=== PATIENT | male | born 1960 | race Caucasian/White ===

== ENCOUNTER 2016-09-30 11:05 | Inpatient (IN) | payer OTHER ==
[2016-09-30 11:47] VITALS: BMI 24.9
--- NOTE | 2016-09-30 13:36 | HP ---
CIWA Score - CIWA Score Nausea/Vomitin Muscle Tremors: 4-Moderate,w/Arms Extend Anxiety: 4-Mod. Anxious/Guarded Agitation: 4-Moderately Restless Paroxysmal Sweats: 3 Orientation: 0-Oriented Tacttile Disturbances: 0-None Auditory Disturbances: 0-None Visual Disturbances: 0-None Headache: 1-Very Mild CIWA-Ar Total Score: 19 Admission ROS BHS - HPI Chief Complaint: I am here detox. Allergies/Adverse Reactions: Allergies Allergy/AdvReac Type Severity Reaction Status Date / Time Iodine and Iodide Containing Allergy Verified 09/30/16 13:00 Produc History of Present Illness: pt is a 55yr old male with a history of alcohol dependence only seeking detox for treatment. Exam Limitations: Intoxication, Other (inebriate but very cooperative.) - Ebola screening Have you traveled outside of the country in the last 21 days: No Have you had contact with anyone from an Ebola affected area: No Have you been sick,other than usual withdrawal symptoms: No Do you have a fever: No - Review of Systems Constitutional: Diaphoresis, Loss of Appetite, Night Sweats, Changes in sleep, Unintentional Wgt. Loss EENT: reports: Tearing, Nose Congestion Respiratory: reports: No Symptoms reported Cardiac: reports: Lightheadedness, Syncope GI: reports: Diarrhea, Nausea, Poor Appetite, Poor Fluid Intake, Indigestion : reports: No Symptoms Reported Musculoskeletal: reports: No Symptoms Reported, Back Pain Integumentary: reports: Flushing, Sweating Neuro: reports: Tingling, Tremors, Dizziness Endocrine: reports: Excessive Sweating, Flushing, Intolerance to Cold, Intolerance to Heat Hematology: reports: No Symptoms Reported Psychiatric: reports: Judgement Intact, Mood/Affect Appropiate, Orientated x3, Agitated, Anxious Other Systems: Reviewed and Negative Patient History - Patient Medical History Hx Anemia: No Hx Asthma: No Hx Chronic Obstructive Pulmonary Disease (COPD): No Hx Cancer: No Hx Cardiac Disorders: No Hx Congestive Heart Failure: No Hx Hypertension: Yes Hx Hypercholesterolemia: Yes (TRIGLYCERIDES) Hx Pacemaker: No HX Cerebrovascular Accident: No Hx Seizures: No Hx Dementia: No Hx Diabetes: Yes (TYPE II) Hx Gastrointestinal Disorders: Yes (GERD NO MEDS) Hx Liver Disease: No Hx Genitourinary Disorders: No Hx Sexually Transmitted Disorders: No Hx Renal Disease (ESRD): No Hx Thyroid Disease: No Hx Human Immunodeficiency Virus (HIV): No Hx Hepatitis C: No Hx Depression: Yes Hx Suicide Attempt: No Hx Bipolar Disorder: No Hx Schizophrenia: No - Patient Surgical History Past Surgical History: Yes Hx Abdominal Surgery: Yes (EXPLORATORY LAP. TO REMOVE FOREIGN BODY) - PPD History Previous Implant?: Yes Documented Results: Negative w/o proof PPD to be Administered?: Yes - Reproductive History Patient is a Female of Child Bearing Age (11 -55 yrs old): No - Smoking Cessation Smoking history: Current every day smoker Aproximately how many cigarettes per day: 10 Hx Chewing Tobacco Use: No Initiated information on smoking cessation: Yes 'Breaking Loose' booklet given: 09/30/16 - Substance & Tx. History Hx Alcohol Use: Yes Hx Substance Use: No Substance Use Type: Alcohol Hx Substance Use Treatment: Yes - Substances Abused Alcohol Route: Oral Frequency: Daily Amount used: scotch(Pint) Age of first use: 20 Date of Last Use: 09/30/16 Family Disease History - Family Disease History Family Disease History: Heart Disease: Mother (HTN), Other: Father () Admission Physical Exam S - Vital Signs Vital Signs: Vital Signs - 24 hr 09/30/16 11:43 Temperature 95.7 F L Pulse Rate 101 H Respiratory 20 Rate Blood Pressure 150/92 - Physical General Appearance: Yes: Appropriately Dressed, Moderate Distress, Tremorous, Irritable, Sweating, Anxious HEENTM: Yes: Nasal Congestion, Rhinorrhea Respiratory: Yes: Lungs Clear, Normal Breath Sounds, No Respiratory Distress Neck: Yes: No masses,lesions,Nodules Breast: Yes: Within Normal Limits Cardiology: Yes: Regular Rhythm, Regular Rate, S1, S2, Tachycardia Abdominal: Yes: Normal Bowel Sounds, Non Tender, Soft Genitourinary: Yes: Within Normal Limits Back: Yes: Normal Inspection Musculoskeletal: Yes: full range of Motion Extremities: Yes: Normal Capillary Refill, Normal Inspection, Non-Tender, Tremors Neurological: Yes: Fully Oriented, Alert, Normal Response Integumentary: Yes: Normal Color, Diaphoresis Lymphatic: Yes: Within Normal Limits - Diagnostic (1) Alcohol dependence with uncomplicated withdrawal Current Visit: Yes Status: Chronic (2) Nicotine dependence Current Visit: Yes Status: Chronic Qualifiers: Nicotine product type: cigarettes Substance use status: uncomplicated Qualified Code(s): F17.210 - Nicotine dependence, cigarettes, uncomplicated (3) HTN (hypertension) Current Visit: Yes Status: Chronic Qualifiers: Hypertension type: essential hypertension Qualified Code(s): I10 - Essential (primary) hypertension (4) Hypertriglyceridemia Current Visit: Yes Status: Chronic (5) Type II diabetes mellitus Current Visit: Yes Status: Chronic Qualifiers: Diabetes mellitus complication status: without complication Cleared for Admission [facility] - Detox or Rehab [facility] Level of Care: Medically Managed Detox Regimen/Protocol: Librium S Breath Alcohol Content Breath Alcohol Content: 0.326 Urine Drug Screen - Results Drug Screen Negative: No
[2016-09-30] MEDS ORDERED: MAGNESIUM HYDROX 2400MG/30ML ORAL SUSPENSION 30 ML CUP PO PRN (13:55)
[2016-09-30] MEDS ORDERED: NICOTINE POLACRILEX 4 MG GUM BUC PRN (13:55)
[2016-09-30] MEDS ORDERED: LOPERAMIDE HCL 2 MG CAPSULE PO PRN (13:55)
[2016-09-30] MEDS ORDERED: P-EPHED 60MG/TRIPROLIDI 2.5MG TABLET PO PRN (13:55)
[2016-09-30] MEDS ORDERED: IBUPROFEN 400 MG TABLET (FP) PO PRN (13:55)
[2016-09-30] MEDS ORDERED: MENTHOL/PHENOL 1 EACH UD MM PRN (13:55)
[2016-09-30] MEDS ORDERED: guaiFENesin/D-METHORPHAN HB 10 ML UNIT-DOSE CUPS PO PRN (13:55)
[2016-09-30] MEDS ORDERED: MAGNESIUM CITRATE 300 ML BOTTLE PO PRN (13:55)
[2016-09-30] MEDS ORDERED: MAG HYDROX/AL HYDROX/SIMETH 30 ML UNIT-DOSE CUP PO PRN (13:55)
[2016-09-30] MEDS ORDERED: ACETAMINOPHEN 325 MG TABLET (FP) PO PRN (13:55)
[2016-09-30] MEDS ORDERED: chlordiazePOXIDE HCL 25 MG CAPSULE PO ONE (14:20)
[2016-09-30] MEDS: GABAPENTIN 300 MG CAPSULE (FP) PO SCH ×2 (15:30→22:06)
[2016-09-30] MEDS: INSULIN SLIDING SCALE (NOVOLOG) 1 VIAL SQ SCH (16:44)
[2016-09-30] MEDS: chlordiazePOXIDE HCL 25 MG CAPSULE PO SCH ×2 (17:07→22:05)
[2016-09-30 17:32] LABS: URINE APPEARANCE CLEAR; URINE BILIRUBIN NEGATIVE (NEGATIVE); URINE COLOR LTYELLOW; URINE GLUCOSE (UA) 1+ (NEGATIVE); URINE KETONE NEGATIVE (NEGATIVE); URINE LEUK ESTERASE NEGATIVE (NEGATIVE); URINE NITRITE NEGATIVE (NEGATIVE); URINE UROBILINOGEN NEGATIVE E.U./dl (0.2-1.0)
[2016-09-30 17:33] LABS: URINE BLOOD 2+ (NEGATIVE); URINE PROTEIN 3+ (NEGATIVE)
[2016-09-30 17:45] LABS: URINE BACTERIA FEW /hpf (NONE SEEN); URINE HYALINE CAST 8 /lpf; URINE MUCUS RARE; URINE RBC 1 /hpf (0-3); URINE WBC 1 /hpf (3-5)
[2016-09-30] MEDS: hydrOXYzine PAMOATE 50 MG CAPSULE (FP) PO PRN (18:51)
[2016-09-30 19:46] LABS: HIV 1 & 2 AB NEGATIVE; HIV 1 AGp24 NEGATIVE
[2016-09-30] MEDS ORDERED: cloNIDine HCL 0.1 MG TABLET PO PRN (20:25)
[2016-09-30] MEDS ORDERED: LOSARTAN POTASSIUM 50 MG TABLET (FP) PO SCH (20:30)
[2016-09-30] MEDS: chlordiazePOXIDE HCL 25 MG CAPSULE PO PRN (20:39)
[2016-09-30] MEDS: amLODIPine BESYLATE 10 MG TABLET (FP) PO SCH (20:58)
[2016-09-30] MEDS: THIAMINE HCL 100 MG TABLET (FP) PO SCH (22:04)
[2016-09-30] MEDS: CILOSTAZOL 50 MG TABLET (FP) PO SCH (22:05)
[2016-09-30] MEDS: diphenhydrAMINE HCL 50 MG CAPSULE PO PRN (22:07)
[2016-09-30] MEDS ORDERED: INSULIN DETEMIR 100 UNITS/ML MDV SQ ONE (22:11)
[2016-09-30] MEDS: INSULIN DETEMIR 100 UNITS/ML MDV SQ SCH (22:49)
[2016-10-01] MEDS: chlordiazePOXIDE HCL 25 MG CAPSULE PO SCH ×4 (05:58→22:02)
[2016-10-01] MEDS: GABAPENTIN 300 MG CAPSULE (FP) PO SCH ×3 (06:44→22:02)
[2016-10-01] MEDS: INSULIN SLIDING SCALE (NOVOLOG) 1 VIAL SQ SCH ×2 (06:46→17:09)
[2016-10-01] MEDS ORDERED: GEMFIBROZIL 600 MG TABLET (FP) PO SCH (07:30)
[2016-10-01] MEDS: chlordiazePOXIDE HCL 25 MG CAPSULE PO PRN ×2 (09:10→14:19)
[2016-10-01] MEDS: INSULIN DETEMIR 100 UNITS/ML MDV SQ SCH ×2 (09:11→21:54)
[2016-10-01] MEDS ORDERED: amLODIPine BESYLATE 10 MG TABLET (FP) PO SCH (10:00)
[2016-10-01] MEDS ORDERED: ESCITALOPRAM OXALATE 20 MG TABLET (FP) PO ONE (10:00)
[2016-10-01] MEDS ORDERED: LOSARTAN POTASSIUM 50 MG TABLET (FP) PO SCH (10:00)
[2016-10-01] MEDS: ATORVASTATIN CA 40 MG TABLET (FP) PO SCH (10:17)
[2016-10-01] MEDS: PRENATAL VITAMINS W/ FOLIC ACID TABLET (FP) PO SCH (10:17)
[2016-10-01] MEDS: ASPIRIN 81 MG CHEWABLE TABLETS PO SCH (10:17)
[2016-10-01] MEDS: CLOPIDOGREL BISULFATE 75 MG TABLET (FP) PO SCH (10:17)
[2016-10-01] MEDS: amLODIPine BESYLATE 10 MG TABLET (FP) PO SCH (10:18)
[2016-10-01] MEDS: LOSARTAN POTASSIUM 50 MG TABLET (FP) PO SCH (10:18)
[2016-10-01] MEDS: NICOTINE 21 MG/24 HOURS TOPICAL PATCH TD SCH (10:21)
[2016-10-01] MEDS: CILOSTAZOL 50 MG TABLET (FP) PO SCH ×2 (10:21→22:03)
[2016-10-01 10:34] LABS: ALBUMIN 4.1 g/dl (3.4-5.0); BILIRUBIN,TOTAL 0.5 mg/dL (0.2-1.0); CALCIUM 8.8 mg/dL (8.5-10.1); CREATININE 1.5 mg/dL (0.7-1.3); TOT PROT 7.4 g/dl (6.4-8.2)
[2016-10-01] MEDS: CYANOCOBALAMIN (VITAMIN B-12) 100 MCG TABLET PO SCH (11:09)
[2016-10-01] MEDS: PYRIDOXINE HCL (B-6) 50 MG TABLET (FP) PO SCH (11:11)
--- NOTE | 2016-10-01 13:42 | CONSULT ---
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 Substance Abuse History: - Smoking Cessation. Smoking history: Current every day smoker. Aproximately how many cigarettes per day: 10. Hx Chewing Tobacco Use: No. Initiated information on smoking cessation: Yes. 'Breaking Loose' booklet given: 09/30/16. - Substance & Tx. History. Hx Alcohol Use: Yes. Hx Substance Use: No. Substance Use Type: Alcohol. Hx Substance Use Treatment: Yes. - Substances Abused. Alcohol. Route: Oral. Frequency: Daily. Amount used: scotch(Pint). Age of first use: 20. Date of Last Use: 09/30/16. Confirmed by patient. Medical History: Significant for a history of dyslipidemia,gallstones,diabetes mellitus,GERD,low back pain,herniated discs and abdominal surgery for removal of foreign body. Psychiatric History: No reported history of psychiatric hospitalizations.Patientis,however,addressing anxiety and depression with his primary care physician (prescribed lexapro 20 mg/day).Patient denies history of suicide attempts.Mr Delfin reports adequate sleep.He requests continuity of lexapro in his regime of treatment. Physical/Sexual Abuse/Trauma History: Patient denies. Mental Status Exam - Mental Status Exam Alert and Oriented to: Time, Place, Person Cognitive Function: Good Patient Appearance: Well Groomed Mood: Hopeful, Euthymic Affect: Appropriate, Normal Range Patient Behavior: Appropriate, Cooperative Speech Pattern: Clear Voice Loudness: Normal Thought Process: Goal Oriented Thought Disorder: Not Present Hallucinations: Denies Suicidal Ideation: Denies Homicidal Ideation: Denies Insight/Judgement: Fair Sleep: Well Appetite: Good Muscle strength/Tone: Normal Gait/Station: Normal Psychiatric Findings - Problem List ([place] 1, 2,3) (1) Alcohol dependence with uncomplicated withdrawal Current Visit: Yes Status: Acute (2) Nicotine dependence Current Visit: Yes Status: Acute Qualifiers: Nicotine product type: cigarettes Substance use status: uncomplicated Qualified Code(s): F17.210 - Nicotine dependence, cigarettes, uncomplicated (3) Alcohol-induced mood disorder Current Visit: Yes Status: Acute (4) Depressive disorder Current Visit: Yes Status: Chronic (5) HTN (hypertension) Current Visit: Yes Status: Chronic Qualifiers: Hypertension type: essential hypertension Qualified Code(s): I10 - Essential (primary) hypertension (6) Hypertriglyceridemia Current Visit: Yes Status: Chronic (7) Type II diabetes mellitus Current Visit: Yes Status: Chronic Qualifiers: Diabetes mellitus complication status: without complication - Initial Treatment Plan Initial Treatment Plan: Psychoeducation.Detoxification.Lexapro 20 mg po daily.Side effects/benefits discussed with the patient.He agrees with plan.Observation.
[2016-10-01 14:08] LABS: MCH 30.1 pg (25.7-33.7); MCHC 33.5 g/dl (32.0-35.9); MEAN CELL VOLUME 89.7 fl (80-96); MEAN PLT VOLUME 8.1 fl (7.5-11.1); PLATELET COUNT 210 K/MM3 (134-434); RDW 14.1 % (11.9-15.9); WHITE BLOOD COUNT 5.3 K/mm3 (4.0-10.0)
[2016-10-01] MEDS: ESCITALOPRAM OXALATE 20 MG TABLET (FP) PO SCH (14:18)
--- NOTE | 2016-10-01 14:26 | PN ---
[facility] CIWA - CIWA Score Nausea/Vomitin-Mild Nausea/No Vomiting Muscle Tremors: 4-Moderate,w/Arms Extend Anxiety: 4-Mod. Anxious/Guarded Agitation: 4-Moderately Restless Paroxysmal Sweats: 3 Orientation: 0-Oriented Tacttile Disturbances: 1-Very Mild Itch/Numbness Auditory Disturbances: 0-None Visual Disturbances: 0-None Headache: 0-None Present CIWA-Ar Total Score: 17 S Progress Note (SOAP) Subjective: ANXIETY,TREMORS,SWEATING,INTERRUPTED SLEEP,RESTLESS. Objective: 10/01/16 14:25 Vital Signs - 8 hr 10/01/16 10/01/16 07:53 09:37 Temperature 97.2 F L Pulse Rate 78 89 Respiratory 18 Rate Blood Pressure 131/68 155/83 Laboratory Tests 09/30/16 09/30/16 09/30/16 13:40 15:00 15:00 WBC Corrected WBC (auto) RBC Hgb Hct MCV MCHC RDW Plt Count MPV Differential Comment Platelet Estimate Platelet Comment RBC Morphology Sodium Potassium Chloride Carbon Dioxide Anion Gap BUN Creatinine Creat Clearance w eGFR POC Glucometer 150 Random Glucose Calcium Total Bilirubin AST ALT Alkaline Phosphatase Total Protein Albumin Urine Color Ltyellow Urine Appearance Clear Urine pH 5.0 Ur Specific [place] 1.017 Urine Protein 3+ H Urine Glucose (UA) 1+ H Urine Ketones Negative Urine Blood 2+ H Urine Nitrite Negative Urine Bilirubin Negative Urine Urobilinogen Negative Ur Leukocyte Esterase Negative Urine RBC 1 Urine WBC 1 Ur Epithelial Cells Rare Urine Bacteria Few Hyaline Casts 8 Urine Mucus Rare RPR Titer HIV 1&2 Antibody Screen Negative HIV P24 Antigen Negative 09/30/16 09/30/16 10/01/16 16:23 20:42 06:00 WBC Cancelled Corrected WBC (auto) Cancelled RBC Cancelled Hgb Cancelled Hct Cancelled MCV Cancelled MCHC Cancelled RDW Cancelled Plt Count Cancelled MPV Cancelled Differential Comment Cancelled Platelet Estimate Cancelled Platelet Comment Cancelled RBC Morphology Cancelled Sodium Potassium Chloride Carbon Dioxide Anion Gap BUN Creatinine Creat Clearance w eGFR POC Glucometer 136 181 Random Glucose Calcium Total Bilirubin AST ALT Alkaline Phosphatase Total Protein Albumin Urine Color Urine Appearance Urine pH Ur Specific [place] Urine Protein Urine Glucose (UA) Urine Ketones Urine Blood Urine Nitrite Urine Bilirubin Urine Urobilinogen Ur Leukocyte Esterase Urine RBC Urine WBC Ur Epithelial Cells Urine Bacteria Hyaline Casts Urine Mucus RPR Titer HIV 1&2 Antibody Screen HIV P24 Antigen 10/01/16 10/01/16 10/01/16 06:00 06:00 06:42 WBC Corrected WBC (auto) RBC Hgb Hct MCV MCHC RDW Plt Count MPV Differential Comment Platelet Estimate Platelet Comment RBC Morphology Sodium 145 Potassium 4.0 Chloride 108 H Carbon Dioxide 25 Anion Gap 12 BUN 19 H Creatinine 1.5 H Creat Clearance w eGFR 48.95 POC Glucometer 76 Random Glucose 164 H D Calcium 8.8 Total Bilirubin 0.5 D AST 53 H D ALT 45 D Alkaline Phosphatase 87 Total Protein 7.4 Albumin 4.1 Urine Color Urine Appearance Urine pH Ur Specific [place] Urine Protein Urine Glucose (UA) Urine Ketones Urine Blood Urine Nitrite Urine Bilirubin Urine Urobilinogen Ur Leukocyte Esterase Urine RBC Urine WBC Ur Epithelial Cells Urine Bacteria Hyaline Casts Urine Mucus RPR Titer Nonreactive HIV 1&2 Antibody Screen HIV P24 Antigen 10/01/16 10/01/16 09:08 11:30 WBC 5.3 Corrected WBC (auto) RBC 4.56 Hgb 13.7 Hct 40.9 MCV 89.7 MCHC 33.5 RDW 14.1 D Plt Count 210 D MPV 8.1 D Differential Comment Platelet Estimate Platelet Comment RBC Morphology Sodium Potassium Chloride Carbon Dioxide Anion Gap BUN Creatinine Creat Clearance w eGFR POC Glucometer 184 Random Glucose Calcium Total Bilirubin AST ALT Alkaline Phosphatase Total Protein Albumin Urine Color Urine Appearance Urine pH Ur Specific [place] Urine Protein Urine Glucose (UA) Urine Ketones Urine Blood Urine Nitrite Urine Bilirubin Urine Urobilinogen Ur Leukocyte Esterase Urine RBC Urine WBC Ur Epithelial Cells Urine Bacteria Hyaline Casts Urine Mucus RPR Titer HIV 1&2 Antibody Screen HIV P24 Antigen LABS NOTED Assessment: 10/01/16 14:25 WITHDRAWAL SX. Plan: CONTINUE DETOX
[2016-10-01] MEDS ORDERED: INSULIN (NOVOLOG) ASPART 100 UNITS/ML 10ML VIAL ONE ×2 (16:52→21:30)
[2016-10-01] MEDS: THIAMINE HCL 100 MG TABLET (FP) PO SCH (22:03)
[2016-10-02] MEDS: chlordiazePOXIDE HCL 25 MG CAPSULE PO SCH ×2 (06:07→10:31)
[2016-10-02] MEDS: GABAPENTIN 300 MG CAPSULE (FP) PO SCH ×3 (06:08→22:37)
[2016-10-02] MEDS: INSULIN DETEMIR 100 UNITS/ML MDV SQ SCH ×2 (08:57→22:38)
[2016-10-02] MEDS: INSULIN SLIDING SCALE (NOVOLOG) 1 VIAL SQ SCH ×2 (08:57→17:15)
[2016-10-02] MEDS: ASPIRIN 81 MG CHEWABLE TABLETS PO SCH (10:30)
[2016-10-02] MEDS: NICOTINE 21 MG/24 HOURS TOPICAL PATCH TD SCH (10:31)
[2016-10-02] MEDS: ESCITALOPRAM OXALATE 20 MG TABLET (FP) PO SCH (10:31)
[2016-10-02] MEDS: PYRIDOXINE HCL (B-6) 50 MG TABLET (FP) PO SCH (10:31)
[2016-10-02] MEDS: CILOSTAZOL 50 MG TABLET (FP) PO SCH ×2 (10:31→22:37)
[2016-10-02] MEDS: PRENATAL VITAMINS W/ FOLIC ACID TABLET (FP) PO SCH (10:31)
[2016-10-02] MEDS: amLODIPine BESYLATE 10 MG TABLET (FP) PO SCH (10:31)
[2016-10-02] MEDS: LOSARTAN POTASSIUM 50 MG TABLET (FP) PO SCH (10:31)
[2016-10-02] MEDS: ATORVASTATIN CA 40 MG TABLET (FP) PO SCH (10:31)
[2016-10-02] MEDS: CLOPIDOGREL BISULFATE 75 MG TABLET (FP) PO SCH (10:31)
[2016-10-02] MEDS: CYANOCOBALAMIN (VITAMIN B-12) 100 MCG TABLET PO SCH (10:32)
[2016-10-02] MEDS: chlordiazePOXIDE HCL 25 MG CAPSULE PO PRN (14:47)
[2016-10-02] MEDS ORDERED: INSULIN (NOVOLOG) ASPART 100 UNITS/ML 10ML VIAL ONE (16:45)
[2016-10-02] MEDS: chlordiazePOXIDE 5 MG CAPSULE PO SCH ×2 (17:15→22:37)
[2016-10-02] MEDS: hydrOXYzine PAMOATE 50 MG CAPSULE (FP) PO PRN (20:10)
--- NOTE | 2016-10-02 21:52 | PN ---
[id number] Anxiety: 4-Mod. Anxious/Guarded Agitation: 3 Paroxysmal Sweats: 3 Orientation: 0-Oriented Tacttile Disturbances: 1-Very Mild Itch/Numbness Auditory Disturbances: 0-None Visual Disturbances: 0-None Headache: 0-None Present CIWA-Ar Total Score: 17 BHS Progress Note (SOAP) Subjective: ANXIETY,TREMORS,SWEATING,INTERRUPTED SLEEP,RESTLESS. Objective: 10/02/16 21:51 Vital Signs Temperature 96.8 F L 10/02/16 20:09 Pulse Rate 88 10/02/16 20:09 Respiratory Rate 16 10/02/16 20:09 Blood Pressure 114/63 10/02/16 20:09 O2 Sat by Pulse Oximetry (%) Assessment: 10/02/16 21:52 Withdrawal sx. Plan: CONTINUE DETOX
[2016-10-02] MEDS: THIAMINE HCL 100 MG TABLET (FP) PO SCH (22:37)
[2016-10-02] MEDS: diphenhydrAMINE HCL 50 MG CAPSULE PO PRN (22:38)
[2016-10-03] MEDS: GABAPENTIN 300 MG CAPSULE (FP) PO SCH ×3 (05:37→22:28)
[2016-10-03] MEDS: chlordiazePOXIDE 5 MG CAPSULE PO SCH ×2 (05:37→10:11)
[2016-10-03] MEDS: INSULIN DETEMIR 100 UNITS/ML MDV SQ SCH ×2 (07:41→22:30)
[2016-10-03] MEDS: INSULIN SLIDING SCALE (NOVOLOG) 1 VIAL SQ SCH ×2 (07:42→16:30)
[2016-10-03] MEDS ORDERED: INSULIN (NOVOLOG) ASPART 100 UNITS/ML 10ML VIAL ONE ×2 (07:46→17:05)
[2016-10-03] MEDS: PYRIDOXINE HCL (B-6) 50 MG TABLET (FP) PO SCH (10:10)
[2016-10-03] MEDS: amLODIPine BESYLATE 10 MG TABLET (FP) PO SCH (10:10)
[2016-10-03] MEDS: CLOPIDOGREL BISULFATE 75 MG TABLET (FP) PO SCH (10:10)
[2016-10-03] MEDS: ESCITALOPRAM OXALATE 20 MG TABLET (FP) PO SCH (10:10)
[2016-10-03] MEDS: ASPIRIN 81 MG CHEWABLE TABLETS PO SCH (10:10)
[2016-10-03] MEDS: NICOTINE 21 MG/24 HOURS TOPICAL PATCH TD SCH (10:11)
[2016-10-03] MEDS: PRENATAL VITAMINS W/ FOLIC ACID TABLET (FP) PO SCH (10:11)
[2016-10-03] MEDS: CYANOCOBALAMIN (VITAMIN B-12) 100 MCG TABLET PO SCH (10:11)
[2016-10-03] MEDS: ATORVASTATIN CA 40 MG TABLET (FP) PO SCH (10:11)
[2016-10-03] MEDS: LOSARTAN POTASSIUM 50 MG TABLET (FP) PO SCH (10:11)
[2016-10-03] MEDS: CILOSTAZOL 50 MG TABLET (FP) PO SCH ×2 (10:11→22:28)
[2016-10-03] MEDS: hydrOXYzine PAMOATE 50 MG CAPSULE (FP) PO PRN (15:02)
[2016-10-03] MEDS ORDERED: ZOLPIDEM TARTRATE 10 MG TABLET (PARK CARE ONLY) PO PRN (16:13)
--- NOTE | 2016-10-03 16:18 | PN ---
S Progress Note (SOAP) Subjective: Sweating, tremor, interrupted sleep (benadryl ineffective, wants ambien), anxiety Objective: 10/03/16 16:14 Last Vital Signs Temp Pulse Resp BP Pulse Ox 97 F L 97 H 18 150/85 10/03/16 13:54 10/03/16 13:54 10/03/16 13:54 10/03/16 13:54 Laboratory Tests 09/30/16 09/30/16 09/30/16 13:40 15:00 15:00 WBC Corrected WBC (auto) RBC Hgb Hct MCV MCHC RDW Plt Count MPV Differential Comment Platelet Estimate Platelet Comment RBC Morphology Sodium Potassium Chloride Carbon Dioxide Anion Gap BUN Creatinine Creat Clearance w eGFR POC Glucometer 150 Random Glucose Calcium Total Bilirubin AST ALT Alkaline Phosphatase Total Protein Albumin Urine Color Ltyellow Urine Appearance Clear Urine pH 5.0 Ur Specific [place] 1.017 Urine Protein 3+ H Urine Glucose (UA) 1+ H Urine Ketones Negative Urine Blood 2+ H Urine Nitrite Negative Urine Bilirubin Negative Urine Urobilinogen Negative Ur Leukocyte Esterase Negative Urine RBC 1 Urine WBC 1 Ur Epithelial Cells Rare Urine Bacteria Few Hyaline Casts 8 Urine Mucus Rare RPR Titer HIV 1&2 Antibody Screen Negative HIV P24 Antigen Negative 09/30/16 09/30/16 10/01/16 16:23 20:42 06:00 WBC Cancelled Corrected WBC (auto) Cancelled RBC Cancelled Hgb Cancelled Hct Cancelled MCV Cancelled MCHC Cancelled RDW Cancelled Plt Count Cancelled MPV Cancelled Differential Comment Cancelled Platelet Estimate Cancelled Platelet Comment Cancelled RBC Morphology Cancelled Sodium Potassium Chloride Carbon Dioxide Anion Gap BUN Creatinine Creat Clearance w eGFR POC Glucometer 136 181 Random Glucose Calcium Total Bilirubin AST ALT Alkaline Phosphatase Total Protein Albumin Urine Color Urine Appearance Urine pH Ur Specific [place] Urine Protein Urine Glucose (UA) Urine Ketones Urine Blood Urine Nitrite Urine Bilirubin Urine Urobilinogen Ur Leukocyte Esterase Urine RBC Urine WBC Ur Epithelial Cells Urine Bacteria Hyaline Casts Urine Mucus RPR Titer HIV 1&2 Antibody Screen HIV P24 Antigen 10/01/16 10/01/16 10/01/16 06:00 06:00 06:42 WBC Corrected WBC (auto) RBC Hgb Hct MCV MCHC RDW Plt Count MPV Differential Comment Platelet Estimate Platelet Comment RBC Morphology Sodium 145 Potassium 4.0 Chloride 108 H Carbon Dioxide 25 Anion Gap 12 BUN 19 H Creatinine 1.5 H Creat Clearance w eGFR 48.95 POC Glucometer 76 Random Glucose 164 H D Calcium 8.8 Total Bilirubin 0.5 D AST 53 H D ALT 45 D Alkaline Phosphatase 87 Total Protein 7.4 Albumin 4.1 Urine Color Urine Appearance Urine pH Ur Specific [place] Urine Protein Urine Glucose (UA) Urine Ketones Urine Blood Urine Nitrite Urine Bilirubin Urine Urobilinogen Ur Leukocyte Esterase Urine RBC Urine WBC Ur Epithelial Cells Urine Bacteria Hyaline Casts Urine Mucus RPR Titer Nonreactive HIV 1&2 Antibody Screen HIV P24 Antigen 10/01/16 10/01/16 10/01/16 09:08 11:30 16:19 WBC 5.3 Corrected WBC (auto) RBC 4.56 Hgb 13.7 Hct 40.9 MCV 89.7 MCHC 33.5 RDW 14.1 D Plt Count 210 D MPV 8.1 D Differential Comment Platelet Estimate Platelet Comment RBC Morphology Sodium Potassium Chloride Carbon Dioxide Anion Gap BUN Creatinine Creat Clearance w eGFR POC Glucometer 184 220 Random Glucose Calcium Total Bilirubin AST ALT Alkaline Phosphatase Total Protein Albumin Urine Color Urine Appearance Urine pH Ur Specific [place] Urine Protein Urine Glucose (UA) Urine Ketones Urine Blood Urine Nitrite Urine Bilirubin Urine Urobilinogen Ur Leukocyte Esterase Urine RBC Urine WBC Ur Epithelial Cells Urine Bacteria Hyaline Casts Urine Mucus RPR Titer HIV 1&2 Antibody Screen HIV P24 Antigen 10/01/16 10/02/16 10/02/16 20:56 06:05 16:22 WBC Corrected WBC (auto) RBC Hgb Hct MCV MCHC RDW Plt Count MPV Differential Comment Platelet Estimate Platelet Comment RBC Morphology Sodium Potassium Chloride Carbon Dioxide Anion Gap BUN Creatinine Creat Clearance w eGFR POC Glucometer 180 180 359 Random Glucose Calcium Total Bilirubin AST ALT Alkaline Phosphatase Total Protein Albumin Urine Color Urine Appearance Urine pH Ur Specific [place] Urine Protein Urine Glucose (UA) Urine Ketones Urine Blood Urine Nitrite Urine Bilirubin Urine Urobilinogen Ur Leukocyte Esterase Urine RBC Urine WBC Ur Epithelial Cells Urine Bacteria Hyaline Casts Urine Mucus RPR Titer HIV 1&2 Antibody Screen HIV P24 Antigen 10/02/16 10/03/16 21:43 05:35 WBC Corrected WBC (auto) RBC Hgb Hct MCV MCHC RDW Plt Count MPV Differential Comment Platelet Estimate Platelet Comment RBC Morphology Sodium Potassium Chloride Carbon Dioxide Anion Gap BUN Creatinine Creat Clearance w eGFR POC Glucometer 198 178 Random Glucose Calcium Total Bilirubin AST ALT Alkaline Phosphatase Total Protein Albumin Urine Color Urine Appearance Urine pH Ur Specific [place] Urine Protein Urine Glucose (UA) Urine Ketones Urine Blood Urine Nitrite Urine Bilirubin Urine Urobilinogen Ur Leukocyte Esterase Urine RBC Urine WBC Ur Epithelial Cells Urine Bacteria Hyaline Casts Urine Mucus RPR Titer HIV 1&2 Antibody Screen HIV P24 Antigen Labs noted: serum creatinine 1.5, bun 19, glucose 164, UA 2+ blood and 3+ protein Assessment: 10/03/16 16:18 Withdrawal symptoms Pre renal azotemia noted Hyperglycemia secondary to DMT2 noted Plan: Continue detox Pre renal azotemia: encourage to drink more water, repeat UA and BMP in AM Hyperglycemia secondary to DMT2: continue present regimen
[2016-10-03] MEDS: chlordiazePOXIDE HCL 10 MG CAPSULE PO SCH ×2 (17:32→22:29)
[2016-10-03] MEDS: THIAMINE HCL 100 MG TABLET (FP) PO SCH (22:28)
[2016-10-04] MEDS: GABAPENTIN 300 MG CAPSULE (FP) PO SCH (05:39)
[2016-10-04] MEDS: chlordiazePOXIDE HCL 10 MG CAPSULE PO SCH ×2 (05:39→10:19)
[2016-10-04] MEDS ORDERED: INSULIN (NOVOLOG) ASPART 100 UNITS/ML 10ML VIAL ONE (06:14)
[2016-10-04] MEDS: INSULIN DETEMIR 100 UNITS/ML MDV SQ SCH (07:31)
[2016-10-04] MEDS: INSULIN SLIDING SCALE (NOVOLOG) 1 VIAL SQ SCH (07:32)
[2016-10-04 10:15] VITALS: BP 134/79; PULSE 94; TEMP 95.9
[2016-10-04] MEDS: ASPIRIN 81 MG CHEWABLE TABLETS PO SCH (10:18)
[2016-10-04] MEDS: amLODIPine BESYLATE 10 MG TABLET (FP) PO SCH (10:18)
[2016-10-04] MEDS: CLOPIDOGREL BISULFATE 75 MG TABLET (FP) PO SCH (10:18)
[2016-10-04] MEDS: ESCITALOPRAM OXALATE 20 MG TABLET (FP) PO SCH (10:18)
[2016-10-04] MEDS: LOSARTAN POTASSIUM 50 MG TABLET (FP) PO SCH (10:18)
[2016-10-04] MEDS: PRENATAL VITAMINS W/ FOLIC ACID TABLET (FP) PO SCH (10:19)
[2016-10-04] MEDS: PYRIDOXINE HCL (B-6) 50 MG TABLET (FP) PO SCH (10:19)
[2016-10-04] MEDS: CYANOCOBALAMIN (VITAMIN B-12) 100 MCG TABLET PO SCH (10:20)
[2016-10-04] MEDS: ATORVASTATIN CA 40 MG TABLET (FP) PO SCH (10:20)
[2016-10-04] MEDS: NICOTINE 21 MG/24 HOURS TOPICAL PATCH TD SCH (10:20)
[2016-10-04] MEDS: CILOSTAZOL 50 MG TABLET (FP) PO SCH (10:20)
[2016-10-04 10:27] LABS: CALCIUM 8.4 mg/dL (8.5-10.1); CREATININE 1.5 mg/dL (0.7-1.3)
--- NOTE | 2016-10-04 10:28 | DS ---
[facility] Detox Discharge Summary Admission Date: 09/30/16 Discharge Date: 10/04/16 - History Present History: Alcohol Dependence Pertinent Past History: HTN HYPERTRIGLYCERIDEMIA TYPE II DM - Physical Exam Results Vital Signs: Vital Signs Temperature 95.9 F L 10/04/16 10:14 Pulse Rate 94 H 10/04/16 10:14 Respiratory Rate 20 10/04/16 10:14 Blood Pressure 134/79 10/04/16 10:14 O2 Sat by Pulse Oximetry (%) Pertinent Admission Physical Exam Findings: WITHDRAWAL SX. Laboratory Last Values WBC 5.3 K/mm3 (4.0-10.0) 10/01/16 11:30 Corrected WBC (auto) Cancelled 10/01/16 06:00 RBC 4.56 M/mm3 (4.00-5.60) 10/01/16 11:30 Hgb 13.7 GM/dL (11.7-16.9) 10/01/16 11:30 Hct 40.9 % (35.4-49) 10/01/16 11:30 MCV 89.7 fl (80-96) 10/01/16 11:30 MCHC 33.5 g/dl (32.0-35.9) 10/01/16 11:30 RDW 14.1 % (11.9-15.9) D 10/01/16 11:30 Plt Count 210 K/MM3 (134-434) D 10/01/16 11:30 MPV 8.1 fl (7.5-11.1) D 10/01/16 11:30 Differential Comment Cancelled 10/01/16 06:00 Platelet Estimate Cancelled 10/01/16 06:00 Platelet Comment Cancelled 10/01/16 06:00 Platelet Comment Cancelled 10/01/16 06:00 RBC Morphology Cancelled 10/01/16 06:00 Sodium 145 mmol/L (136-145) 10/01/16 06:00 Potassium 4.0 mmol/L (3.5-5.1) 10/01/16 06:00 Chloride 108 mmol/L (98-107) H 10/01/16 06:00 Carbon Dioxide 25 mmol/L (21-32) 10/01/16 06:00 Anion Gap 12 (8-16) 10/01/16 06:00 BUN 19 mg/dL (7-18) H 10/01/16 06:00 Creatinine 1.5 mg/dL (0.7-1.3) H 10/01/16 06:00 Creat Clearance w eGFR 48.95 (>60) 10/01/16 06:00 POC Glucometer 212 UNITS (()) 10/04/16 05:38 Random Glucose 164 mg/dL (74-106) H D 10/01/16 06:00 Calcium 8.8 mg/dL (8.5-10.1) 10/01/16 06:00 Total Bilirubin 0.5 mg/dL (0.2-1.0) D 10/01/16 06:00 AST 53 U/L (15-37) H D 10/01/16 06:00 ALT 45 U/L (12-78) D 10/01/16 06:00 Alkaline Phosphatase 87 U/L (45-117) 10/01/16 06:00 Total Protein 7.4 g/dl (6.4-8.2) 10/01/16 06:00 Albumin 4.1 g/dl (3.4-5.0) 10/01/16 06:00 Urine Color Ltyellow 09/30/16 15:00 Urine Appearance Clear 09/30/16 15:00 Urine pH 5.0 (5.0-8.0) 09/30/16 15:00 Ur Specific [place] 1.017 (1.001-1.035) 09/30/16 15:00 Urine Protein 3+ (NEGATIVE) H 09/30/16 15:00 Urine Glucose (UA) 1+ (NEGATIVE) H 09/30/16 15:00 Urine Ketones Negative (NEGATIVE) 09/30/16 15:00 Urine Blood 2+ (NEGATIVE) H 09/30/16 15:00 Urine Nitrite Negative (NEGATIVE) 09/30/16 15:00 Urine Bilirubin Negative (NEGATIVE) 09/30/16 15:00 Urine Urobilinogen Negative E.U./dl (0.2-1.0) 09/30/16 15:00 Ur Leukocyte Esterase Negative (NEGATIVE) 09/30/16 15:00 Urine RBC 1 /hpf (0-3) 09/30/16 15:00 Urine WBC 1 /hpf (3-5) 09/30/16 15:00 Ur Epithelial Cells Rare /hpf (FEW) 09/30/16 15:00 Urine Bacteria Few /hpf (NONE SEEN) 09/30/16 15:00 Hyaline Casts 8 /lpf 09/30/16 15:00 Urine Mucus Rare 09/30/16 15:00 RPR Titer Nonreactive (NONREACTIVE) 10/01/16 06:00 HIV 1&2 Antibody Screen Negative 09/30/16 15:00 HIV P24 Antigen Negative 09/30/16 15:00 LABS NOTED - Treatment Hospital Course: Detox Protocol Followed, Detoxed Safely, Responded well, Discharged Condition Good, Rehab Referral Accepted - Medication Discharge Medications: Ambulatory Orders Amlodipine Besylate [Norvasc -] 10 mg PO DAILY 10/17/14 Cilostazol [Pletal -] 50 mg PO BID 10/17/14 Clopidogrel Bisulfate [Clopidogrel] 75 mg PO DAILY 10/17/14 Escitalopram Oxalate [Lexapro -] 20 mg PO DAILY 10/17/14 Gabapentin 600 mg PO TID 10/17/14 Gemfibrozil [Lopid -] 600 mg PO DAILY 10/17/14 Insulin Detemir [Levemir Flextouch] 30 unit SQ ACBK 10/17/14 Insulin Detemir [Levemir Flextouch] 40 unit SQ HS 10/17/14 Aspirin [Children's Aspirin] 81 mg PO DAILY 09/30/16 Atorvastatin Ca [Lipitor] 40 mg PO DAILY 09/30/16 Cyanocobalamin [Vitamin B12 -] 100 mcg PO DAILY 09/30/16 Folic Acid 1 mg PO DAILY 09/30/16 Losartan Potassium 50 mg PO DAILY 09/30/16 Pyridoxine HCl (B-6) [Vitamin B6] 100 mg PO DAILY 09/30/16 Thiamine HCl [B-1] 100 mg PO DAILY 09/30/16 Escitalopram Oxalate [Lexapro -] 20 mg PO DAILY #30 tablet 10/01/16 - Diagnosis (1) Alcohol dependence with uncomplicated withdrawal Current Visit: Yes Status: Acute (2) Alcohol-induced mood disorder Current Visit: Yes Status: Acute (3) Nicotine dependence Current Visit: Yes Status: Acute Qualifiers: Nicotine product type: cigarettes Substance use status: uncomplicated Qualified Code(s): F17.210 - Nicotine dependence, cigarettes, uncomplicated (4) Depressive disorder Current Visit: Yes Status: Chronic (5) HTN (hypertension) Current Visit: Yes Status: Chronic Qualifiers: Hypertension type: essential hypertension Qualified Code(s): I10 - Essential (primary) hypertension (6) Hypertriglyceridemia Current Visit: Yes Status: Chronic (7) Type II diabetes mellitus Current Visit: Yes Status: Chronic Qualifiers: Diabetes mellitus complication status: without complication Diabetes mellitus intermediate designer insulin use: without intermediate designer use Qualified Code(s): E11.9 - Type 2 diabetes mellitus without complications - AMA Did Patient Leave Against Medical Advice: No
--- NOTE | 2016-10-06 09:39 | EKG ---
Test Reason : Blood Pressure : / mmHG Vent. Rate : 087 BPM Atrial Rate : 087 BPM P-R Int : 132 ms QRS Dur : 118 ms QT Int : 398 ms P-R-T Axes : 044 086 044 degrees QTc Int : 478 ms NORMAL SINUS RHYTHM RIGHT BUNDLE BRANCH BLOCK CANNOT RULE OUT INFERIOR INFARCT , AGE UNDETERMINED ABNORMAL ECG WHEN COMPARED WITH ECG OF 15-OCT-2016 15:47, NO SIGNIFICANT CHANGE WAS FOUND Confirmed by TOMASA MERCHANT, PETE ([id number]) on 10/06/2016 9:39:03 AM Referred By: Brenton Arias Confirmed By:PETE RANDOLPH MD
--- NOTE | 2016-10-06 09:45 | EKG ---
Test Reason : Blood Pressure : / mmHG Vent. Rate : 083 BPM Atrial Rate : 083 BPM P-R Int : 122 ms QRS Dur : 116 ms QT Int : 422 ms P-R-T Axes : -23 084 044 degrees QTc Int : 495 ms NORMAL SINUS RHYTHM RIGHT BUNDLE BRANCH BLOCK ABNORMAL ECG NO PREVIOUS ECGS AVAILABLE Confirmed by TOMASA MERCHANT, PETE ([id number]) on 10/06/2016 9:45:16 AM Referred By: Brenton Arias Confirmed By:PETE RANDOLPH MD
== END 2016-10-04 12:26 | disposition home or self-care (01) | DRG 775 ==
LOC: YASAS 11:05 → Y3N 14:13
PROVIDERS: ADMIT Internal Medicine; ATTEND Internal Medicine
PROC: HZ2ZZZZ Detoxification Services for Substance Abuse Treatment (ICD-10-PCS; principal; 2016-09-30)
DX: F10.230 Alcohol dependence with withdrawal, uncomplicated (principal); F10.24 Alcohol dependence with alcohol-induced mood disorder; F17.210 Nicotine dependence, cigarettes, uncomplicated; F32.9 Major depressive disorder, single episode, unspecified; I10 Essential (primary) hypertension; E78.5 Hyperlipidemia, unspecified; E11.65 Type 2 diabetes mellitus with hyperglycemia; K21.9 Gastro-esophageal reflux disease without esophagitis; M54.5 Low back pain; E78.1 Pure hyperglyceridemia; Z87.19 Personal history of other diseases of the digestive system; Z79.4 Long term (current) use of insulin
CPT/HCPCS: 36415; 80048; 80053; 81003; 81015; 85027; 86593; 87389; 93005; 93010

== ENCOUNTER 2019-05-15 11:24 | Emergency (ER) | payer OTHER ==
[2019-05-15 11:36] VITALS: TEMP 99.1; BMI 23.1
[2019-05-15] MEDS ORDERED: SODIUM CHLORIDE 1,000 ML IV STA (11:44)
[2019-05-15] MEDS ORDERED: chlordiazePOXIDE HCL 25 MG CAPSULE PO ONE (11:45)
[2019-05-15] MEDS ORDERED: chlordiazePOXIDE HCL 25 MG CAPSULE ONE (12:25)
--- NOTE | 2019-05-15 13:04 | PDOC ---
History of Present Illness - General Chief Complaint: Alcohol intoxication Stated Complaint: DETOX Time Seen by Provider: 05/15/19 11:42 History Source: Patient - History of Present Illness Timing/Duration: reports: other Past History - Past Medical History Allergies/Adverse Reactions: Allergies Allergy/AdvReac Type Severity Reaction Status Date / Time Iodine and Iodide Containing Allergy Verified 05/15/19 11:26 Produc Home Medications: Ambulatory Orders Amlodipine Besylate [Norvasc -] 10 mg PO DAILY 10/17/14 Cilostazol [Pletal -] 50 mg PO DAILY 10/17/14 Clopidogrel Bisulfate [Clopidogrel] 75 mg PO DAILY 10/17/14 Gemfibrozil [Lopid -] 600 mg PO DAILY 10/17/14 Insulin Detemir [Levemir Flextouch] 18 unit SQ BID 10/17/14 Aspirin [Children's Aspirin] 81 mg PO DAILY 09/30/16 Atorvastatin Ca [Lipitor] 40 mg PO DAILY 09/30/16 Cyanocobalamin [Vitamin B12 -] 100 mcg PO DAILY 09/30/16 Folic Acid 1 mg PO DAILY 09/30/16 Losartan Potassium 50 mg PO DAILY 09/30/16 Pyridoxine HCl (B-6) [Vitamin B6] 100 mg PO DAILY 09/30/16 Thiamine HCl [B-1] 100 mg PO DAILY 09/30/16 Escitalopram Oxalate [Lexapro -] 20 mg PO DAILY 05/15/19 Gabapentin [Neurontin -] 100 mg PO BID 05/15/19 Anemia: No Asthma: No Cancer: No Cardiac Disorders: No CVA: No COPD: No CHF: No Dementia: No Diabetes: Yes (TYPE II) GI Disorders: Yes (GERD NO MEDS) Disorders: No HTN: Yes Hypercholesterolemia: Yes (TRIGLYCERIDES) Kidney Stones: No Liver Disease: No Seizures: No Thyroid Disease: No - Surgical History Abdominal Surgery: Yes (EXPLORATORY LAP. TO REMOVE FOREIGN BODY) - Reproductive History Testicular Surgery: No - Suicide/Smoking/Psychosocial Hx Smoking History: Unknown if ever smoked Have you smoked in the past 12 months: No Number of Cigarettes Smoked Daily: 10 Information on smoking cessation initiated: No 'Breaking Loose' booklet given: 09/30/16 Hx Alcohol Use: No Drug/Substance Use Hx: No Substance Use Type: Alcohol Hx Substance Use Treatment: Yes Abd/GI Specific PMHX - Complaint Specific PMHX Hepatitis: No Pancreatitis: No Review of Systems - Review of Systems Constitutional: No: Chills, Fever Respiratory: No: Shortness of Breath Cardiac (ROS): No: Chest Pain ABD/GI: No: Diarrhea, Nausea, Vomiting, Abdominal cramping Neurological: No: Headache, Numbness, Tremors, Weakness, Dizziness *Physical Exam - Vital Signs Last Vital Signs Temp Pulse Resp BP Pulse Ox 99.1 F 92 H 16 165/90 100 05/15/19 11:26 05/15/19 11:26 05/15/19 11:26 05/15/19 11:05/15/19 11:26 - Physical Exam General Appearance: Yes: Appropriately Dressed. No: Apparent Distress HEENT: positive: Normal Voice Neck: positive: Supple Respiratory/Chest: negative: Respiratory Distress Cardiovascular: positive: Regular Rate, S1, S2 Gastrointestinal/Abdominal: positive: Soft. negative: Tender Rectal Exam: positive: other (light brown stool on rectal exam, guaiac +) Musculoskeletal: negative: CVA Tenderness, Vertebral Tenderness Extremity: positive: Normal Inspection Integumentary: positive: Dry, Warm Neurologic: positive: Fully Oriented, Alert, Normal Mood/Affect ED Treatment Course - LABORATORY CBC & Chemistry Diagram: 05/15/19 12:51 05/15/19 12:51 Medical Decision Making - Medical Decision Making 05/15/19 11:51 58-year-old male, history of diabetes, alcohol abuse, was been at [facility] care today for inpatient detox when pt c/o n/v this am. Also reported abdominal pain and possible black stools. Patient now reports that he is not having abdominal pain but does have chronic L mid back pain. No history of kidney stone and no acute symptoms, fever or chills. Patient reports to me that he has had dark brown stool today, not sure if black. Pt requesting librium at this time. Last alcoholic intake was this am. No dizziness, weakness or tremors at this time. Patient well-appearing and stable with unremarkable exam. Will get labs, give dose of librium. Anticipate transfer back to [facility] for inpt detox 05/15/19 15:13 Guaiac +. Hgb 15, rest of labs unremarkable. Pt remains stable throughout ER visit. I contacted staff at [facility] who states pt can be transferred to them for inpt detox *DC/Admit/Observation/Transfer Diagnosis at time of Disposition: Guaiac + stool Nausea and vomiting Qualifiers: Vomiting type: unspecified Vomiting Intractability: non-intractable Qualified Code(s): R11.2 - Nausea with vomiting, unspecified - Discharge Dispostion Disposition: HOME Condition at time of disposition: Improved - Referrals Referrals: Sharif Garcia [Primary Care Provider] - - Patient Instructions Additional Instructions: Patient's blood work was unremarkable today. His cr was 1.7 with normal potassium. Based on chart review, baseline creatinine is usually 1.5. Patient needs to follow up with his PMD for close monitoring of his creatinine. His hemoglobin was normal at 15. Patient was, however, guaiac positive but no gross black stools. Should be given close GI follow-up Given dose of librium and small dose of valium here - Post Discharge Activity
[2019-05-15 13:23] LABS: BASO % 0.8 % (0-2.0); EOS % 0.1 % (0-4.5); HEMATOCRIT 44.9 % (35.4-49); HEMOGLOBIN 15.3 GM/dL (11.7-16.9); LYMPH % 16.7 % (8-40); MCH 31.5 pg (25.7-33.7); MCHC 34.1 g/dl (32.0-35.9); MEAN CELL VOLUME 92.5 fl (80-96); MEAN PLT VOLUME 7.1 fl (7.5-11.1); MONO % 6.1 % (3.8-10.2); NEUT % 76.3 % (42.8-82.8); PLATELET COUNT 257 K/MM3 (134-434); RBC 4.85 M/mm3 (4.00-5.60); RDW 15.1 % (11.9-15.9); WHITE BLOOD COUNT 8.5 K/mm3 (4.0-10.0)
[2019-05-15 13:36] LABS: EPI CELLS 1.1 /HPF (0-5/HPF); HYALINE CASTS 12 /lpf (0-8); PH,URINE 5.5 (5.0-8.0); URINE APPEARANCE CLOUDY; URINE BACTERIA 2.9 /hpf (NEGATIVE); URINE BILIRUBIN NEGATIVE (NEGATIVE); URINE COLOR YELLOW; URINE GLUCOSE (UA) NEGATIVE (NEGATIVE); URINE KETONE NEGATIVE (NEGATIVE); URINE LEUK ESTERASE NEGATIVE (NEGATIVE); URINE NITRITE NEGATIVE (NEGATIVE); URINE PROTEIN 4+ (NEGATIVE); URINE RBC 1 /hpf (0-4); URINE WBC 0 /hpf (0-5)
[2019-05-15 14:01] LABS: ALBUMIN 3.7 g/dl (3.4-5.0); BILIRUBIN,TOTAL 0.4 mg/dL (0.2-1); BLOOD UREA NITROGEN 21.4 mg/dL (7-18); CALCIUM 8.6 mg/dL (8.5-10.1); CREATININE 1.7 mg/dL (0.55-1.3); POTASSIUM 4.1 mmol/L (3.5-5.1); TOT PROT 6.8 g/dl (6.4-8.2)
[2019-05-15] MEDS ORDERED: diazePAM 5 MG TABLET PO ONE (14:32)
[2019-05-15] MEDS ORDERED: diazePAM 5 MG TABLET ONE (15:03)
[2019-05-15 15:32] VITALS: BP 145/90; PULSE 90
[2019-05-15] MEDS ORDERED: MELATONIN 5 MG TABLETS PO PRN (16:20)
[2019-05-15] MEDS ORDERED: MENTHOL/PHENOL 1 EACH UD MM PRN (16:20)
[2019-05-15] MEDS ORDERED: MAG HYDROX/AL HYDROX/SIMETH 30 ML UNIT-DOSE CUP PO PRN (16:20)
[2019-05-15] MEDS ORDERED: hydrOXYzine PAMOATE 25 MG CAPSULE (FP) PO PRN (16:20)
[2019-05-15] MEDS ORDERED: MAGNESIUM HYDROX 2400MG/30ML ORAL SUSPENSION 30 ML CUP PO PRN (16:20)
[2019-05-15] MEDS ORDERED: ACETAMINOPHEN 325 MG TABLET (FP) PO PRN ×2 (16:20)
[2019-05-15] MEDS ORDERED: NICOTINE POLACRILEX 2 MG GUM BUC PRN (16:20)
[2019-05-15] MEDS ORDERED: ONDANSETRON *ODT* 4 MG TABLET SL PRN (16:20)
[2019-05-15] MEDS ORDERED: IBUPROFEN 400 MG TABLET (FP) PO PRN (16:20)
[2019-05-15] MEDS ORDERED: BISMUTH SUBSALICYLATE 524 MG/30 ML UD PO PRN (16:20)
[2019-05-15] MEDS ORDERED: METHOCARBAMOL 500 MG TABLET PO PRN (16:20)
[2019-05-15] MEDS ORDERED: chlordiazePOXIDE HCL 25 MG CAPSULE PO PRN (16:20)
[2019-05-15] MEDS ORDERED: MAGNESIUM CITRATE 300 ML BOTTLE PO PRN (16:20)
[2019-05-15] MEDS ORDERED: amLODIPine BESYLATE 5 MG TABLET (FP) PO ONE (16:46)
[2019-05-15] MEDS ORDERED: LOSARTAN POTASSIUM 50 MG TABLET (FP) PO ONE (16:48)
--- NOTE | 2019-05-15 16:51 | HP ---
CIWA Score Nausea/Vomitin Muscle Tremors: 4-Moderate,w/Arms Extend Anxiety: 4-Mod. Anxious/Guarded Agitation: 4-Moderately Restless Paroxysmal Sweats: 2 Orientation: 0-Oriented Tacttile Disturbances: 0-None Auditory Disturbances: 0-None Visual Disturbances: 0-None Headache: 2-Mild CIWA-Ar Total Score: 21 - Admission Criteria OASAS Guidelines: Admission for Medically Managed Detox: Requires at least one of the followin. CIWA greater than 12 2. Seizures within the past 24 hours 3. Delirium tremens within the past 24 hours 4. Hallucinations within the past 24 hours 5. Acute intervention needed for co occurring medical disorder 6. Acute intervention needed for co occurring psychiatric disorder 7. Severe withdrawal that cannot be handled at a lower level of care (continued vomiting, continued diarrhea, abnormal vital signs) requiring intravenous medication and/or fluids 8. Admission ROS S - HPI Allergies/Adverse Reactions: Allergies Allergy/AdvReac Type Severity Reaction Status Date / Time Iodine and Iodide Containing Allergy Verified 05/15/19 11:26 Produc Patient History - Patient Medical History Hx Anemia: No Hx Asthma: No Hx Chronic Obstructive Pulmonary Disease (COPD): No Hx Cancer: No Hx Cardiac Disorders: No Hx Congestive Heart Failure: No Hx Hypertension: Yes Hx Hypercholesterolemia: Yes (TRIGLYCERIDES) Hx Pacemaker: No HX Cerebrovascular Accident: No Hx Seizures: No Hx Dementia: No Hx Diabetes: Yes (TYPE II) Hx Gastrointestinal Disorders: Yes (GERD NO MEDS) Hx Liver Disease: No Hx Genitourinary Disorders: No Hx Sexually Transmitted Disorders: No Hx Renal Disease (ESRD): No Hx Thyroid Disease: No Hx Human Immunodeficiency Virus (HIV): No Hx Hepatitis C: No Hx Depression: Yes Hx Suicide Attempt: No Hx Bipolar Disorder: No Hx Schizophrenia: No - Patient Surgical History Past Surgical History: Yes Hx Abdominal Surgery: Yes (EXPLORATORY LAP. TO REMOVE FOREIGN BODY) - PPD History Date: 10/02/16 - Smoking Cessation Smoking history: Unknown if ever smoked Have you smoked in the past 12 months: No Aproximately how many cigarettes per day: 10 Hx Chewing Tobacco Use: No Initiated information on smoking cessation: No - Substances abused Alcohol Substance route: Oral Frequency: Daily Amount used: 1 six pack, 1-2 liters gin Age of first use: 20 Date of last use: 05/15/19 Family Disease History - Family Disease History Family Disease History: Heart Disease: Mother (HTN), Other: Father () Admission Physical Exam [facility] - Vital Signs Vital Signs: Vital Signs - 24 hr 05/15/19 05/15/19 11:26 15:30 Temperature 99.1 F Pulse Rate 92 H Pulse Rate [ 90 Right] Respiratory 16 16 Rate Blood Pressure 165/90 Blood Pressure 145/90 [Right Arm] O2 Sat by Pulse 100 98 Oximetry (%) Breathalyzer - Breathalyzer Breathalyzer: 0.170 Urine Drug Screen - Test Device Lot number: [id number] Expiration date: 02/23/21 - Control Is test valid?: Yes - Results Drug screen NEGATIVE: No Urine drug screen results: BZO-Benzodiazepines
[2019-05-15] MEDS ORDERED: chlordiazePOXIDE HCL 25 MG CAPSULE PO SCH (17:00)
[2019-05-15] MEDS ORDERED: THIAMINE HCL 100 MG TABLET (FP) PO SCH (22:00)
[2019-05-15] MEDS ORDERED: ATORVASTATIN CA 40 MG TABLET (FP) PO SCH (22:00)
[2019-05-15] MEDS ORDERED: CILOSTAZOL 50 MG TABLET (FP) PO SCH (22:00)
[2019-05-15] MEDS ORDERED: GABAPENTIN 100 MG CAPSULE (FP) PO SCH (22:00)
[2019-05-16] MEDS ORDERED: INSULIN SLIDING SCALE (NOVOLOG) 1 VIAL SQ SCH (07:00)
[2019-05-16] MEDS ORDERED: PRENATAL VITAMINS W/ FOLIC ACID TABLET (FP) PO SCH (10:00)
[2019-05-16] MEDS ORDERED: CLOPIDOGREL BISULFATE 75 MG TABLET (FP) PO SCH (10:00)
[2019-05-16] MEDS ORDERED: GEMFIBROZIL 600 MG TABLET (FP) PO SCH (10:00)
[2019-05-16] MEDS ORDERED: LOSARTAN POTASSIUM 50 MG TABLET (FP) PO SCH (10:00)
[2019-05-16] MEDS ORDERED: amLODIPine BESYLATE 10 MG TABLET (FP) PO SCH (10:00)
[2019-05-17] MEDS ORDERED: chlordiazePOXIDE HCL 25 MG CAPSULE PO SCH (05:00)
[2019-05-18] MEDS ORDERED: chlordiazePOXIDE HCL 10 MG CAPSULE PO PRN
[2019-05-18] MEDS ORDERED: chlordiazePOXIDE HCL 10 MG CAPSULE PO SCH (05:00)
[2019-05-19] MEDS ORDERED: chlordiazePOXIDE HCL 10 MG CAPSULE PO SCH (05:00)
[2019-05-20] MEDS ORDERED: chlordiazePOXIDE HCL 10 MG CAPSULE PO ONE (05:00)
== END 2019-05-15 15:32 | disposition home or self-care (01) ==
LOC: JER 11:24
DX: R11.2 Nausea with vomiting, unspecified (principal); E11.9 Type 2 diabetes mellitus without complications; F10.10 Alcohol abuse, uncomplicated; I10 Essential (primary) hypertension; K21.9 Gastro-esophageal reflux disease without esophagitis
CPT/HCPCS: 36415; 80053; 81003; 82272; 83690; 85025; 99282-25

== ENCOUNTER 2019-06-13 10:55 | Inpatient (IN) | payer OTHER ==
[2019-06-13 11:16] VITALS: BMI 22.3
--- NOTE | 2019-06-13 11:45 | HP ---
CIWA Score Nausea/Vomitin Muscle Tremors: 4-Moderate,w/Arms Extend Anxiety: 3 Agitation: 3 Paroxysmal Sweats: 4-Forehead w/Sweat Beads Orientation: 1-Uncertain about Date Tacttile Disturbances: 0-None Auditory Disturbances: 0-None Visual Disturbances: 0-None Headache: 4-Moderately Severe CIWA-Ar Total Score: 22 - Admission Criteria OASAS Guidelines: Admission for Medically Managed Detox: Requires at least one of the followin. CIWA greater than 12 2. Seizures within the past 24 hours 3. Delirium tremens within the past 24 hours 4. Hallucinations within the past 24 hours 5. Acute intervention needed for co occurring medical disorder 6. Acute intervention needed for co occurring psychiatric disorder 7. Severe withdrawal that cannot be handled at a lower level of care (continued vomiting, continued diarrhea, abnormal vital signs) requiring intravenous medication and/or fluids 8. Admission ROS [facility] Chief Complaint: "I'm an alcoholic and when I left detox I started drinking right away." Allergies/Adverse Reactions: Allergies Allergy/AdvReac Type Severity Reaction Status Date / Time Iodine and Iodide Containing Allergy Verified 06/13/19 11:02 Produc History of Present Illness: 58 year old male with alcohol dependence. He is now us drinking 1 12 pack of beer per day, last drank this morning. He denies blackout but is heavily drinking and feels unstable when he drinks. Patient denies seizures from withdrawals because he hasn't stopped long enough to have any seizures. PMH: DM , HTN, Hyerlipidemia, GERD Gallbladder disease PSurg Hx: Exploratory abdomen for foreign body Exam Limitations: No Limitations - Ebola screening Have you traveled outside of the country in the last 21 days: No Have you had contact with anyone from an Ebola affected area: No Have you been sick,other than usual withdrawal symptoms: No Do you have a fever: No - Review of Systems Constitutional: Chills, Diaphoresis EENT: reports: No Symptoms Reported Respiratory: reports: Cough, Orthopnea, Shortness of Breath, SOB with Exertion Cardiac: reports: No Symptoms Reported GI: reports: No Symptoms Reported, Abdominal Distended : reports: No Symptoms Reported Musculoskeletal: reports: No Symptoms Reported Integumentary: reports: No Symptoms Reported Neuro: reports: No Symptoms reported Endocrine: reports: No Symptoms Reported Hematology: reports: No Symptoms Reported Psychiatric: reports: Judgement Intact, Mood/Affect Appropiate, Orientated x3 Other Systems: Reviewed and Negative Patient History - Patient Medical History Hx Anemia: No Hx Asthma: No Hx Chronic Obstructive Pulmonary Disease (COPD): No Hx Cancer: No Hx Cardiac Disorders: No Hx Congestive Heart Failure: No Hx Hypertension: Yes Hx Hypercholesterolemia: Yes (TRIGLYCERIDES) Hx Pacemaker: No HX Cerebrovascular Accident: No Hx Seizures: No Hx Dementia: No Hx Diabetes: Yes (TYPE II) Hx Gastrointestinal Disorders: Yes (GERD NO MEDS) Hx Liver Disease: No Hx Genitourinary Disorders: No Hx Sexually Transmitted Disorders: No Hx Renal Disease (ESRD): No Hx Thyroid Disease: No Hx Human Immunodeficiency Virus (HIV): No Hx Hepatitis C: No Hx Depression: Yes Hx Suicide Attempt: No Hx Bipolar Disorder: No Hx Schizophrenia: No - Patient Surgical History Past Surgical History: Yes Hx Neurologic Surgery: No Hx Cataract Extraction: No Hx Cardiac Surgery: No Hx Lung Surgery: No Hx Breast Surgery: No Hx Breast Biopsy: No Hx Abdominal Surgery: Yes (EXPLORATORY LAP. TO REMOVE FOREIGN BODY) Hx Appendectomy: No Hx Cholecystectomy: No Hx Genitourinary Surgery: No Hx Section: No Hx Orthopedic Surgery: No Hx Hysterectomy: No Anesthesia Reaction: No - PPD History Previous Implant?: Yes Documented Results: Negative w/proof Implanted On Prior [facility] Admission?: Yes Date: 05/15/19 Results: 00 PPD to be Administered?: No - Reproductive History Patient is a Female of Child Bearing Age (11 -55 yrs old): No - Smoking Cessation Smoking history: Unknown if ever smoked Have you smoked in the past 12 months: No Aproximately how many cigarettes per day: 10 Hx Chewing Tobacco Use: No Initiated information on smoking cessation: Yes 'Breaking Loose' booklet given: 06/13/19 - Substance & Tx. History Hx Alcohol Use: Yes (1 pint of vodka per day) Hx Substance Use: Yes Substance Use Type: Alcohol - Substances abused Alcohol Substance route: Oral Frequency: Daily Amount used: 1 12 pack beer, 1 pint gin Age of first use: 20 Date of last use: 06/13/19 Family Disease History - Family Disease History Family Disease History: Heart Disease: Mother (HTN), Other: Father () Admission Physical Exam [facility] - Vital Signs Vital Signs: Vital Signs - 24 hr 06/13/19 11:11 Temperature 98.4 F Pulse Rate 82 Respiratory 20 Rate Blood Pressure 155/85 - Physical General Appearance: Yes: Moderate Distress, Alcohol on Breath, Intoxicated HEENTM: Yes: EOMI, Hearing grossly Normal, Normal ENT Inspection, Normocephalic , Normal Voice, AMARJIT, Pharynx Normal, Tm's normal Respiratory: Yes: Chest Non-Tender, Lungs Clear, No Respiratory Distress, No Accessory Muscle Use Neck: Yes: No masses,lesions,Nodules, Supple, Trachea in good position Breast: Yes: Within Normal Limits Cardiology: Yes: Regular Rhythm, Regular Rate, S1, S2 Abdominal: Yes: Normal Bowel Sounds, Non Tender, Soft, Protuberent Genitourinary: Yes: Within Normal Limits Back: Yes: Normal Inspection Musculoskeletal: Yes: Within Normal Limits, full range of Motion, Other ( unsteady with gait) Extremities: Yes: Normal Capillary Refill, Normal Inspection Neurological: Yes: small kick press operator II-XII NML intact, Fully Oriented, Alert, Motor Strength 5/5 Integumentary: Yes: Normal Color, Warm Lymphatic: Yes: Within Normal Limits - Diagnostic (1) Alcohol dependence with uncomplicated withdrawal Current Visit: Yes Status: Acute (2) Alcohol-induced mood disorder Current Visit: Yes Status: Acute (3) Azotemia Current Visit: Yes Status: Acute (4) HLD (hyperlipidemia) Current Visit: Yes Status: Chronic (5) HTN (hypertension) Current Visit: Yes Status: Chronic Qualifiers: Hypertension type: essential hypertension Qualified Code(s): I10 - Essential (primary) hypertension (6) Nicotine dependence Current Visit: Yes Status: Chronic Qualifiers: Nicotine product type: cigarettes Substance use status: uncomplicated Qualified Code(s): F17.210 - Nicotine dependence, cigarettes, uncomplicated (7) Type 2 diabetes mellitus Current Visit: Yes Status: Chronic Cleared for Admission [facility] - Detox or Rehab [facility] Level of Care: Medically Managed Detox Regimen/Protocol: Librium Screened but not Admitted - Documentation of Visit Screened but not Admitted: No Breathalyzer - Breathalyzer Breathalyzer: 0.170 Vital Signs - Vital Signs Vital signs refused: No Temperature: 98.4 F Temperature source: Oral Pulse Rate: 82 Respiratory Rate: 20 Blood Pressure: 155/85 BP Location: Left Arm Blood Pressure position: Sitting - Height Height: 5 ft 4 in - Weight Weight: 130 lb Weight measurement method: Standing scale - BMI Body Mass Index (BMI): 22.3 - Bowel Function Bowel Movement: Yes Urine Drug Screen - Test Device Lot number: [id number] Expiration date: 02/23/21 - Control Is test valid?: Yes - Results Drug screen NEGATIVE: No Urine drug screen results: BZO-Benzodiazepines Inpatient Rehab Admission - Rehab Decision to Admit Inpatient rehab admission?: No
[2019-06-13] MEDS ORDERED: ACETAMINOPHEN 325 MG TABLET (FP) PO PRN ×2 (11:58)
[2019-06-13] MEDS ORDERED: MAGNESIUM CITRATE 300 ML BOTTLE PO PRN (11:58)
[2019-06-13] MEDS ORDERED: hydrOXYzine PAMOATE 25 MG CAPSULE (FP) PO PRN (11:58)
[2019-06-13] MEDS ORDERED: MAGNESIUM HYDROX 2400MG/30ML ORAL SUSPENSION 30 ML CUP PO PRN (11:58)
[2019-06-13] MEDS ORDERED: IBUPROFEN 400 MG TABLET (FP) PO PRN (11:58)
[2019-06-13] MEDS ORDERED: BISMUTH SUBSALICYLATE 524 MG/30 ML UD PO PRN (11:58)
[2019-06-13] MEDS ORDERED: MENTHOL/PHENOL 1 EACH UD MM PRN (11:58)
[2019-06-13] MEDS: ASPIRIN 81 MG CHEWABLE TABLETS PO SCH (12:36)
[2019-06-13] MEDS: amLODIPine BESYLATE 10 MG TABLET (FP) PO SCH (12:37)
[2019-06-13] MEDS: chlordiazePOXIDE HCL 25 MG CAPSULE PO PRN ×2 (12:42→18:32)
[2019-06-13] MEDS: METHOCARBAMOL 500 MG TABLET PO PRN (13:29)
--- NOTE | 2019-06-13 14:32 | PN ---
[facility] Progress Note Note: pt appeared very shaky and sweating. pt verbalized he wasn't feeling well. librium 50mg x one
[2019-06-13 14:33] LABS: HEMATOCRIT 48.7 % (35.4-49); HEMOGLOBIN 16.3 GM/dL (11.7-16.9); MCH 31.5 pg (25.7-33.7); MCHC 33.5 g/dl (32.0-35.9); MEAN PLT VOLUME 7.9 fl (7.5-11.1); PLATELET COUNT 239 K/MM3 (134-434); RBC 5.18 M/mm3 (4.00-5.60); RDW 14.6 % (11.9-15.9); WHITE BLOOD COUNT 6.2 K/mm3 (4.0-10.0)
[2019-06-13 14:43] LABS: ALBUMIN 3.7 g/dl (3.4-5.0); BILIRUBIN,TOTAL 0.2 mg/dL (0.2-1); BLOOD UREA NITROGEN 16.6 mg/dL (7-18); CALCIUM 8.6 mg/dL (8.5-10.1); CREATININE 1.5 mg/dL (0.55-1.3); POTASSIUM 4.1 mmol/L (3.5-5.1); TOT PROT 6.9 g/dl (6.4-8.2)
[2019-06-13] MEDS ORDERED: chlordiazePOXIDE HCL 25 MG CAPSULE PO ONE ×2 (14:45→15:30)
[2019-06-13] MEDS: ONDANSETRON *ODT* 4 MG TABLET SL PRN (15:46)
[2019-06-13] MEDS: chlordiazePOXIDE HCL 25 MG CAPSULE PO SCH ×2 (16:45→22:07)
[2019-06-13] MEDS: INSULIN SLIDING SCALE (NOVOLOG) 1 VIAL SQ SCH ×2 (16:45→22:01)
[2019-06-13] MEDS ORDERED: CILOSTAZOL 100 MG TABLET PO SCH (22:00)
[2019-06-13] MEDS ORDERED: GABAPENTIN 300 MG CAPSULE (FP) PO SCH (22:00)
[2019-06-13] MEDS: THIAMINE HCL 100 MG TABLET (FP) PO SCH (22:02)
[2019-06-13] MEDS: ATORVASTATIN CA 40 MG TABLET (FP) PO SCH (22:07)
[2019-06-13] MEDS: INSULIN (LEVEMIR) 100 UNITS/ML UNITS SQ SCH (23:15)
[2019-06-14] MEDS: chlordiazePOXIDE HCL 25 MG CAPSULE PO SCH ×4 (05:20→22:28)
[2019-06-14] MEDS: INSULIN SLIDING SCALE (NOVOLOG) 1 VIAL SQ SCH ×4 (06:10→22:28)
[2019-06-14] MEDS ORDERED: PATIENT'S OWN MEDICATION (NON-FORMULARY) (Insulin Glargine,Hum.Rec.Anlog [Basaglar Kwikpen SQ SCH (10:00)
[2019-06-14] MEDS: amLODIPine BESYLATE 10 MG TABLET (FP) PO SCH (10:25)
[2019-06-14] MEDS: GABAPENTIN 100 MG CAPSULE (FP) PO SCH ×2 (10:25→22:30)
[2019-06-14] MEDS: CLOPIDOGREL BISULFATE 75 MG TABLET (FP) PO SCH (10:25)
[2019-06-14] MEDS: LOSARTAN POTASSIUM 50 MG TABLET (FP) PO SCH (10:26)
[2019-06-14] MEDS: ASPIRIN 81 MG CHEWABLE TABLETS PO SCH (10:26)
[2019-06-14] MEDS: PRENATAL VITAMINS W/ FOLIC ACID TABLET (FP) PO SCH (10:27)
[2019-06-14] MEDS: METHOCARBAMOL 500 MG TABLET PO PRN ×2 (11:11→17:29)
[2019-06-14] MEDS: INSULIN (LEVEMIR) 100 UNITS/ML UNITS SQ SCH ×2 (11:20→22:30)
--- NOTE | 2019-06-14 12:00 | PN ---
S CIWA - CIWA Score Nausea/Vomitin-Mild Nausea/No Vomiting Muscle Tremors: 4-Moderate,w/Arms Extend Anxiety: 4-Mod. Anxious/Guarded Agitation: 4-Moderately Restless Paroxysmal Sweats: 3 Orientation: 0-Oriented Tacttile Disturbances: 0-None Auditory Disturbances: 0-None Visual Disturbances: 0-None Headache: 0-None Present CIWA-Ar Total Score: 16 BHS Progress Note (SOAP) Subjective: sweats shakes interrupted sleep body aches nausea Objective: 06/14/19 11:59 Vital Signs Temperature 97.5 F L 06/14/19 09:09 Pulse Rate 74 06/14/19 09:09 Respiratory Rate 16 06/14/19 09:09 Blood Pressure 165/84 06/14/19 09:09 O2 Sat by Pulse Oximetry (%) Laboratory Tests 06/13/19 06/13/19 06/13/19 12:04 12:10 12:10 WBC 6.2 RBC 5.18 Hgb 16.3 Hct 48.7 MCV 94.0 MCH 31.5 MCHC 33.5 RDW 14.6 Plt Count 239 MPV 7.9 D Sodium 141 Potassium 4.1 Chloride 108 H Carbon Dioxide 27 Anion Gap 7 L BUN 16.6 Creatinine 1.5 H Est GFR (CKD-EPI)AfAm 59.46 Est GFR (CKD-EPI)NonAf 51.30 POC Glucometer 241 Random Glucose 237 H Calcium 8.6 Total Bilirubin 0.2 AST 39 H ALT 39 Alkaline Phosphatase 77 Total Protein 6.9 Albumin 3.7 RPR Titer HIV 1&2 Antibody Screen HIV P24 Antigen 06/13/19 06/13/19 06/13/19 12:10 13:00 16:36 WBC RBC Hgb Hct MCV MCH MCHC RDW Plt Count MPV Sodium Potassium Chloride Carbon Dioxide Anion Gap BUN Creatinine Est GFR (CKD-EPI)AfAm Est GFR (CKD-EPI)NonAf POC Glucometer 182 Random Glucose Calcium Total Bilirubin AST ALT Alkaline Phosphatase Total Protein Albumin RPR Titer Nonreactive HIV 1&2 Antibody Screen Negative HIV P24 Antigen Negative 06/13/19 06/14/19 21:59 05:21 WBC RBC Hgb Hct MCV MCH MCHC RDW Plt Count MPV Sodium Potassium Chloride Carbon Dioxide Anion Gap BUN Creatinine Est GFR (CKD-EPI)AfAm Est GFR (CKD-EPI)NonAf POC Glucometer 144 72 Random Glucose Calcium Total Bilirubin AST ALT Alkaline Phosphatase Total Protein Albumin RPR Titer HIV 1&2 Antibody Screen HIV P24 Antigen labs noted aaox3 ambulating no acute distress Assessment: 06/14/19 11:59 withdrawals sx Plan: continue detox increase fluids zofran prn motrin prn
[2019-06-14] MEDS: ONDANSETRON *ODT* 4 MG TABLET SL PRN (14:23)
[2019-06-14] MEDS: chlordiazePOXIDE HCL 25 MG CAPSULE PO PRN (14:49)
[2019-06-14] MEDS: THIAMINE HCL 100 MG TABLET (FP) PO SCH (22:28)
[2019-06-14] MEDS: ATORVASTATIN CA 40 MG TABLET (FP) PO SCH (22:30)
[2019-06-14] MEDS: MELATONIN 5 MG TABLETS PO PRN (22:33)
[2019-06-15] MEDS: chlordiazePOXIDE HCL 25 MG CAPSULE PO SCH ×4 (05:49→22:10)
[2019-06-15] MEDS: METHOCARBAMOL 500 MG TABLET PO PRN ×3 (06:54→19:34)
[2019-06-15] MEDS: INSULIN SLIDING SCALE (NOVOLOG) 1 VIAL SQ SCH ×4 (08:14→21:12)
[2019-06-15] MEDS: INSULIN (LEVEMIR) 100 UNITS/ML UNITS SQ SCH ×2 (09:14→21:16)
[2019-06-15] MEDS: LOSARTAN POTASSIUM 50 MG TABLET (FP) PO SCH (10:17)
[2019-06-15] MEDS: amLODIPine BESYLATE 10 MG TABLET (FP) PO SCH (10:17)
[2019-06-15] MEDS: CLOPIDOGREL BISULFATE 75 MG TABLET (FP) PO SCH (10:18)
[2019-06-15] MEDS: ASPIRIN 81 MG CHEWABLE TABLETS PO SCH (10:18)
[2019-06-15] MEDS: PRENATAL VITAMINS W/ FOLIC ACID TABLET (FP) PO SCH (10:18)
[2019-06-15] MEDS: GABAPENTIN 100 MG CAPSULE (FP) PO SCH ×2 (10:18→21:13)
--- NOTE | 2019-06-15 10:32 | PN ---
S CIWA - CIWA Score Nausea/Vomitin Muscle Tremors: 2 Anxiety: 2 Agitation: 2 Paroxysmal Sweats: No Perspiration Orientation: 0-Oriented Tacttile Disturbances: 1-Very Mild Itch/Numbness Auditory Disturbances: 0-None Visual Disturbances: 0-None Headache: 2-Mild CIWA-Ar Total Score: 11 S Progress Note (SOAP) Subjective: alert,irritable,anxious,interrupted sleep,tremor Objective: 06/15/19 10:24 Vital Signs Temperature 98.9 F 06/15/19 09:38 Pulse Rate 74 06/15/19 09:38 Respiratory Rate 18 06/15/19 09:38 Blood Pressure 126/76 06/15/19 09:38 O2 Sat by Pulse Oximetry (%) Laboratory Last Values WBC 6.2 K/mm3 (4.0-10.0) 06/13/19 12:10 RBC 5.18 M/mm3 (4.00-5.60) 06/13/19 12:10 Hgb 16.3 GM/dL (11.7-16.9) 06/13/19 12:10 Hct 48.7 % (35.4-49) 06/13/19 12:10 MCV 94.0 fl (80-96) 06/13/19 12:10 MCH 31.5 pg (25.7-33.7) 06/13/19 12:10 MCHC 33.5 g/dl (32.0-35.9) 06/13/19 12:10 RDW 14.6 % (11.9-15.9) 06/13/19 12:10 Plt Count 239 K/MM3 (134-434) 06/13/19 12:10 MPV 7.9 fl (7.5-11.1) D 06/13/19 12:10 Sodium 141 mmol/L (136-145) 06/13/19 12:10 Potassium 4.1 mmol/L (3.5-5.1) 06/13/19 12:10 Chloride 108 mmol/L (98-107) H 06/13/19 12:10 Carbon Dioxide 27 mmol/L (21-32) 06/13/19 12:10 Anion Gap 7 MMOL/L (8-16) L 06/13/19 12:10 BUN 16.6 mg/dL (7-18) 06/13/19 12:10 Creatinine 1.5 mg/dL (0.55-1.3) H 06/13/19 12:10 Est GFR (CKD-EPI)AfAm 59.46 06/13/19 12:10 Est GFR (CKD-EPI)NonAf 51.30 06/13/19 12:10 POC Glucometer 84 UNITS (80-120) 06/15/19 05:48 Random Glucose 237 mg/dL (74-106) H 06/13/19 12:10 Calcium 8.6 mg/dL (8.5-10.1) 06/13/19 12:10 Total Bilirubin 0.2 mg/dL (0.2-1) 06/13/19 12:10 AST 39 U/L (15-37) H 06/13/19 12:10 ALT 39 U/L (13-61) 06/13/19 12:10 Alkaline Phosphatase 77 U/L (45-117) 06/13/19 12:10 Total Protein 6.9 g/dl (6.4-8.2) 06/13/19 12:10 Albumin 3.7 g/dl (3.4-5.0) 06/13/19 12:10 RPR Titer Nonreactive (NONREACTIVE) 06/13/19 12:10 HIV 1&2 Antibody Screen Negative 06/13/19 13:00 HIV P24 Antigen Negative 06/13/19 13:00
--- NOTE | 2019-06-15 10:33 | CONSULT ---
[facility] Psychiatric Consult - Data Date of interview: 06/15/19 Admission source: [facility] Identifying data: Patient is a 58 year old salvadorian male, father of two, domiciled, and currently employed. This is one of multiple admissions for patient. Patient admitted to for alcohol dependence. Substance Abuse History: - Smoking Cessation. Smoking history: Unknown if ever smoked. Have you smoked in the past 12 months: No. Aproximately how many cigarettes per day: 10. Hx Chewing Tobacco Use: No. Initiated information on smoking cessation: Yes. 'Breaking Loose' booklet given: 06/13/19. - Substance & Tx. History. Hx Alcohol Use: Yes (1 pint of vodka per day). Hx Substance Use : Yes. Substance Use Type: Alcohol. - Substances abused. Alcohol. Substance route: Oral. Frequency: Daily. Amount used: 1 12 pack beer, 1 pint gin. Age of first use: 20. Date of last use: 06/13/19 Medical History: Hypercholesterolemia, diabetes, Gerd, Exploratory Lap. to remove foreign body Psychiatric History: Patient denies history of psychiatric hospitalizations, outpatient care and suicide attempt. Mr. Lenz has been receiving lexapro 20mg from his primary care physican Dr. Lamas for approximately 7-8 years. Patient reports past history of depression which has resolved with lexapro. At present patient reports anxiety and is contemplating leaving detox early due to missing his family. Patient encouraged to complete detox. Physical/Sexual Abuse/Trauma History: denies. Mental Status Exam - Mental Status Exam Alert and Oriented to: Time, Place, Person Cognitive Function: Good Patient Appearance: Well Groomed Mood: Sad (misses his family) Affect: Mood Congruent Patient Behavior: Cooperative Speech Pattern: Appropriate Voice Loudness: Normal Thought Process: Goal Oriented Thought Disorder: Not Present Hallucinations: Denies Suicidal Ideation: Denies Homicidal Ideation: Denies Insight/Judgement: Poor Sleep: Fair Appetite: Fair Muscle strength/Tone: Normal Gait/Station: Normal Psychiatric Findings - Problem List ([place] 1, 2,3) (1) History of depression Current Visit: Yes Status: Chronic (2) Alcohol dependence with uncomplicated withdrawal Current Visit: Yes Status: Acute (3) Alcohol-induced mood disorder Current Visit: Yes Status: Acute - Initial Treatment Plan Initial Treatment Plan: Psychoeducation provided. Detoxification in progress. Will order Lexapro 20mg daily. Benefits and side effects discussed. Verbal consent given.
[2019-06-15] MEDS: ESCITALOPRAM OXALATE 20 MG TABLET (FP) PO SCH (11:26)
[2019-06-15] MEDS: ATORVASTATIN CA 40 MG TABLET (FP) PO SCH (21:13)
[2019-06-15] MEDS: MELATONIN 5 MG TABLETS PO PRN (21:13)
[2019-06-15] MEDS: THIAMINE HCL 100 MG TABLET (FP) PO SCH (21:15)
[2019-06-16] MEDS ORDERED: chlordiazePOXIDE HCL 10 MG CAPSULE PO PRN
[2019-06-16] MEDS: chlordiazePOXIDE HCL 10 MG CAPSULE PO SCH ×4 (06:33→22:30)
[2019-06-16] MEDS: METHOCARBAMOL 500 MG TABLET PO PRN ×2 (07:01→19:35)
[2019-06-16] MEDS: INSULIN SLIDING SCALE (NOVOLOG) 1 VIAL SQ SCH ×4 (07:39→22:32)
[2019-06-16] MEDS: PRENATAL VITAMINS W/ FOLIC ACID TABLET (FP) PO SCH (10:34)
[2019-06-16] MEDS: LOSARTAN POTASSIUM 50 MG TABLET (FP) PO SCH (10:35)
[2019-06-16] MEDS: INSULIN (LEVEMIR) 100 UNITS/ML UNITS SQ SCH ×2 (10:35→22:32)
--- NOTE | 2019-06-16 10:40 | PN ---
S CIWA - CIWA Score Nausea/Vomitin-No Nausea/No Vomiting Muscle Tremors: None Anxiety: 3 Agitation: 0-Normal Activity Paroxysmal Sweats: 3 Orientation: 0-Oriented Tacttile Disturbances: 0-None Auditory Disturbances: 0-None Visual Disturbances: 0-None Headache: 2-Mild CIWA-Ar Total Score: 8 BHS Progress Note (SOAP) Subjective: c/o headache, sweats, and anxiety. Objective: 06/16/19 10:39 Vital Signs 06/16/19 06/16/19 06/16/19 03:30 06:00 09:33 Temperature 96.3 F L 97.7 F Pulse Rate 71 78 Respiratory 18 16 18 Rate Blood Pressure 133/76 146/85 Lab Results WBC 6.2 K/mm3 (4.0-10.0) 06/13/19 12:10 RBC 5.18 M/mm3 (4.00-5.60) 06/13/19 12:10 Hgb 16.3 GM/dL (11.7-16.9) 06/13/19 12:10 Hct 48.7 % (35.4-49) 06/13/19 12:10 MCV 94.0 fl (80-96) 06/13/19 12:10 MCHC 33.5 g/dl (32.0-35.9) 06/13/19 12:10 RDW 14.6 % (11.9-15.9) 06/13/19 12:10 Plt Count 239 K/MM3 (134-434) 06/13/19 12:10 Sodium 141 mmol/L (136-145) 06/13/19 12:10 Potassium 4.1 mmol/L (3.5-5.1) 06/13/19 12:10 Chloride 108 mmol/L (98-107) H 06/13/19 12:10 Carbon Dioxide 27 mmol/L (21-32) 06/13/19 12:10 Anion Gap 7 MMOL/L (8-16) L 06/13/19 12:10 BUN 16.6 mg/dL (7-18) 06/13/19 12:10 Creatinine 1.5 mg/dL (0.55-1.3) H 06/13/19 12:10 Random Glucose 237 mg/dL (74-106) H 06/13/19 12:10 Calcium 8.6 mg/dL (8.5-10.1) 06/13/19 12:10 Labs noted. Assessment: 06/16/19 10:39 AOX3, in no acute distress. Full ROM, ambulating in the unit. Withdrawal symptoms. Plan: continue detox.
[2019-06-16] MEDS: ESCITALOPRAM OXALATE 20 MG TABLET (FP) PO SCH (10:50)
[2019-06-16] MEDS: amLODIPine BESYLATE 10 MG TABLET (FP) PO SCH (10:50)
[2019-06-16] MEDS: CLOPIDOGREL BISULFATE 75 MG TABLET (FP) PO SCH (10:50)
[2019-06-16] MEDS: ASPIRIN 81 MG CHEWABLE TABLETS PO SCH (10:50)
[2019-06-16] MEDS: GABAPENTIN 100 MG CAPSULE (FP) PO SCH ×2 (10:51→22:30)
[2019-06-16] MEDS: ATORVASTATIN CA 40 MG TABLET (FP) PO SCH (22:30)
[2019-06-16] MEDS: THIAMINE HCL 100 MG TABLET (FP) PO SCH (22:30)
[2019-06-16] MEDS ORDERED: INSULIN SLIDING SCALE (NOVOLOG) 1 VIAL SQ ONE (22:32)
[2019-06-16] MEDS: MELATONIN 5 MG TABLETS PO PRN (22:34)
[2019-06-16] MEDS: MAG HYDROX/AL HYDROX/SIMETH 30 ML UNIT-DOSE CUP PO PRN (22:35)
[2019-06-17] MEDS ORDERED: chlordiazePOXIDE HCL 10 MG CAPSULE PO SCH (05:00)
[2019-06-17] MEDS: INSULIN SLIDING SCALE (NOVOLOG) 1 VIAL SQ SCH (06:32)
[2019-06-17] MEDS: MAG HYDROX/AL HYDROX/SIMETH 30 ML UNIT-DOSE CUP PO PRN (07:29)
[2019-06-17 09:31] VITALS: BP 137/80; PULSE 73; TEMP 98.1
[2019-06-17] MEDS: CLOPIDOGREL BISULFATE 75 MG TABLET (FP) PO SCH (10:41)
[2019-06-17] MEDS: GABAPENTIN 100 MG CAPSULE (FP) PO SCH (10:41)
[2019-06-17] MEDS: PRENATAL VITAMINS W/ FOLIC ACID TABLET (FP) PO SCH (10:41)
[2019-06-17] MEDS: LOSARTAN POTASSIUM 50 MG TABLET (FP) PO SCH (10:41)
[2019-06-17] MEDS: ASPIRIN 81 MG CHEWABLE TABLETS PO SCH (10:41)
[2019-06-17] MEDS: ESCITALOPRAM OXALATE 20 MG TABLET (FP) PO SCH (10:41)
[2019-06-17] MEDS: amLODIPine BESYLATE 10 MG TABLET (FP) PO SCH (10:42)
[2019-06-17] MEDS: INSULIN (LEVEMIR) 100 UNITS/ML UNITS SQ SCH (10:44)
--- NOTE | 2019-06-17 12:23 | DS ---
[facility] Detox Discharge Summary Admission Date: 06/13/19 Discharge Date: 06/17/19 - History Present History: Alcohol Dependence Additional Comments: Patient demanded to leave AMA stating he has to work tomorrow. Patient denies any withdrawal symptoms and agreed to regular discharge today. Patient instructed to follow up with his PCP within 1 week and to bring lab results to his PCP, he reports having PCP appt this Tuesday. Car Sander went over lab results with patient in which he reported having kidney problem and that his PCP is working on it. Car Sander went over abnormal lab result include abnormal UA and patient instructed to provide lab results to his PCP at this Tuesday appt. Patient is anxious to leave, stating he has things to do. Patient is stable and discharged in stable condition. Patient stated he has enough medication at home for all his medical problems and doesn't need any Rx. Pertinent Past History: Renal insufficiency DMT2 HTN HLD GERD Gallbladder disease Alcohol dependence Depression Nicotine dependence - Physical Exam Results Vital Signs: Vital Signs Temperature 98.1 F 06/17/19 09:31 Pulse Rate 73 06/17/19 09:31 Respiratory Rate 16 06/17/19 09:31 Blood Pressure 137/80 06/17/19 09:31 O2 Sat by Pulse Oximetry (%) Pertinent Admission Physical Exam Findings: Withdrawal sxs Laboratory Tests 06/13/19 06/13/19 06/13/19 12:04 12:10 12:10 WBC 6.2 RBC 5.18 Hgb 16.3 Hct 48.7 MCV 94.0 MCH 31.5 MCHC 33.5 RDW 14.6 Plt Count 239 MPV 7.9 D Sodium 141 Potassium 4.1 Chloride 108 H Carbon Dioxide 27 Anion Gap 7 L BUN 16.6 Creatinine 1.5 H Est GFR (CKD-EPI)AfAm 59.46 Est GFR (CKD-EPI)NonAf 51.30 POC Glucometer 241 Random Glucose 237 H Calcium 8.6 Total Bilirubin 0.2 AST 39 H ALT 39 Alkaline Phosphatase 77 Total Protein 6.9 Albumin 3.7 RPR Titer HIV 1&2 Antibody Screen HIV P24 Antigen TB (QFT) Incubation TB Test (QFT) Nil TB Test (QFT) Mitogen TB Test (QFT) Antigen TB Test (QFT) TB Positive Criteria 06/13/19 06/13/19 06/13/19 12:10 12:10 13:00 WBC RBC Hgb Hct MCV MCH MCHC RDW Plt Count MPV Sodium Potassium Chloride Carbon Dioxide Anion Gap BUN Creatinine Est GFR (CKD-EPI)AfAm Est GFR (CKD-EPI)NonAf POC Glucometer Random Glucose Calcium Total Bilirubin AST ALT Alkaline Phosphatase Total Protein Albumin RPR Titer Nonreactive HIV 1&2 Antibody Screen Negative HIV P24 Antigen Negative TB (QFT) Incubation TB Test (QFT) Nil 0.12 TB Test (QFT) Mitogen >10.00 TB Test (QFT) Antigen 0.12 TB Test (QFT) Negative TB Positive Criteria 06/13/19 06/13/19 06/14/19 16:36 21:59 05:21 WBC RBC Hgb Hct MCV MCH MCHC RDW Plt Count MPV Sodium Potassium Chloride Carbon Dioxide Anion Gap BUN Creatinine Est GFR (CKD-EPI)AfAm Est GFR (CKD-EPI)NonAf POC Glucometer 182 144 72 Random Glucose Calcium Total Bilirubin AST ALT Alkaline Phosphatase Total Protein Albumin RPR Titer HIV 1&2 Antibody Screen HIV P24 Antigen TB (QFT) Incubation TB Test (QFT) Nil TB Test (QFT) Mitogen TB Test (QFT) Antigen TB Test (QFT) TB Positive Criteria 06/14/19 06/14/19 06/14/19 12:21 16:59 21:29 WBC RBC Hgb Hct MCV MCH MCHC RDW Plt Count MPV Sodium Potassium Chloride Carbon Dioxide Anion Gap BUN Creatinine Est GFR (CKD-EPI)AfAm Est GFR (CKD-EPI)NonAf POC Glucometer 208 129 305 Random Glucose Calcium Total Bilirubin AST ALT Alkaline Phosphatase Total Protein Albumin RPR Titer HIV 1&2 Antibody Screen HIV P24 Antigen TB (QFT) Incubation TB Test (QFT) Nil TB Test (QFT) Mitogen TB Test (QFT) Antigen TB Test (QFT) TB Positive Criteria 06/15/19 06/15/19 06/15/19 05:48 11:20 16:45 WBC RBC Hgb Hct MCV MCH MCHC RDW Plt Count MPV Sodium Potassium Chloride Carbon Dioxide Anion Gap BUN Creatinine Est GFR (CKD-EPI)AfAm Est GFR (CKD-EPI)NonAf POC Glucometer 84 313 260 Random Glucose Calcium Total Bilirubin AST ALT Alkaline Phosphatase Total Protein Albumin RPR Titer HIV 1&2 Antibody Screen HIV P24 Antigen TB (QFT) Incubation TB Test (QFT) Nil TB Test (QFT) Mitogen TB Test (QFT) Antigen TB Test (QFT) TB Positive Criteria 06/15/19 06/16/19 06/16/19 21:05 06:31 11:25 WBC RBC Hgb Hct MCV MCH MCHC RDW Plt Count MPV Sodium Potassium Chloride Carbon Dioxide Anion Gap BUN Creatinine Est GFR (CKD-EPI)AfAm Est GFR (CKD-EPI)NonAf POC Glucometer 241 179 429 Random Glucose Calcium Total Bilirubin AST ALT Alkaline Phosphatase Total Protein Albumin RPR Titer HIV 1&2 Antibody Screen HIV P24 Antigen TB (QFT) Incubation TB Test (QFT) Nil TB Test (QFT) Mitogen TB Test (QFT) Antigen TB Test (QFT) TB Positive Criteria 06/16/19 06/16/19 06/17/19 16:27 21:50 05:41 WBC RBC Hgb Hct MCV MCH MCHC RDW Plt Count MPV Sodium Potassium Chloride Carbon Dioxide Anion Gap BUN Creatinine Est GFR (CKD-EPI)AfAm Est GFR (CKD-EPI)NonAf POC Glucometer 155 317 118 Random Glucose Calcium Total Bilirubin AST ALT Alkaline Phosphatase Total Protein Albumin RPR Titer HIV 1&2 Antibody Screen HIV P24 Antigen TB (QFT) Incubation TB Test (QFT) Nil TB Test (QFT) Mitogen TB Test (QFT) Antigen TB Test (QFT) TB Positive Criteria Labs reviewed: hyperglycemia due to dmt2, creat 1.5, abnormal UA (proteinuria, hematuria) - Treatment Hospital Course: Detox Protocol Followed, Detoxed Safely, Responded well, Discharged Condition Good - Medication Discharge Medications: Ambulatory Orders Amlodipine Besylate [Norvasc -] 10 mg PO DAILY 10/17/14 Cilostazol [Pletal -] 50 mg PO BID 10/17/14 Clopidogrel Bisulfate [Clopidogrel] 75 mg PO DAILY 10/17/14 Insulin Detemir [Levemir Flextouch] 18 unit SQ BID 10/17/14 Aspirin [Children's Aspirin] 81 mg PO DAILY 09/30/16 Atorvastatin Ca [Lipitor] 40 mg PO HS 09/30/16 Cyanocobalamin [Vitamin B12 -] 100 mcg PO DAILY 09/30/16 Folic Acid 1 mg PO DAILY 09/30/16 Losartan Potassium 50 mg PO DAILY 09/30/16 Pyridoxine HCl (B-6) [Vitamin B6] 100 mg PO DAILY 09/30/16 Thiamine HCl [B-1] 100 mg PO DAILY 09/30/16 Escitalopram Oxalate [Lexapro -] 20 mg PO DAILY 05/15/19 Gabapentin [Neurontin -] 100 mg PO BID 05/15/19 Insulin Glargine,Hum.rec.anlog [Basaglar Kwikpen U-100] 70 unit SQ DAILY MDD 30 morning and 40 evening 05/15/19 - Diagnosis (1) GERD (gastroesophageal reflux disease) Status: Chronic (2) Alcohol dependence with uncomplicated withdrawal Status: Acute (3) Depressive disorder Status: Chronic (4) HLD (hyperlipidemia) Status: Chronic (5) HTN (hypertension) Status: Chronic Qualifiers: Hypertension type: essential hypertension Qualified Code(s): I10 - Essential (primary) hypertension (6) Type 2 diabetes mellitus Status: Chronic (7) Gallbladder disease Status: Chronic (8) Renal insufficiency Status: Chronic (9) Nicotine dependence Status: Chronic Qualifiers: Nicotine product type: cigarettes Substance use status: uncomplicated Qualified Code(s): F17.210 - Nicotine dependence, cigarettes, uncomplicated - AMA Did Patient Leave Against Medical Advice: No (Follow up with PCP on Tuesday as scheduled)
[2019-06-18] MEDS ORDERED: chlordiazePOXIDE HCL 10 MG CAPSULE PO ONE (05:00)
== END 2019-06-17 11:00 | disposition home or self-care (01) | DRG 775 ==
LOC: YASAS 10:55 → Y6N 12:04
PROVIDERS: ADMIT Surgery; ATTEND Surgery
PROC: HZ2ZZZZ Detoxification Services for Substance Abuse Treatment (ICD-10-PCS; principal; 2019-06-13)
DX: F10.230 Alcohol dependence with withdrawal, uncomplicated (principal); F17.210 Nicotine dependence, cigarettes, uncomplicated; F10.24 Alcohol dependence with alcohol-induced mood disorder; F32.9 Major depressive disorder, single episode, unspecified; I10 Essential (primary) hypertension; N28.9 Disorder of kidney and ureter, unspecified; E11.9 Type 2 diabetes mellitus without complications; Z79.4 Long term (current) use of insulin; E78.5 Hyperlipidemia, unspecified; K21.9 Gastro-esophageal reflux disease without esophagitis; K82.9 Disease of gallbladder, unspecified; R79.89 Other specified abnormal findings of blood chemistry; Z88.8 Allergy status to other drugs, medicaments and biological substances
CPT/HCPCS: 36415; 80053; 82962; 85027; 86480; 86593; 87389; Q0162

== ENCOUNTER 2019-10-15 13:48 | Inpatient (IN) | payer OTHER ==
--- NOTE | 2019-10-15 15:44 | PN ---
[facility] Progress Note Note: RAPID MEDICAL: Patient is a 58 yo male with hx of alcohol dependence presents for alcohol detox reports was in [facility] ED for alcohol intox, c/o of withdrawal sx when he does not use. Patient denies hx pf seizures, reports hx of blackouts with last episode yesterday. Denies hx of falls. Patient reports hx of HTN, HDL, DM II non-adherent with meds. Psych: depression and anxiety. Meets criteria for admission.
[2019-10-15 16:16] VITALS: BMI 22.6
--- NOTE | 2019-10-15 17:04 | HP ---
CIWA Score Nausea/Vomitin Muscle Tremors: None Anxiety: 2 Agitation: 2 Paroxysmal Sweats: 2 Orientation: 1-Uncertain about Date Tacttile Disturbances: 2-Mild Itch/Numbness/Burn Auditory Disturbances: 0-None Visual Disturbances: 2-Mild Sensitivity Headache: 2-Mild CIWA-Ar Total Score: 15 - Admission Criteria OASAS Guidelines: Admission for Medically Managed Detox: Requires at least one of the followin. CIWA greater than 12 2. Seizures within the past 24 hours 3. Delirium tremens within the past 24 hours 4. Hallucinations within the past 24 hours 5. Acute intervention needed for co occurring medical disorder 6. Acute intervention needed for co occurring psychiatric disorder 7. Severe withdrawal that cannot be handled at a lower level of care (continued vomiting, continued diarrhea, abnormal vital signs) requiring intravenous medication and/or fluids 8. Admitting History and Physical - Smoking History Smoking history: Current every day smoker Have you smoked in the past 12 months: No Aproximately how many cigarettes per day: 10 - Alcohol/Substance Use Hx Alcohol Use: Yes (1 pint of vodka per day) Admission ROS S - HPI Allergies/Adverse Reactions: Allergies Allergy/AdvReac Type Severity Reaction Status Date / Time Iodine and Iodide Containing Allergy Verified 10/15/19 15:54 Produc History of Present Illness: pt here requesting detox from etoh , currently intoxicated , CAPRICE 0.209 per pt Basaglar self- decreased dose from pharmacy reported 30 units q am and 40 units q hs to 6 units bid , d/w onsite phramacist, previously while at this facility pt was on 18 units Levemir , will start 10 units bid w/ coverage. pharmacy verified all rx. Exam Limitations: Clinical Condition, Intoxication - Ebola screening Have you traveled outside of the country in the last 21 days: No (N) Have you had contact with anyone from an Ebola affected area: No Do you have a fever: No - Review of Systems Constitutional: See HPI, Loss of Appetite EENT: reports: No Symptoms Reported Respiratory: reports: No Symptoms reported Cardiac: reports: No Symptoms Reported GI: reports: See HPI, Constipated, Nausea, Poor Appetite : reports: No Symptoms Reported Musculoskeletal: reports: Back Pain, Other (R LE DVT , chronic) Integumentary: reports: No Symptoms Reported Neuro: reports: Headache Endocrine: reports: See HPI Psychiatric: reports: Anxious Patient History - Patient Medical History Hx Anemia: No Hx Asthma: No Hx Chronic Obstructive Pulmonary Disease (COPD): No Hx Cancer: No Hx Cardiac Disorders: No Hx Congestive Heart Failure: No Hx Hypertension: Yes Hx Hypercholesterolemia: Yes (TRIGLYCERIDES) Hx Pacemaker: No HX Cerebrovascular Accident: No Hx Seizures: No Hx Dementia: No Hx Diabetes: Yes Hx Gastrointestinal Disorders: No Hx Liver Disease: No Hx Genitourinary Disorders: No Hx Sexually Transmitted Disorders: No Hx Renal Disease (ESRD): No Hx Thyroid Disease: No Hx Human Immunodeficiency Virus (HIV): No Hx Hepatitis C: No Hx Depression: Yes Hx Suicide Attempt: No Hx Bipolar Disorder: No Hx Schizophrenia: No - Patient Surgical History Past Surgical History: Yes Hx Neurologic Surgery: No Hx Cataract Extraction: No Hx Cardiac Surgery: No Hx Lung Surgery: No Hx Breast Surgery: No Hx Breast Biopsy: No Hx Abdominal Surgery: Yes (EXPLORATORY LAP. TO REMOVE FOREIGN BODY) Hx Appendectomy: No Hx Cholecystectomy: No Hx Genitourinary Surgery: No Hx Section: No Hx Orthopedic Surgery: No Hx Hysterectomy: No Anesthesia Reaction: No - PPD History Previous Implant?: Yes Documented Results: Negative w/proof Implanted On Prior [facility] Admission?: Yes Date: 05/15/19 Results: 00 - Reproductive History Patient : No - Smoking Cessation Smoking history: Current every day smoker Have you smoked in the past 12 months: No Aproximately how many cigarettes per day: 10 Hx Chewing Tobacco Use: No Initiated information on smoking cessation: No - Substances abused Alcohol Substance route: Oral Frequency: Daily Amount used: i liter [place]/12 (24oz) beers Age of first use: 14 Date of last use: 10/15/19 Admission Physical Exam S - Vital Signs Vital Signs: Vital Signs - 24 hr 10/15/19 15:50 Temperature 98.0 F Pulse Rate 82 Respiratory 17 Rate Blood Pressure 181/99 H - Physical General Appearance: Yes: Mild Distress, Intoxicated, Anxious HEENTM: Yes: EOMI, Hearing grossly Normal, Normocephalic, Normal Voice Respiratory: Yes: Chest Non-Tender, Lungs Clear, Normal Breath Sounds, No Respiratory Distress, No Accessory Muscle Use Neck: Yes: No masses,lesions,Nodules, Trachea in good position Cardiology: Yes: Regular Rhythm, Regular Rate, S1, S2, Tachycardia Abdominal: Yes: Non Tender, Soft Back: Yes: Normal Inspection Musculoskeletal: Yes: Gait Steady Extremities: Yes: Normal Inspection, Normal Range of Motion, Non-Tender Neurological: Yes: Motor Strength 5/5, Depressed Affect Integumentary: Yes: Warm - Diagnostic (1) Alcohol intoxication Current Visit: Yes Status: Acute Qualifiers: Complication of substance-induced condition: uncomplicated Qualified Code(s ): F10.920 - Alcohol use, unspecified with intoxication, uncomplicated Breathalyzer - Breathalyzer Breathalyzer: 0.200 Urine Drug Screen - Test Device Lot number: [id number] Expiration date: 04/25/21 - Control Is test valid?: Yes - Results Drug screen NEGATIVE: Yes Urine drug screen results: BZO-Benzodiazepines Inpatient Rehab Admission - Rehab Decision to Admit Inpatient rehab admission?: No
[2019-10-15] MEDS ORDERED: ASPIRIN 81 MG CHEWABLE TABLETS PO SCH (17:15)
[2019-10-15] MEDS ORDERED: MAGNESIUM HYDROX 2400MG/30ML ORAL SUSPENSION 30 ML CUP PO PRN (17:17)
[2019-10-15] MEDS ORDERED: MAG HYDROX/AL HYDROX/SIMETH 30 ML UNIT-DOSE CUP PO PRN (17:17)
[2019-10-15] MEDS ORDERED: MELATONIN 5 MG TABLETS PO PRN (17:17)
[2019-10-15] MEDS ORDERED: BISMUTH SUBSALICYLATE 524 MG/30 ML UD PO PRN (17:17)
[2019-10-15] MEDS ORDERED: ACETAMINOPHEN 325 MG TABLET (FP) PO PRN ×2 (17:17)
[2019-10-15] MEDS ORDERED: MAGNESIUM CITRATE 300 ML BOTTLE PO PRN (17:17)
[2019-10-15] MEDS ORDERED: hydrOXYzine PAMOATE 25 MG CAPSULE (FP) PO PRN (17:17)
[2019-10-15] MEDS ORDERED: chlordiazePOXIDE HCL 25 MG CAPSULE PO PRN (17:19)
[2019-10-15] MEDS: CLOPIDOGREL BISULFATE 75 MG TABLET (FP) PO SCH (18:33)
[2019-10-15] MEDS: chlordiazePOXIDE HCL 25 MG CAPSULE PO SCH ×2 (18:33→22:03)
[2019-10-15] MEDS: ASPIRIN 81 MG CHEWABLE TABLETS PO SCH (18:33)
[2019-10-15] MEDS: LOSARTAN POTASSIUM 50 MG TABLET (FP) PO SCH (18:33)
[2019-10-15] MEDS: amLODIPine BESYLATE 10 MG TABLET (FP) PO SCH (18:33)
[2019-10-15] MEDS: INSULIN SLIDING SCALE (NOVOLOG) 1 VIAL SQ SCH (21:59)
[2019-10-15] MEDS: INSULIN (LEVEMIR) 100 UNITS/ML UNITS SQ SCH (22:01)
[2019-10-15] MEDS: GABAPENTIN 100 MG CAPSULE PO SCH (22:03)
[2019-10-15] MEDS: ATORVASTATIN CA 40 MG TABLET (FP) PO SCH (22:03)
[2019-10-15] MEDS: CILOSTAZOL 50 MG TABLET PO SCH (22:03)
[2019-10-15] MEDS: THIAMINE HCL 100 MG TABLET (FP) PO SCH (22:04)
[2019-10-15] MEDS: MENTHOL/PHENOL 1 EACH UD MM PRN (23:35)
[2019-10-15] MEDS ORDERED: TRIMETHOBENZAMIDE HCL 200MG/2ML INJ IM PRN (23:44)
[2019-10-15] MEDS ORDERED: PROCHLORPERAZINE MALEATE 5 MG TABLET PO PRN (23:45)
[2019-10-16] MEDS: chlordiazePOXIDE HCL 25 MG CAPSULE PO SCH ×4 (05:08→22:03)
[2019-10-16] MEDS: INSULIN SLIDING SCALE (NOVOLOG) 1 VIAL SQ SCH ×4 (06:26→22:03)
--- NOTE | 2019-10-16 09:26 | CONSULT ---
[facility] Psychiatric Consult - Data Date of interview: 10/16/19 Admission source: Self-referred Identifying data: Mr Lenz is a 58 years old [place]-born male, father of 2 children, unemployed receiving SSI, domiciled seeking detox treatment for alcohol Substance Abuse History: Reports history of alcohol use. Refer to addiction counselor's summary for further information Medical History: Significant for hypertension, dyslipidemia, type 2 diabetes mellitus, GERD, low back pain/herniated discs and abdominal surgery for removal of foreign body(dental filling) more than 10 years ago. Smokes 10 cigareyes daily Psychiatric History: Reports that 6-7 years ago, he was started on Lexapro and Alprazolam by his primary care physician for anxiety. However 2 months ago he was referred to [facility] where he is seeing a psychiatric nurse practitioner. He is currently prescribed Zoloft 50 mg/day and Alprazolam 1 mg/day. Denies previous psychiatric hospitalization or suicidal attempt. At present, reports feeling mildly anxious and sleeping poorly Physical/Sexual Abuse/Trauma History: Denies history of abuse of any type including domestic violence. No service Additional Comment: Reports history of one previous arrest 7 years ago on charges of [place] Mental Status Exam - Mental Status Exam Alert and Oriented to: Time, Place, Person Cognitive Function: Fair Patient Appearance: Well Groomed Mood: Anxious Affect: Appropriate Patient Behavior: Cooperative Speech Pattern: Clear Voice Loudness: Normal Thought Process: Intact, Goal Oriented Thought Disorder: Not Present Hallucinations: Denies Suicidal Ideation: Denies Homicidal Ideation: Denies Insight/Judgement: Poor Sleep: Poorly Appetite: Poor Muscle strength/Tone: Normal Gait/Station: Normal Psychiatric Findings - Problem List ([place] 1, 2,3) (1) Anxiety disorder Current Visit: No Status: Chronic (2) Alcohol-induced anxiety disorder Current Visit: No Status: Acute (3) Alcohol-induced sleep disorder Current Visit: Yes Status: Acute (4) Alcohol dependence with uncomplicated withdrawal Current Visit: No Status: Acute (5) Nicotine dependence Current Visit: No Status: Chronic Qualifiers: Nicotine product type: cigarettes Substance use status: uncomplicated Qualified Code(s): F17.210 - Nicotine dependence, cigarettes, uncomplicated (6) HLD (hyperlipidemia) Current Visit: No Status: Chronic (7) HTN (hypertension) Current Visit: No Status: Chronic Qualifiers: Hypertension type: essential hypertension Qualified Code(s): I10 - Essential (primary) hypertension (8) Type 2 diabetes mellitus Current Visit: No Status: Chronic (9) GERD (gastroesophageal reflux disease) Current Visit: No Status: Chronic - Initial Treatment Plan Initial Treatment Plan: 1) Continue Zoloft 50 mg po daily. 2) Start Belsomra 10 mg po HS prn for insomnia. 3) Continue inpatient detoxification
[2019-10-16 09:28] LABS: HEMATOCRIT 48.7 % (35.4-49); HEMOGLOBIN 16.6 GM/dL (11.7-16.9); MCH 30.9 pg (25.7-33.7); MCHC 34.1 g/dl (32.0-35.9); MEAN CELL VOLUME 90.7 fl (80-96); MEAN PLT VOLUME 8.4 fl (7.5-11.1); PLATELET COUNT 313 K/MM3 (134-434); RBC 5.37 M/mm3 (4.00-5.60); RDW 14.7 % (11.9-15.9); WHITE BLOOD COUNT 12.5 K/mm3 (4.0-10.0)
--- NOTE | 2019-10-16 09:35 | PN ---
S CIWA - CIWA Score Nausea/Vomitin-No Nausea/No Vomiting Muscle Tremors: 3 Anxiety: 3 Agitation: 2 Paroxysmal Sweats: 2 Orientation: 0-Oriented Tacttile Disturbances: 0-None Auditory Disturbances: 0-None Visual Disturbances: 0-None Headache: 0-None Present CIWA-Ar Total Score: 10 S Progress Note (SOAP) Subjective: shakes sweats body aches sore throat from vomiting last night Objective: 10/16/19 09:34 Vital Signs Temperature 98.4 F 10/16/19 09:25 Pulse Rate 87 10/16/19 09:25 Respiratory Rate 18 10/16/19 09:25 Blood Pressure 149/90 10/16/19 09:25 O2 Sat by Pulse Oximetry (%) Laboratory Tests 10/15/19 10/15/19 10/16/19 21:58 23:32 05:10 WBC RBC Hgb Hct MCV MCH MCHC RDW Plt Count MPV POC Glucometer 530 293 178 10/16/19 07:45 WBC 12.5 H RBC 5.37 Hgb 16.6 Hct 48.7 MCV 90.7 MCH 30.9 MCHC 34.1 RDW 14.7 Plt Count 313 D MPV 8.4 POC Glucometer rest of labs pending aaox3 ambulating no acute distress Assessment: 10/16/19 09:34 withdrawals Plan: continue detox throat lozenges prn increase fluids
[2019-10-16] MEDS: MENTHOL/PHENOL 1 EACH UD MM PRN (09:37)
[2019-10-16 09:58] LABS: ALBUMIN 3.6 g/dl (3.4-5.0); BILIRUBIN,TOTAL 1.1 mg/dL (0.2-1); BLOOD UREA NITROGEN 27.2 mg/dL (7-18); CREATININE 2.3 mg/dL (0.55-1.3); POTASSIUM 4.2 mmol/L (3.5-5.1); TOT PROT 6.8 g/dl (6.4-8.2)
[2019-10-16] MEDS: INSULIN (LEVEMIR) 100 UNITS/ML UNITS SQ SCH ×2 (10:22→22:03)
[2019-10-16] MEDS: CLOPIDOGREL BISULFATE 75 MG TABLET (FP) PO SCH (10:22)
[2019-10-16] MEDS: ASPIRIN 81 MG CHEWABLE TABLETS PO SCH (10:22)
[2019-10-16] MEDS: GABAPENTIN 100 MG CAPSULE PO SCH ×2 (10:22→22:03)
[2019-10-16] MEDS: CILOSTAZOL 50 MG TABLET PO SCH ×2 (10:22→22:03)
[2019-10-16] MEDS: amLODIPine BESYLATE 10 MG TABLET (FP) PO SCH (10:22)
[2019-10-16] MEDS: LOSARTAN POTASSIUM 50 MG TABLET (FP) PO SCH (10:22)
[2019-10-16] MEDS: PRENATAL VITAMINS W/ FOLIC ACID TABLET (FP) PO SCH (10:22)
[2019-10-16] MEDS: SERTRALINE HCL 50 MG TABLET (FP) PO SCH (10:27)
[2019-10-16] MEDS ORDERED: PNEUMOC 13-VAL CONJ-DIP CRM/PF 0.5 ML DISP.SYRIN IM ONE (12:00)
[2019-10-16] MEDS ORDERED: INSULIN SLIDING SCALE (NOVOLOG) 1 VIAL SQ ONE (20:18)
[2019-10-16] MEDS: ATORVASTATIN CA 40 MG TABLET (FP) PO SCH (22:03)
[2019-10-16] MEDS: THIAMINE HCL 100 MG TABLET (FP) PO SCH (22:04)
[2019-10-16] MEDS: SUVOREXANT 10 MG TABLET PO PRN (22:12)
[2019-10-17] MEDS: chlordiazePOXIDE HCL 25 MG CAPSULE PO SCH ×2 (05:55→10:32)
[2019-10-17] MEDS: INSULIN SLIDING SCALE (NOVOLOG) 1 VIAL SQ SCH ×4 (07:40→21:01)
--- NOTE | 2019-10-17 10:31 | EKG ---
Test Reason : Blood Pressure : / mmHG Vent. Rate : 072 BPM Atrial Rate : 072 BPM P-R Int : 132 ms QRS Dur : 118 ms QT Int : 422 ms P-R-T Axes : -04 082 044 degrees QTc Int : 462 ms NORMAL SINUS RHYTHM RIGHT BUNDLE BRANCH BLOCK ABNORMAL ECG WHEN COMPARED WITH ECG OF 01-OCT-2016 18:41, NO SIGNIFICANT CHANGE WAS FOUND Confirmed by TOMASA MERCHANT, PETE ([id number]) on 10/17/2019 10:30:48 AM Referred By: Dylon Romeo Confirmed By:PETE RANDOLPH MD
[2019-10-17] MEDS: ASPIRIN 81 MG CHEWABLE TABLETS PO SCH (10:32)
[2019-10-17] MEDS: amLODIPine BESYLATE 10 MG TABLET (FP) PO SCH (10:32)
[2019-10-17] MEDS: CILOSTAZOL 50 MG TABLET PO SCH ×2 (10:32→22:09)
[2019-10-17] MEDS: LOSARTAN POTASSIUM 50 MG TABLET (FP) PO SCH (10:32)
[2019-10-17] MEDS: PRENATAL VITAMINS W/ FOLIC ACID TABLET (FP) PO SCH (10:32)
[2019-10-17] MEDS: CLOPIDOGREL BISULFATE 75 MG TABLET (FP) PO SCH (10:32)
[2019-10-17] MEDS: GABAPENTIN 100 MG CAPSULE PO SCH ×2 (10:32→22:09)
[2019-10-17] MEDS: SERTRALINE HCL 50 MG TABLET (FP) PO SCH (10:32)
[2019-10-17] MEDS: INSULIN (LEVEMIR) 100 UNITS/ML UNITS SQ SCH ×2 (10:40→21:00)
[2019-10-17] MEDS ORDERED: INSULIN (NOVOLOG) ASPART 100 UNITS/ML 10ML VIAL ONE (11:28)
--- NOTE | 2019-10-17 11:44 | PN ---
S CIWA - CIWA Score Nausea/Vomitin-No Nausea/No Vomiting Muscle Tremors: 2 Anxiety: 1-Mildly Anxious Agitation: 1-Slight > Activity Paroxysmal Sweats: No Perspiration Orientation: 0-Oriented Tacttile Disturbances: 0-None Auditory Disturbances: 0-None Visual Disturbances: 0-None Headache: 0-None Present CIWA-Ar Total Score: 4 BHS Progress Note (SOAP) Subjective: no shakes feeling so much better will like to leave tomorrow. Objective: 10/17/19 11:42 Vital Signs Temperature 98.1 F 10/17/19 09:12 Pulse Rate 99 H 10/17/19 09:12 Respiratory Rate 10/17/19 09:12 Blood Pressure 119/70 10/17/19 09:12 O2 Sat by Pulse Oximetry (%) Laboratory Tests 10/15/19 10/15/19 10/16/19 21:58 23:32 05:10 WBC RBC Hgb Hct MCV MCH MCHC RDW Plt Count MPV Sodium Potassium Chloride Carbon Dioxide Anion Gap BUN Creatinine Est GFR (CKD-EPI)AfAm Est GFR (CKD-EPI)NonAf POC Glucometer 530 293 178 Random Glucose Calcium Total Bilirubin AST ALT Alkaline Phosphatase Total Protein Albumin RPR Titer 10/16/19 10/16/19 10/16/19 07:45 07:45 07:45 WBC 12.5 H RBC 5.37 Hgb 16.6 Hct 48.7 MCV 90.7 MCH 30.9 MCHC 34.1 RDW 14.7 Plt Count 313 D MPV 8.4 Sodium 136 Potassium 4.2 Chloride 97 L Carbon Dioxide 32 Anion Gap 7 L BUN 27.2 H Creatinine 2.3 H Est GFR (CKD-EPI)AfAm 35.47 Est GFR (CKD-EPI)NonAf 30.60 POC Glucometer Random Glucose 188 H Calcium 9.0 Total Bilirubin 1.1 H AST 24 ALT 35 Alkaline Phosphatase 108 Total Protein 6.8 Albumin 3.6 RPR Titer Nonreactive 10/16/19 10/16/19 10/16/19 10:30 16:11 20:14 WBC RBC Hgb Hct MCV MCH MCHC RDW Plt Count MPV Sodium Potassium Chloride Carbon Dioxide Anion Gap BUN Creatinine Est GFR (CKD-EPI)AfAm Est GFR (CKD-EPI)NonAf POC Glucometer 413 176 322 Random Glucose Calcium Total Bilirubin AST ALT Alkaline Phosphatase Total Protein Albumin RPR Titer 10/17/19 10/17/19 05:54 10:38 WBC RBC Hgb Hct MCV MCH MCHC RDW Plt Count MPV Sodium Potassium Chloride Carbon Dioxide Anion Gap BUN Creatinine Est GFR (CKD-EPI)AfAm Est GFR (CKD-EPI)NonAf POC Glucometer 279 415 Random Glucose Calcium Total Bilirubin AST ALT Alkaline Phosphatase Total Protein Albumin RPR Titer aaox3 ambulating no acute distress Assessment: 10/17/19 11:42 mild to no withdrawals noted Plan: modify librium taper increase fluids d/c in am
[2019-10-17] MEDS ORDERED: CYCLOBENZAPRINE HCL 10 MG TABLET (FP) PO PRN (13:28)
[2019-10-17] MEDS: chlordiazePOXIDE 5 MG CAPSULE PO SCH ×2 (16:35→22:09)
[2019-10-17] MEDS ORDERED: chlordiazePOXIDE HCL 25 MG CAPSULE PO SCH (17:00)
[2019-10-17] MEDS: ATORVASTATIN CA 40 MG TABLET (FP) PO SCH (22:09)
[2019-10-17] MEDS: SUVOREXANT 10 MG TABLET PO PRN (22:09)
[2019-10-17] MEDS: THIAMINE HCL 100 MG TABLET (FP) PO SCH (22:09)
[2019-10-18] MEDS ORDERED: chlordiazePOXIDE HCL 10 MG CAPSULE PO PRN
[2019-10-18] MEDS ORDERED: chlordiazePOXIDE HCL 10 MG CAPSULE PO SCH (05:00)
[2019-10-18] MEDS ORDERED: chlordiazePOXIDE HCL 10 MG CAPSULE PO ONE (05:00)
[2019-10-18 06:27] VITALS: BP 130/77; PULSE 72; TEMP 96.3
[2019-10-18] MEDS: INSULIN SLIDING SCALE (NOVOLOG) 1 VIAL SQ SCH (07:44)
--- NOTE | 2019-10-18 08:53 | DS ---
[facility] Detox Discharge Summary Admission Date: 10/15/19 Discharge Date: 10/18/19 - History Present History: Alcohol Dependence - Physical Exam Results Vital Signs: Vital Signs Temperature 96.3 F L 10/18/19 06:26 Pulse Rate 72 10/18/19 06:26 Respiratory Rate 18 10/18/19 06:26 Blood Pressure 130/77 10/18/19 06:26 O2 Sat by Pulse Oximetry (%) Pertinent Admission Physical Exam Findings: Vital Signs Temperature 96.3 F L 10/18/19 06:26 Pulse Rate 72 10/18/19 06:26 Respiratory Rate 18 10/18/19 06:26 Blood Pressure 130/77 10/18/19 06:26 O2 Sat by Pulse Oximetry (%) Laboratory Tests 10/15/19 10/15/19 10/16/19 21:58 23:32 05:10 WBC RBC Hgb Hct MCV MCH MCHC RDW Plt Count MPV Sodium Potassium Chloride Carbon Dioxide Anion Gap BUN Creatinine Est GFR (CKD-EPI)AfAm Est GFR (CKD-EPI)NonAf POC Glucometer 530 293 178 Random Glucose Calcium Total Bilirubin AST ALT Alkaline Phosphatase Total Protein Albumin RPR Titer 10/16/19 10/16/19 10/16/19 07:45 07:45 07:45 WBC 12.5 H RBC 5.37 Hgb 16.6 Hct 48.7 MCV 90.7 MCH 30.9 MCHC 34.1 RDW 14.7 Plt Count 313 D MPV 8.4 Sodium 136 Potassium 4.2 Chloride 97 L Carbon Dioxide 32 Anion Gap 7 L BUN 27.2 H Creatinine 2.3 H Est GFR (CKD-EPI)AfAm 35.47 Est GFR (CKD-EPI)NonAf 30.60 POC Glucometer Random Glucose 188 H Calcium 9.0 Total Bilirubin 1.1 H AST 24 ALT 35 Alkaline Phosphatase 108 Total Protein 6.8 Albumin 3.6 RPR Titer Nonreactive 10/16/19 10/16/19 10/16/19 10:30 16:11 20:14 WBC RBC Hgb Hct MCV MCH MCHC RDW Plt Count MPV Sodium Potassium Chloride Carbon Dioxide Anion Gap BUN Creatinine Est GFR (CKD-EPI)AfAm Est GFR (CKD-EPI)NonAf POC Glucometer 413 176 322 Random Glucose Calcium Total Bilirubin AST ALT Alkaline Phosphatase Total Protein Albumin RPR Titer 10/17/19 10/17/19 10/17/19 05:54 10:38 16:22 WBC RBC Hgb Hct MCV MCH MCHC RDW Plt Count MPV Sodium Potassium Chloride Carbon Dioxide Anion Gap BUN Creatinine Est GFR (CKD-EPI)AfAm Est GFR (CKD-EPI)NonAf POC Glucometer 279 415 343 Random Glucose Calcium Total Bilirubin AST ALT Alkaline Phosphatase Total Protein Albumin RPR Titer 10/17/19 10/18/19 20:32 05:20 WBC RBC Hgb Hct MCV MCH MCHC RDW Plt Count MPV Sodium Potassium Chloride Carbon Dioxide Anion Gap BUN Creatinine Est GFR (CKD-EPI)AfAm Est GFR (CKD-EPI)NonAf POC Glucometer 422 181 Random Glucose Calcium Total Bilirubin AST ALT Alkaline Phosphatase Total Protein Albumin RPR Titer - Treatment Hospital Course: Detox Protocol Followed, Detoxed Safely, Responded well, Discharged Condition Good, Rehab Referral Accepted - Medication Discharge Medications: Ambulatory Orders Amlodipine Besylate [Norvasc -] 10 mg PO DAILY 10/17/14 Cilostazol [Pletal -] 50 mg PO BID 10/17/14 Clopidogrel Bisulfate [Clopidogrel] 75 mg PO DAILY 10/17/14 Aspirin [Children's Aspirin] 81 mg PO DAILY 09/30/16 Atorvastatin Ca [Lipitor] 40 mg PO HS 09/30/16 Cyanocobalamin [Vitamin B12 -] 100 mcg PO DAILY 09/30/16 Folic Acid 1 mg PO DAILY 09/30/16 Losartan Potassium 50 mg PO DAILY 09/30/16 Pyridoxine HCl (B-6) [Vitamin B6] 100 mg PO DAILY 09/30/16 Thiamine HCl [B-1] 100 mg PO DAILY 09/30/16 Gabapentin [Neurontin -] 100 mg PO BID 05/15/19 Insulin Glargine,Hum.rec.anlog [Basaglar Kwikpen U-100] 8 unit SQ DAILY MDD 30 morning and 40 evening 05/15/19 LORazepam [Lorazepam] 1 mg PO DAILY 10/15/19 Sertraline HCl 50 mg PO DAILY 10/15/19 - Diagnosis (1) Alcohol intoxication Current Visit: Yes Status: Acute Qualifiers: Complication of substance-induced condition: uncomplicated Qualified Code(s ): F10.920 - Alcohol use, unspecified with intoxication, uncomplicated (2) Alcohol-induced sleep disorder Current Visit: Yes Status: Acute (3) Alcohol dependence with uncomplicated withdrawal Current Visit: Yes Status: Chronic (4) Alcohol-induced anxiety disorder Current Visit: No Status: Acute (5) Alcohol-induced mood disorder Current Visit: No Status: Acute (6) Alcohol-induced mood disorder Current Visit: No Status: Acute (7) GI bleed Current Visit: No Status: Acute (8) Hyperglycemia Current Visit: Yes Status: Chronic (9) Nausea and vomiting Current Visit: No Status: Acute Qualifiers: Vomiting type: unspecified Vomiting Intractability: non-intractable Qualified Code(s): R11.2 - Nausea with vomiting, unspecified (10) Anxiety disorder Current Visit: No Status: Chronic (11) Depressive disorder Current Visit: No Status: Chronic (12) GERD (gastroesophageal reflux disease) Current Visit: Yes Status: Chronic Qualifiers: Esophagitis presence: without esophagitis Qualified Code(s): K21.9 - Gastro -esophageal reflux disease without esophagitis (13) Gallbladder disease Current Visit: No Status: Chronic (14) HLD (hyperlipidemia) Current Visit: Yes Status: Chronic (15) HTN (hypertension) Current Visit: Yes Status: Chronic Qualifiers: Hypertension type: essential hypertension Qualified Code(s): I10 - Essential (primary) hypertension (16) History of depression Current Visit: No Status: Chronic (17) Hypertriglyceridemia Current Visit: No Status: Chronic (18) Nicotine dependence Current Visit: No Status: Chronic Qualifiers: Nicotine product type: cigarettes Substance use status: uncomplicated Qualified Code(s): F17.210 - Nicotine dependence, cigarettes, uncomplicated (19) Renal insufficiency Current Visit: No Status: Chronic (20) Type 2 diabetes mellitus Current Visit: No Status: Chronic Qualifiers: 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
[2019-10-19] MEDS ORDERED: chlordiazePOXIDE HCL 10 MG CAPSULE PO SCH (05:00)
[2019-10-20] MEDS ORDERED: chlordiazePOXIDE HCL 10 MG CAPSULE PO ONE (05:00)
== END 2019-10-18 08:50 | disposition home or self-care (01) | DRG 775 ==
LOC: YASAS 13:48 → Y6N 17:25
PROVIDERS: ADMIT Allergy & Immunology; ATTEND Allergy & Immunology
PROC: HZ2ZZZZ Detoxification Services for Substance Abuse Treatment (ICD-10-PCS; principal; 2019-10-15)
DX: F10.230 Alcohol dependence with withdrawal, uncomplicated (principal); F17.210 Nicotine dependence, cigarettes, uncomplicated; F10.280 Alcohol dependence with alcohol-induced anxiety disorder; F10.282 Alcohol dependence with alcohol-induced sleep disorder; F10.24 Alcohol dependence with alcohol-induced mood disorder; F32.9 Major depressive disorder, single episode, unspecified; F41.8 Other specified anxiety disorders; K21.9 Gastro-esophageal reflux disease without esophagitis; I10 Essential (primary) hypertension; E78.5 Hyperlipidemia, unspecified; E78.1 Pure hyperglyceridemia; E11.9 Type 2 diabetes mellitus without complications; Z79.4 Long term (current) use of insulin; M54.5 Low back pain; Z88.8 Allergy status to other drugs, medicaments and biological substances; Z87.19 Personal history of other diseases of the digestive system
CPT/HCPCS: 36415; 80053; 82962; 85027; 86593; 93005; 93010

== ENCOUNTER 2020-04-17 16:12 | Inpatient (IN) | payer OTHER ==
[2020-04-17 18:52] VITALS: BMI 20.9
--- NOTE | 2020-04-17 19:15 | HP ---
CIWA Score - Admission Criteria [facility]AS Guidelines: Admission for Medically Managed Detox: Requires at least one of the followin. CIWA greater than 12 2. Seizures within the past 24 hours 3. Delirium tremens within the past 24 hours 4. Hallucinations within the past 24 hours 5. Acute intervention needed for co occurring medical disorder 6. Acute intervention needed for co occurring psychiatric disorder 7. Severe withdrawal that cannot be handled at a lower level of care (continued vomiting, continued diarrhea, abnormal vital signs) requiring intravenous medication and/or fluids 8. Admitting History and Physical - Smoking History Smoking history: Current every day smoker Have you smoked in the past 12 months: No Aproximately how many cigarettes per day: 10 - Alcohol/Substance Use Hx Alcohol Use: Yes (1 pint of vodka per day) Admission ROS [facility] Allergies/Adverse Reactions: Allergies Allergy/AdvReac Type Severity Reaction Status Date / Time Iodine and Iodide Containing Allergy Verified 10/15/19 15:54 Produc Patient History - Patient Medical History Hx Anemia: No Hx Asthma: No Hx Chronic Obstructive Pulmonary Disease (COPD): No Hx Cancer: No Hx Cardiac Disorders: No Hx Congestive Heart Failure: No Hx Hypertension: Yes Hx Hypercholesterolemia: Yes (TRIGLYCERIDES) Hx Pacemaker: No HX Cerebrovascular Accident: No Hx Seizures: No Hx Dementia: No Hx Diabetes: Yes Hx Gastrointestinal Disorders: No Hx Liver Disease: No Hx Genitourinary Disorders: No Hx Sexually Transmitted Disorders: No Hx Renal Disease (ESRD): No Hx Thyroid Disease: No Hx Human Immunodeficiency Virus (HIV): No Hx Hepatitis C: No Hx Depression: Yes Hx Suicide Attempt: No Hx Bipolar Disorder: No Hx Schizophrenia: No - Patient Surgical History Past Surgical History: Yes Hx Neurologic Surgery: No Hx Cataract Extraction: No Hx Cardiac Surgery: No Hx Lung Surgery: No Hx Breast Surgery: No Hx Breast Biopsy: No Hx Abdominal Surgery: Yes (EXPLORATORY LAP. TO REMOVE FOREIGN BODY) Hx Appendectomy: No Hx Cholecystectomy: No Hx Genitourinary Surgery: No Hx Section: No Hx Orthopedic Surgery: No Hx Hysterectomy: No Anesthesia Reaction: No - PPD History Date: 05/15/19 Results: 00 - Smoking Cessation Smoking history: Current every day smoker Have you smoked in the past 12 months: No Aproximately how many cigarettes per day: 10 Hx Chewing Tobacco Use: No Admission Physical Exam S - Vital Signs Vital Signs: Vital Signs - 24 hr 04/17/20 18:50 Temperature 98.1 F Pulse Rate 78 Respiratory 18 Rate Blood Pressure 139/80 Breathalyzer - Breathalyzer Breathalyzer: 0.209 Urine Drug Screen - Test Device Lot number: [id number] Expiration date: 05/26/21 - Control Is test valid?: Yes - Results Drug screen NEGATIVE: Yes Urine drug screen results: BZO-Benzodiazepines
[2020-04-17] MEDS ORDERED: NICOTINE POLACRILEX 2 MG GUM BUC PRN (19:29)
[2020-04-17] MEDS ORDERED: MAGNESIUM CITRATE 300 ML BOTTLE PO PRN (19:29)
[2020-04-17] MEDS ORDERED: MAGNESIUM HYDROX 2400MG/30ML ORAL SUSPENSION 30 ML CUP PO PRN (19:29)
[2020-04-17] MEDS ORDERED: ACETAMINOPHEN 325 MG TABLET (FP) PO PRN ×2 (19:29)
[2020-04-17] MEDS ORDERED: MENTHOL/PHENOL 1 EACH UD MM PRN (19:29)
[2020-04-17] MEDS ORDERED: IBUPROFEN 400 MG TABLET (FP) PO PRN (19:29)
[2020-04-17] MEDS ORDERED: chlordiazePOXIDE HCL 25 MG CAPSULE PO PRN (19:33)
--- NOTE | 2020-04-17 19:51 | HP ---
CIWA Score Nausea/Vomitin-Int. Nausea w/Dry Heave Muscle Tremors: 2 Anxiety: 2 Agitation: 1-Slight > Activity Paroxysmal Sweats: 1-Minimal Palms Moist Orientation: 0-Oriented Tacttile Disturbances: 0-None Auditory Disturbances: 1-Very Mild Visual Disturbances: 2-Mild Sensitivity Headache: 1-Very Mild CIWA-Ar Total Score: 14 - Admission Criteria OASAS Guidelines: Admission for Medically Managed Detox: Requires at least one of the followin. CIWA greater than 12 2. Seizures within the past 24 hours 3. Delirium tremens within the past 24 hours 4. Hallucinations within the past 24 hours 5. Acute intervention needed for co occurring medical disorder 6. Acute intervention needed for co occurring psychiatric disorder 7. Severe withdrawal that cannot be handled at a lower level of care (continued vomiting, continued diarrhea, abnormal vital signs) requiring intravenous medication and/or fluids 8. Admitting History and Physical - Admission Chief Complaint: i need alcohol detox History of Present Illness: Pt is a 59 y/o male with past medical history of DM, HTN, PVD with right popliteal bypass, gallstone , alcohol and nicotine use disorder. Here for alcohol detox. Started drinking in his 20's, drinks 6 pack of beer daily and last drink was this morning. History Source: Patient Limitations to Obtaining History: No Limitations - Past Medical History Cardiovascular: Yes: HTN Gastrointestinal: Yes: Gastritis Hepatobiliary: Yes: Cholelithiasis - Past Surgical History Past Surgical History: Yes: Bypass Additional Past Surgical History: right fem-pop bypass. - Smoking History Smoking history: Current every day smoker Have you smoked in the past 12 months: No Aproximately how many cigarettes per day: 10 - Alcohol/Substance Use Hx Alcohol Use: Yes Number of Drinks Daily: 6 - Social History Usual Living Arrangement: Yes: Alone ADL: Independent History of Recent Travel: No Admission [facility] Allergies/Adverse Reactions: Allergies Allergy/AdvReac Type Severity Reaction Status Date / Time Iodine and Iodide Containing Allergy Verified 10/15/19 15:54 Produc History of Present Illness: Pt is a 59 y/o male with past medical history of DM, HTN, PVD with right pop liteal bypass, gallstone , alcohol and nicotine use disorder. Here for alcohol detox. Started drinking in his 20's, drinks 6 pack of beer daily and last drink was this morning. - Ebola screening Have you traveled outside of the country in the last 21 days: No Have you had contact with anyone from an Ebola affected area: No Have you been sick,other than usual withdrawal symptoms: No Do you have a fever: No - Review of Systems Constitutional: No Symptoms Reported EENT: reports: No Symptoms Reported Respiratory: reports: No Symptoms reported Cardiac: reports: No Symptoms Reported GI: reports: Nausea, Vomiting : reports: No Symptoms Reported Musculoskeletal: reports: No Symptoms Reported Integumentary: reports: No Symptoms Reported Neuro: reports: No Symptoms reported Endocrine: reports: No Symptoms Reported Hematology: reports: No Symptoms Reported Psychiatric: reports: No Sypmtoms Reported, Judgement Intact, Orientated x3, Anxious Patient History - Patient Medical History Hx Anemia: No Hx Asthma: No Hx Chronic Obstructive Pulmonary Disease (COPD): No Hx Cancer: No Hx Cardiac Disorders: No Hx Congestive Heart Failure: No Hx Hypertension: Yes Hx Hypercholesterolemia: Yes (TRIGLYCERIDES) Hx Pacemaker: No HX Cerebrovascular Accident: No Hx Seizures: No Hx Dementia: No Hx Diabetes: Yes Hx Gastrointestinal Disorders: No Hx Liver Disease: No Hx Genitourinary Disorders: No Hx Sexually Transmitted Disorders: No Hx Renal Disease (ESRD): No Hx Thyroid Disease: No Hx Human Immunodeficiency Virus (HIV): No Hx Hepatitis C: No Hx Depression: Yes Hx Suicide Attempt: No Hx Bipolar Disorder: No Hx Schizophrenia: No - Patient Surgical History Past Surgical History: Yes Hx Neurologic Surgery: No Hx Cataract Extraction: No Hx Cardiac Surgery: No Hx Lung Surgery: No Hx Breast Surgery: No Hx Breast Biopsy: No Hx Abdominal Surgery: Yes (EXPLORATORY LAP. TO REMOVE FOREIGN BODY) Hx Appendectomy: No Hx Cholecystectomy: No Hx Genitourinary Surgery: No Hx Section: No Hx Orthopedic Surgery: No Hx Hysterectomy: No Anesthesia Reaction: No - PPD History Date: 05/15/19 Results: 00 - Smoking Cessation Smoking history: Current every day smoker Have you smoked in the past 12 months: No Aproximately how many cigarettes per day: 10 Cigars Per Day: 10 Hx Chewing Tobacco Use: No Initiated information on smoking cessation: Yes 'Breaking Loose' booklet given: 04/17/20 Admission Physical Exam [facility]HS - Vital Signs Vital Signs: Vital Signs - 24 hr 04/17/20 18:50 Temperature 98.1 F Pulse Rate 78 Respiratory 18 Rate Blood Pressure 139/80 - Physical General Appearance: Yes: Within Normal Limits HEENTM: Yes: Within Normal Limits Respiratory: Yes: Within Normal Limits Neck: Yes: Within Normal Limits Breast: Yes: Breasts Symetrical Cardiology: Yes: Within Normal Limits Abdominal: Yes: Surgical Scar (SP ex lap for swallowing his crown.) Extremities: Yes: Normal Capillary Refill, Coldness Neurological: Yes: Within Normal Limits - Diagnostic (1) Alcohol dependence with uncomplicated withdrawal Current Visit: No Status: Acute Cleared for Admission [facility] - Detox or Rehab [facility] Level of Care: Medically Managed Breathalyzer - Breathalyzer Breathalyzer: 0.209 Urine Drug Screen - Test Device Lot number: [id number] Expiration date: 05/26/21 - Control Is test valid?: Yes - Results Drug screen NEGATIVE: Yes Urine drug screen results: BZO-Benzodiazepines Inpatient Rehab Admission - Rehab Decision to Admit Inpatient rehab admission?: No
[2020-04-17] MEDS ORDERED: ONDANSETRON *ODT* 4 MG TABLET SL ONE (20:00)
[2020-04-17] MEDS: hydrOXYzine PAMOATE 25 MG CAPSULE (FP) PO SCH (21:22)
[2020-04-17] MEDS: ATORVASTATIN CA 40 MG TABLET (FP) PO SCH (21:22)
[2020-04-17] MEDS: THIAMINE HCL 100 MG TABLET (FP) PO SCH (21:22)
[2020-04-17] MEDS: MELATONIN 5 MG TABLETS PO SCH (21:23)
[2020-04-17] MEDS: GABAPENTIN 100 MG CAPSULE PO SCH (21:23)
[2020-04-17] MEDS: METHOCARBAMOL 500 MG TABLET PO PRN (21:35)
[2020-04-17] MEDS: CILOSTAZOL 50 MG TABLET PO SCH (21:39)
[2020-04-17] MEDS: chlordiazePOXIDE HCL 25 MG CAPSULE PO SCH (22:08)
[2020-04-18] MEDS: hydrOXYzine PAMOATE 25 MG CAPSULE (FP) PO SCH (06:12)
[2020-04-18] MEDS: chlordiazePOXIDE HCL 25 MG CAPSULE PO SCH ×4 (06:12→22:19)
[2020-04-18] MEDS: MAG HYDROX/AL HYDROX/SIMETH 30 ML UNIT-DOSE CUP PO PRN ×2 (07:03→16:49)
[2020-04-18] MEDS ORDERED: hydrOXYzine PAMOATE 25 MG CAPSULE (FP) PO PRN (08:24)
[2020-04-18] MEDS: BISMUTH SUBSALICYLATE 524 MG/30 ML UD PO PRN ×2 (09:03→12:49)
[2020-04-18] MEDS ORDERED: INSULIN (LEVEMIR) 100 UNITS/ML UNITS SQ SCH (10:00)
[2020-04-18 10:21] LABS: HEMATOCRIT 48.1 % (35.4-49); HEMOGLOBIN 16.4 GM/dL (11.7-16.9); MCHC 34.1 g/dl (32.0-35.9); MEAN CELL VOLUME 93.7 fl (80-96); PLATELET COUNT 230 K/MM3 (134-434); RBC 5.14 M/mm3 (4.00-5.60); RDW 14.6 % (11.9-15.9); WHITE BLOOD COUNT 6.3 K/mm3 (4.0-10.0)
[2020-04-18 10:39] LABS: BLOOD UREA NITROGEN 19.6 mg/dL (7-18); CALCIUM 8.8 mg/dL (8.5-10.1); POTASSIUM 4.1 mmol/L (3.5-5.1)
[2020-04-18 10:44] LABS: ALBUMIN 3.1 g/dl (3.4-5.0); BILIRUBIN,TOTAL 1.4 mg/dL (0.2-1); CREATININE 1.8 mg/dL (0.55-1.3); TOT PROT 6.3 g/dl (6.4-8.2)
--- NOTE | 2020-04-18 11:19 | EKG ---
Test Reason : Blood Pressure : / mmHG Vent. Rate : 070 BPM Atrial Rate : 070 BPM P-R Int : 148 ms QRS Dur : 122 ms QT Int : 464 ms P-R-T Axes : 051 088 048 degrees QTc Int : 501 ms NORMAL SINUS RHYTHM RIGHT BUNDLE BRANCH BLOCK ABNORMAL ECG WHEN COMPARED WITH ECG OF 15-OCT-2019 17:47, NO SIGNIFICANT CHANGE WAS FOUND Confirmed by HENRIQUE DIAMOND MD ([id number]) on 04/18/2020 11:19:02 AM Referred By: Confirmed By:HENRIQUE DIAMOND MD
[2020-04-18] MEDS: amLODIPine BESYLATE 10 MG TABLET (FP) PO SCH (11:32)
[2020-04-18] MEDS: ASPIRIN 81 MG CHEWABLE TABLETS PO SCH (11:33)
[2020-04-18] MEDS: CLOPIDOGREL BISULFATE 75 MG TABLET (FP) PO SCH (11:33)
[2020-04-18] MEDS: GABAPENTIN 100 MG CAPSULE PO SCH ×2 (11:33→22:19)
[2020-04-18] MEDS: PRENATAL VITAMINS W/ FOLIC ACID TABLET (FP) PO SCH (11:33)
[2020-04-18] MEDS: LOSARTAN POTASSIUM 50 MG TABLET (FP) PO SCH (11:33)
[2020-04-18] MEDS: NICOTINE 7 MG/24 HOURS TOPICAL PATCH TD SCH (11:45)
[2020-04-18] MEDS ORDERED: TRIMETHOBENZAMIDE HCL 300 MG CAPSULE PO PRN (12:16)
[2020-04-18] MEDS ORDERED: DICYCLOMINE HCL 10 MG CAPSULE PO PRN (12:16)
--- NOTE | 2020-04-18 12:20 | PN ---
[facility] CIWA - CIWA Score Nausea/Vomitin-Mild Nausea/No Vomiting Muscle Tremors: 4-Moderate,w/Arms Extend Anxiety: 2 Agitation: 3 Paroxysmal Sweats: 3 Orientation: 0-Oriented Tacttile Disturbances: 0-None Auditory Disturbances: 0-None Visual Disturbances: 0-None Headache: 0-None Present CIWA-Ar Total Score: 13 S Progress Note (SOAP) Subjective: nausea stomach cramping sweats headache shakes interrupted sleep Objective: 04/18/20 12:18 Vital Signs Temperature 98.6 F 04/18/20 08:43 Pulse Rate 72 04/18/20 08:43 Respiratory Rate 18 04/18/20 08:43 Blood Pressure 145/84 04/18/20 08:43 O2 Sat by Pulse Oximetry (%) 95 04/18/20 08:43 Laboratory Tests 04/17/20 04/18/20 04/18/20 20:24 06:11 08:15 WBC RBC Hgb Hct MCV MCH MCHC RDW Plt Count MPV Sodium Potassium Chloride Carbon Dioxide Anion Gap BUN Creatinine Est GFR (CKD-EPI)AfAm Est GFR (CKD-EPI)NonAf POC Glucometer 218 83 Random Glucose Calcium Total Bilirubin AST ALT Alkaline Phosphatase Total Protein Albumin Syphilis Serology Non-reactive 04/18/20 04/18/20 04/18/20 08:15 08:15 11:41 WBC 6.3 RBC 5.14 Hgb 16.4 Hct 48.1 MCV 93.7 MCH 32.0 MCHC 34.1 RDW 14.6 Plt Count 230 D MPV 8.0 Sodium 139 Potassium 4.1 Chloride 103 Carbon Dioxide 24 Anion Gap 12 BUN 19.6 H Creatinine 1.8 H Est GFR (CKD-EPI)AfAm 47.37 Est GFR (CKD-EPI)NonAf 40.87 POC Glucometer 130 Random Glucose 151 H Calcium 8.8 Total Bilirubin 1.4 H AST 65 H ALT 68 H Alkaline Phosphatase 73 Total Protein 6.3 L Albumin 3.1 L Syphilis Serology labs noted aaox3 ambulating no acute distress Assessment: 04/18/20 12:19 withdrawals Plan: continue detox increase fluids insulin sliding scale ordered for BGM coverage diet order placed bently ordered glucerna ordered
[2020-04-18] MEDS: CYANOCOBALAMIN (VITAMIN B-12) 100 MCG TABLET PO SCH (12:40)
[2020-04-18] MEDS: CILOSTAZOL 50 MG TABLET PO SCH ×2 (15:55→22:18)
[2020-04-18] MEDS ORDERED: INSULIN SLIDING SCALE (NOVOLOG) 1 VIAL SQ ONE (17:26)
[2020-04-18] MEDS: INSULIN (NOVOLOG) ASPART 100 UNITS/ML 10ML VIAL SQ SCH (17:28)
[2020-04-18] MEDS: THIAMINE HCL 100 MG TABLET (FP) PO SCH (22:18)
[2020-04-18] MEDS: ATORVASTATIN CA 40 MG TABLET (FP) PO SCH (22:18)
[2020-04-18] MEDS: MELATONIN 5 MG TABLETS PO SCH (22:19)
[2020-04-19] MEDS: chlordiazePOXIDE HCL 25 MG CAPSULE PO SCH ×4 (05:44→22:12)
[2020-04-19] MEDS: INSULIN (NOVOLOG) ASPART 100 UNITS/ML 10ML VIAL SQ SCH ×3 (08:09→17:04)
[2020-04-19] MEDS: CLOPIDOGREL BISULFATE 75 MG TABLET (FP) PO SCH (10:30)
[2020-04-19] MEDS: CYANOCOBALAMIN (VITAMIN B-12) 100 MCG TABLET PO SCH (10:30)
[2020-04-19] MEDS: amLODIPine BESYLATE 10 MG TABLET (FP) PO SCH (10:30)
[2020-04-19] MEDS: LOSARTAN POTASSIUM 50 MG TABLET (FP) PO SCH (10:31)
[2020-04-19] MEDS: PRENATAL VITAMINS W/ FOLIC ACID TABLET (FP) PO SCH (10:31)
[2020-04-19] MEDS: GABAPENTIN 100 MG CAPSULE PO SCH ×2 (10:31→22:12)
[2020-04-19] MEDS: CILOSTAZOL 50 MG TABLET PO SCH ×2 (10:31→22:12)
[2020-04-19] MEDS: ASPIRIN 81 MG CHEWABLE TABLETS PO SCH (10:31)
[2020-04-19] MEDS: NICOTINE 7 MG/24 HOURS TOPICAL PATCH TD SCH (10:31)
--- NOTE | 2020-04-19 14:11 | PN ---
[facility] CIWA - CIWA Score Nausea/Vomitin-Mild Nausea/No Vomiting Muscle Tremors: 2 Anxiety: 2 Agitation: 1-Slight > Activity Paroxysmal Sweats: 2 Orientation: 0-Oriented Tacttile Disturbances: 0-None Auditory Disturbances: 0-None Visual Disturbances: 0-None Headache: 2-Mild CIWA-Ar Total Score: 10 S Progress Note (SOAP) Subjective: Complaints of nausea, abdominal pain/cramping, shakes, sweat and mild headache. Objective: 04/19/20 14:08 Vital Signs 04/19/20 04/19/20 08:28 12:41 Temperature 97.3 F L 97.5 F L Pulse Rate 87 85 Respiratory 18 16 Rate Blood Pressure 136/79 136/74 O2 Sat by Pulse 98 100 Oximetry (%) Laboratory Last Values WBC 6.3 K/mm3 (4.0-10.0) 04/18/20 08:15 RBC 5.14 M/mm3 (4.00-5.60) 04/18/20 08:15 Hgb 16.4 GM/dL (11.7-16.9) 04/18/20 08:15 Hct 48.1 % (35.4-49) 04/18/20 08:15 MCV 93.7 fl (80-96) 04/18/20 08:15 MCH 32.0 pg (25.7-33.7) 04/18/20 08:15 MCHC 34.1 g/dl (32.0-35.9) 04/18/20 08:15 RDW 14.6 % (11.9-15.9) 04/18/20 08:15 Plt Count 230 K/MM3 (134-434) D 04/18/20 08:15 MPV 8.0 fl (7.5-11.1) 04/18/20 08:15 Sodium 139 mmol/L (136-145) 04/18/20 08:15 Potassium 4.1 mmol/L (3.5-5.1) 04/18/20 08:15 Chloride 103 mmol/L (98-107) 04/18/20 08:15 Carbon Dioxide 24 mmol/L (21-32) 04/18/20 08:15 Anion Gap 12 MMOL/L (8-16) 04/18/20 08:15 BUN 19.6 mg/dL (7-18) H 04/18/20 08:15 Creatinine 1.8 mg/dL (0.55-1.3) H 04/18/20 08:15 Est GFR (CKD-EPI)AfAm 47.37 04/18/20 08:15 Est GFR (CKD-EPI)NonAf 40.87 04/18/20 08:15 POC Glucometer 157 UNITS (80-120) 04/19/20 05:45 Random Glucose 151 mg/dL (74-106) H 04/18/20 08:15 Calcium 8.8 mg/dL (8.5-10.1) 04/18/20 08:15 Total Bilirubin 1.4 mg/dL (0.2-1) H 04/18/20 08:15 AST 65 U/L (15-37) H 04/18/20 08:15 ALT 68 U/L (13-61) H 04/18/20 08:15 Alkaline Phosphatase 73 U/L (45-117) 04/18/20 08:15 Total Protein 6.3 g/dl (6.4-8.2) L 04/18/20 08:15 Albumin 3.1 g/dl (3.4-5.0) L 04/18/20 08:15 Syphilis Serology Non-reactive (NONREACTIVE) 04/18/20 08:15 COVID-19 (DAFNE) Not detected (Not Detected) 04/17/20 20:00 Labs noted with elevated BUN/CR. Assessment: 04/19/20 14:09 Alert and oriented x3, in no acute respiratory distress. Full ROM, ambulatory without assistance. Withdrawal symptoms. Elevated BUN/CR. Plan: Continue detox protocol. Encourage fluid intake. Repeat BMP in AM
[2020-04-19] MEDS ORDERED: MASKS NR ONE (15:40)
[2020-04-19] MEDS ORDERED: INSULIN SLIDING SCALE (NOVOLOG) 1 VIAL SQ ONE (17:02)
[2020-04-19] MEDS: MAG HYDROX/AL HYDROX/SIMETH 30 ML UNIT-DOSE CUP PO PRN (20:45)
[2020-04-19] MEDS: THIAMINE HCL 100 MG TABLET (FP) PO SCH (22:12)
[2020-04-19] MEDS: ATORVASTATIN CA 40 MG TABLET (FP) PO SCH (22:12)
[2020-04-19] MEDS: MELATONIN 5 MG TABLETS PO SCH (22:12)
[2020-04-20] MEDS ORDERED: chlordiazePOXIDE HCL 10 MG CAPSULE PO PRN
[2020-04-20] MEDS: chlordiazePOXIDE HCL 10 MG CAPSULE PO SCH ×4 (06:34→22:13)
[2020-04-20] MEDS: INSULIN (NOVOLOG) ASPART 100 UNITS/ML 10ML VIAL SQ SCH ×3 (06:36→17:25)
[2020-04-20] MEDS ORDERED: INSULIN SLIDING SCALE (NOVOLOG) 1 VIAL SQ ONE ×2 (06:51→16:32)
[2020-04-20] MEDS: MAG HYDROX/AL HYDROX/SIMETH 30 ML UNIT-DOSE CUP PO PRN ×2 (09:30→21:31)
[2020-04-20] MEDS: CLOPIDOGREL BISULFATE 75 MG TABLET (FP) PO SCH (10:02)
[2020-04-20] MEDS: ASPIRIN 81 MG CHEWABLE TABLETS PO SCH (10:02)
[2020-04-20] MEDS: LOSARTAN POTASSIUM 50 MG TABLET (FP) PO SCH (10:02)
[2020-04-20] MEDS: amLODIPine BESYLATE 10 MG TABLET (FP) PO SCH (10:02)
[2020-04-20] MEDS: NICOTINE 7 MG/24 HOURS TOPICAL PATCH TD SCH (10:02)
[2020-04-20] MEDS: GABAPENTIN 100 MG CAPSULE PO SCH ×2 (10:02→21:42)
[2020-04-20] MEDS: CILOSTAZOL 50 MG TABLET PO SCH ×2 (10:05→21:42)
[2020-04-20] MEDS: CYANOCOBALAMIN (VITAMIN B-12) 100 MCG TABLET PO SCH (10:05)
[2020-04-20] MEDS: PRENATAL VITAMINS W/ FOLIC ACID TABLET (FP) PO SCH (10:05)
[2020-04-20 10:30] LABS: BLOOD UREA NITROGEN 24.7 mg/dL (7-18); CALCIUM 8.3 mg/dL (8.5-10.1); CREATININE 1.7 mg/dL (0.55-1.3)
[2020-04-20] MEDS ORDERED: PANTOPRAZOLE 40 MG TABLET PO SCH (12:15)
[2020-04-20] MEDS: METHOCARBAMOL 500 MG TABLET PO PRN (13:04)
--- NOTE | 2020-04-20 15:21 | PN ---
S CIWA - CIWA Score Nausea/Vomitin-No Nausea/No Vomiting Muscle Tremors: 2 Anxiety: 2 Agitation: 2 Paroxysmal Sweats: 2 Orientation: 0-Oriented Tacttile Disturbances: 0-None Auditory Disturbances: 0-None Visual Disturbances: 0-None Headache: 0-None Present CIWA-Ar Total Score: 8 BHS Progress Note (SOAP) Subjective: Stomachache, stated he takes medication for GERD at home but doesn't remember the name or the dosage. Pt requesting to be discharged tomorrow and agrees with medication protocol adjustment. Objective: 04/20/20 15:17 Last Vital Signs Temp Pulse Resp BP Pulse Ox 97.5 F L 76 18 137/79 98 04/20/20 12:46 04/20/20 12:46 04/20/20 12:46 04/20/20 12:46 04/20/20 12:46 Elevated b/p: has htn, on med Laboratory Tests 04/17/20 04/17/20 04/18/20 20:00 20:24 06:11 WBC RBC Hgb Hct MCV MCH MCHC RDW Plt Count MPV Sodium Potassium Chloride Carbon Dioxide Anion Gap BUN Creatinine Est GFR (CKD-EPI)AfAm Est GFR (CKD-EPI)NonAf POC Glucometer 218 83 Random Glucose Calcium Total Bilirubin AST ALT Alkaline Phosphatase Total Protein Albumin Syphilis Serology COVID-19 (DAFNE) Not detected 04/18/20 04/18/20 04/18/20 08:15 08:15 08:15 WBC 6.3 RBC 5.14 Hgb 16.4 Hct 48.1 MCV 93.7 MCH 32.0 MCHC 34.1 RDW 14.6 Plt Count 230 D MPV 8.0 Sodium 139 Potassium 4.1 Chloride 103 Carbon Dioxide 24 Anion Gap 12 BUN 19.6 H Creatinine 1.8 H Est GFR (CKD-EPI)AfAm 47.37 Est GFR (CKD-EPI)NonAf 40.87 POC Glucometer Random Glucose 151 H Calcium 8.8 Total Bilirubin 1.4 H AST 65 H ALT 68 H Alkaline Phosphatase 73 Total Protein 6.3 L Albumin 3.1 L Syphilis Serology Non-reactive COVID-19 (DAFNE) 04/18/20 04/18/20 04/19/20 11:41 16:48 05:45 WBC RBC Hgb Hct MCV MCH MCHC RDW Plt Count MPV Sodium Potassium Chloride Carbon Dioxide Anion Gap BUN Creatinine Est GFR (CKD-EPI)AfAm Est GFR (CKD-EPI)NonAf POC Glucometer 130 280 157 Random Glucose Calcium Total Bilirubin AST ALT Alkaline Phosphatase Total Protein Albumin Syphilis Serology COVID-19 (DAFNE) 04/19/20 04/20/20 04/20/20 16:39 06:35 06:45 WBC RBC Hgb Hct MCV MCH MCHC RDW Plt Count MPV Sodium 141 Potassium 4.0 Chloride 108 H Carbon Dioxide 28 Anion Gap 5 L BUN 24.7 H Creatinine 1.7 H Est GFR (CKD-EPI)AfAm 50.75 Est GFR (CKD-EPI)NonAf 43.79 POC Glucometer 333 243 Random Glucose 266 H Calcium 8.3 L Total Bilirubin AST ALT Alkaline Phosphatase Total Protein Albumin Syphilis Serology COVID-19 (DAFNE) Labs reviewed: ALDA, hyperglycemia Assessment: 04/20/20 15:19 Withdrawal sxs Noted with ALDA vs CKD and hyperglycemia Plan: Continue detox Encourage PO water intake Patient scheduled for discharge tomorrow, he agreed to medication protocol adjustment Patient instructed to follow up with PCP within one week post discharge HTN: continue norvasc, monitor b/p ALDA vs CKD: encourage PO water intake, follow up with PCP within one week for management Hyperglycemia r/t DM: continue diabetic regimen GERD: start protonix 40mg PO daily
[2020-04-20] MEDS ORDERED: ATORVASTATIN CA 20 MG TABLET (FP) ONE (21:07)
[2020-04-20] MEDS: THIAMINE HCL 100 MG TABLET (FP) PO SCH (21:42)
[2020-04-20] MEDS: ATORVASTATIN CA 40 MG TABLET (FP) PO SCH (22:12)
[2020-04-20] MEDS: MELATONIN 5 MG TABLETS PO SCH (22:12)
[2020-04-21] MEDS ORDERED: chlordiazePOXIDE HCL 10 MG CAPSULE PO ONE (05:00)
[2020-04-21] MEDS ORDERED: chlordiazePOXIDE HCL 10 MG CAPSULE PO SCH (05:00)
[2020-04-21] MEDS: MAG HYDROX/AL HYDROX/SIMETH 30 ML UNIT-DOSE CUP PO PRN (05:30)
[2020-04-21 06:27] VITALS: BP 143/74; PULSE 66; TEMP 66
[2020-04-21] MEDS: INSULIN (NOVOLOG) ASPART 100 UNITS/ML 10ML VIAL SQ SCH (07:55)
--- NOTE | 2020-04-21 08:35 | DS ---
[facility] Detox Discharge Summary Admission Date: 04/17/20 Discharge Date: 04/21/20 - History Present History: Alcohol Dependence - Physical Exam Results Vital Signs: Vital Signs Temperature 66 F L 04/21/20 05:42 Pulse Rate 66 04/21/20 05:42 Respiratory Rate 16 04/21/20 05:42 Blood Pressure 143/74 04/21/20 05:42 O2 Sat by Pulse Oximetry (%) 95 04/21/20 05:42 Pertinent Admission Physical Exam Findings: Vital Signs Temperature 66 F L 04/21/20 05:42 Pulse Rate 66 04/21/20 05:42 Respiratory Rate 16 04/21/20 05:42 Blood Pressure 143/74 04/21/20 05:42 O2 Sat by Pulse Oximetry (%) 95 04/21/20 05:42 Laboratory Tests 04/17/20 04/17/20 04/18/20 20:00 20:24 06:11 WBC RBC Hgb Hct MCV MCH MCHC RDW Plt Count MPV Sodium Potassium Chloride Carbon Dioxide Anion Gap BUN Creatinine Est GFR (CKD-EPI)AfAm Est GFR (CKD-EPI)NonAf POC Glucometer 218 83 Random Glucose Calcium Total Bilirubin AST ALT Alkaline Phosphatase Total Protein Albumin Syphilis Serology COVID-19 (DAFNE) Not detected 04/18/20 04/18/20 04/18/20 08:15 08:15 08:15 WBC 6.3 RBC 5.14 Hgb 16.4 Hct 48.1 MCV 93.7 MCH 32.0 MCHC 34.1 RDW 14.6 Plt Count 230 D MPV 8.0 Sodium 139 Potassium 4.1 Chloride 103 Carbon Dioxide 24 Anion Gap 12 BUN 19.6 H Creatinine 1.8 H Est GFR (CKD-EPI)AfAm 47.37 Est GFR (CKD-EPI)NonAf 40.87 POC Glucometer Random Glucose 151 H Calcium 8.8 Total Bilirubin 1.4 H AST 65 H ALT 68 H Alkaline Phosphatase 73 Total Protein 6.3 L Albumin 3.1 L Syphilis Serology Non-reactive COVID-19 (DAFNE) 04/18/20 04/18/20 04/19/20 11:41 16:48 05:45 WBC RBC Hgb Hct MCV MCH MCHC RDW Plt Count MPV Sodium Potassium Chloride Carbon Dioxide Anion Gap BUN Creatinine Est GFR (CKD-EPI)AfAm Est GFR (CKD-EPI)NonAf POC Glucometer 130 280 157 Random Glucose Calcium Total Bilirubin AST ALT Alkaline Phosphatase Total Protein Albumin Syphilis Serology COVID-19 (DAFNE) 04/19/20 04/20/20 04/20/20 16:39 06:35 06:45 WBC RBC Hgb Hct MCV MCH MCHC RDW Plt Count MPV Sodium 141 Potassium 4.0 Chloride 108 H Carbon Dioxide 28 Anion Gap 5 L BUN 24.7 H Creatinine 1.7 H Est GFR (CKD-EPI)AfAm 50.75 Est GFR (CKD-EPI)NonAf 43.79 POC Glucometer 333 243 Random Glucose 266 H Calcium 8.3 L Total Bilirubin AST ALT Alkaline Phosphatase Total Protein Albumin Syphilis Serology COVID-19 (DAFNE) 04/21/20 05:31 WBC RBC Hgb Hct MCV MCH MCHC RDW Plt Count MPV Sodium Potassium Chloride Carbon Dioxide Anion Gap BUN Creatinine Est GFR (CKD-EPI)AfAm Est GFR (CKD-EPI)NonAf POC Glucometer 286 Random Glucose Calcium Total Bilirubin AST ALT Alkaline Phosphatase Total Protein Albumin Syphilis Serology COVID-19 (DAFNE) aaox3 ambulating no acute distress lungs CTA - Treatment Hospital Course: Detox Protocol Followed, Detoxed Safely, Responded well, Discharged Condition Good, Rehab Referral Accepted - Medication Discharge Medications: Ambulatory Orders Amlodipine Besylate [Norvasc -] 10 mg PO DAILY 10/17/14 Cilostazol [Pletal -] 50 mg PO BID 10/17/14 Clopidogrel Bisulfate [Clopidogrel] 75 mg PO DAILY 10/17/14 Aspirin [Children's Aspirin] 81 mg PO DAILY 09/30/16 Atorvastatin Ca [Lipitor] 40 mg PO HS 09/30/16 Cyanocobalamin [Vitamin B12 -] 100 mcg PO DAILY 09/30/16 Folic Acid 1 mg PO DAILY 09/30/16 Losartan Potassium 50 mg PO DAILY 09/30/16 Pyridoxine HCl (B-6) [Vitamin B6] 100 mg PO DAILY 09/30/16 Thiamine HCl [B-1] 100 mg PO DAILY 09/30/16 Gabapentin [Neurontin -] 100 mg PO BID 05/15/19 Insulin Glargine,Hum.rec.anlog [Basaglar Kwikpen U-100] 8 unit SQ BID MDD 30 morning and 40 evening 05/15/19 LORazepam [Lorazepam] 1 mg PO DAILY 10/15/19 Sertraline HCl 50 mg PO DAILY 10/15/19 - Diagnosis (1) Alcohol dependence with uncomplicated withdrawal Current Visit: Yes Status: Chronic (2) Alcohol-induced anxiety disorder Current Visit: No Status: Acute (3) Alcohol-induced mood disorder Current Visit: No Status: Acute (4) Alcohol-induced sleep disorder Current Visit: No Status: Acute (5) GI bleed Current Visit: No Status: Acute (6) Anxiety disorder Current Visit: No Status: Chronic (7) Depressive disorder Current Visit: No Status: Chronic (8) GERD (gastroesophageal reflux disease) Current Visit: No Status: Chronic Qualifiers: Esophagitis presence: without esophagitis Qualified Code(s): K21.9 - Gastro-esophageal reflux disease without esophagitis (9) Gallbladder disease Current Visit: No Status: Chronic (10) HLD (hyperlipidemia) Current Visit: No Status: Chronic (11) HTN (hypertension) Current Visit: No Status: Chronic Qualifiers: Hypertension type: essential hypertension Qualified Code(s): I10 - Essential (primary) hypertension (12) History of depression Current Visit: No Status: Chronic (13) Hypertriglyceridemia Current Visit: No Status: Chronic (14) Nicotine dependence Current Visit: Yes Status: Chronic Qualifiers: Nicotine product type: cigarettes Substance use status: uncomplicated Qualified Code(s): F17.210 - Nicotine dependence, cigarettes, uncomplicated (15) Type 2 diabetes mellitus Current Visit: Yes Status: Chronic Qualifiers: Diabetes mellitus moth exterminator insulin use: unspecified moth exterminator insulin use status Diabetes mellitus complication status: without complication Qualified Code(s): E11.9 - Type 2 diabetes mellitus without complications - AMA Did Patient Leave Against Medical Advice: No
[2020-04-22] MEDS ORDERED: chlordiazePOXIDE HCL 10 MG CAPSULE PO ONE (05:00)
== END 2020-04-21 08:57 | disposition home or self-care (01) | DRG 775 ==
LOC: YASAS 16:12 → Y6N 19:45
PROVIDERS: ADMIT Allergy & Immunology; ATTEND Allergy & Immunology
DX: F10.230 Alcohol dependence with withdrawal, uncomplicated (principal); F17.210 Nicotine dependence, cigarettes, uncomplicated; F10.280 Alcohol dependence with alcohol-induced anxiety disorder; F10.24 Alcohol dependence with alcohol-induced mood disorder; F10.282 Alcohol dependence with alcohol-induced sleep disorder; F32.9 Major depressive disorder, single episode, unspecified; F41.8 Other specified anxiety disorders; E78.5 Hyperlipidemia, unspecified; K21.9 Gastro-esophageal reflux disease without esophagitis; N17.9 Acute kidney failure, unspecified; I10 Essential (primary) hypertension; E11.65 Type 2 diabetes mellitus with hyperglycemia; I73.89 Other specified peripheral vascular diseases; Z79.4 Long term (current) use of insulin; Z87.19 Personal history of other diseases of the digestive system; Z95.828 Presence of other vascular implants and grafts; Z98.890 Other specified postprocedural states; Z91.048 Other nonmedicinal substance allergy status
CPT/HCPCS: 36415; 80048; 80053; 82962; 85027; 86780; 93005; 93010; Q0162; U0003

== ENCOUNTER 2021-03-26 10:21 | Inpatient (IN) | payer OTHER ==
[2021-03-26 11:17] VITALS: BMI 22.4
[2021-03-26] MEDS ORDERED: MENTHOL/PHENOL 1 EACH UD MM PRN (11:25)
[2021-03-26] MEDS ORDERED: NICOTINE POLACRILEX 2 MG GUM BUC PRN (11:25)
[2021-03-26] MEDS ORDERED: MAGNESIUM HYDROX 2400MG/30ML ORAL SUSPENSION 30 ML CUP PO PRN (11:25)
[2021-03-26] MEDS ORDERED: ACETAMINOPHEN 325 MG TABLET (FP) PO PRN ×2 (11:25)
[2021-03-26] MEDS ORDERED: IBUPROFEN 400 MG TABLET (FP) PO PRN (11:25)
[2021-03-26] MEDS ORDERED: MAG HYDROX/AL HYDROX/SIMETH 30 ML UNIT-DOSE CUP PO PRN (11:25)
[2021-03-26] MEDS ORDERED: METHOCARBAMOL 500 MG TABLET PO PRN (11:25)
[2021-03-26] MEDS ORDERED: MAGNESIUM CITRATE 300 ML BOTTLE PO PRN (11:25)
[2021-03-26] MEDS ORDERED: ONDANSETRON *ODT* 4 MG TABLET SL PRN (11:25)
[2021-03-26] MEDS ORDERED: BISMUTH SUBSALICYLATE 262 MG/15 ML BTL PO PRN (11:25)
[2021-03-26] MEDS: amLODIPine BESYLATE 10 MG TABLET (FP) PO SCH (12:43)
[2021-03-26] MEDS: NICOTINE 14 MG/24 HOURS TOPICAL PATCH TD SCH (12:43)
[2021-03-26] MEDS: ASPIRIN 81 MG CHEWABLE TABLETS PO SCH (12:43)
[2021-03-26] MEDS: LOSARTAN POTASSIUM 50 MG TABLET PO SCH (12:43)
[2021-03-26] MEDS: PRENATAL VITAMINS W/ FOLIC ACID TABLET (FP) PO SCH (12:43)
[2021-03-26] MEDS: LORazepam 1 MG TABLET PO PRN (12:44)
[2021-03-26] MEDS: CLOPIDOGREL BISULFATE 75 MG TABLET (FP) PO SCH (13:30)
[2021-03-26] MEDS: hydrOXYzine PAMOATE 25 MG CAPSULE (FP) PO SCH ×3 (13:30→22:03)
[2021-03-26 16:26] LABS: HEMATOCRIT 40.3 % (35.4-49); HEMOGLOBIN 13.6 GM/dL (11.7-16.9); MCH 29.3 pg (25.7-33.7); MCHC 33.7 g/dl (32.0-35.9); MEAN PLT VOLUME 7.7 fl (7.5-11.1); PLATELET COUNT 251 10^3/uL (134-434); RBC 4.63 M/mm3 (4.00-5.60); WHITE BLOOD COUNT 6.1 K/mm3 (4.0-10.0)
[2021-03-26 16:34] LABS: ALBUMIN 3.9 g/dl (3.4-5.0); BLOOD UREA NITROGEN 29.9 mg/dL (7-18)
[2021-03-26 16:37] LABS: CREATININE 1.8 mg/dL (0.55-1.3)
[2021-03-26 16:38] LABS: BILIRUBIN,TOTAL 0.5 mg/dL (0.2-1); TOT PROT 6.9 g/dl (6.4-8.2)
[2021-03-26 17:25] LABS: HIV INTERPRETATION NEGATIVE (NEGATIVE)
[2021-03-26] MEDS ORDERED: INSULIN SLIDING SCALE (NOVOLOG) 1 VIAL SQ ONE ×2 (17:42→22:01)
[2021-03-26] MEDS: LORazepam 2 MG TABLET PO SCH ×2 (17:47→22:02)
[2021-03-26] MEDS: INSULIN SLIDING SCALE (NOVOLOG) 1 VIAL SQ SCH ×2 (17:49→22:03)
[2021-03-26] MEDS: MELATONIN 5 MG TABLETS PO SCH (22:03)
[2021-03-26] MEDS: THIAMINE HCL 100 MG TABLET (FP) PO SCH (22:03)
[2021-03-26] MEDS: CILOSTAZOL 50 MG TABLET PO SCH (22:03)
[2021-03-26] MEDS: ATORVASTATIN CA 40 MG TABLET (FP) PO SCH (22:03)
[2021-03-27] MEDS: LORazepam 2 MG TABLET PO SCH ×4 (06:31→22:55)
[2021-03-27] MEDS: hydrOXYzine PAMOATE 25 MG CAPSULE (FP) PO SCH ×5 (06:31→22:54)
[2021-03-27] MEDS ORDERED: INSULIN SLIDING SCALE (NOVOLOG) 1 VIAL SQ ONE ×3 (06:32→17:29)
[2021-03-27] MEDS: INSULIN SLIDING SCALE (NOVOLOG) 1 VIAL SQ SCH ×4 (06:32→23:26)
[2021-03-27] MEDS: CLOPIDOGREL BISULFATE 75 MG TABLET (FP) PO SCH (10:46)
[2021-03-27] MEDS: LOSARTAN POTASSIUM 50 MG TABLET PO SCH (10:46)
[2021-03-27] MEDS: NICOTINE 14 MG/24 HOURS TOPICAL PATCH TD SCH (10:46)
[2021-03-27] MEDS: ASPIRIN 81 MG CHEWABLE TABLETS PO SCH (10:46)
[2021-03-27] MEDS: PRENATAL VITAMINS W/ FOLIC ACID TABLET (FP) PO SCH (10:46)
[2021-03-27] MEDS: amLODIPine BESYLATE 10 MG TABLET (FP) PO SCH (10:46)
[2021-03-27] MEDS: CILOSTAZOL 50 MG TABLET PO SCH ×2 (10:46→22:55)
[2021-03-27] MEDS: LORazepam 1 MG TABLET PO PRN (15:42)
[2021-03-27] MEDS: ATORVASTATIN CA 40 MG TABLET (FP) PO SCH (22:54)
[2021-03-27] MEDS: THIAMINE HCL 100 MG TABLET (FP) PO SCH (22:55)
[2021-03-27] MEDS: MELATONIN 5 MG TABLETS PO SCH (22:55)
[2021-03-28] MEDS: LORazepam 1 MG TABLET PO SCH ×4 (05:44→22:06)
[2021-03-28] MEDS: hydrOXYzine PAMOATE 25 MG CAPSULE (FP) PO SCH ×5 (05:45→22:06)
[2021-03-28] MEDS: INSULIN SLIDING SCALE (NOVOLOG) 1 VIAL SQ SCH ×4 (07:10→22:06)
[2021-03-28] MEDS: amLODIPine BESYLATE 10 MG TABLET (FP) PO SCH (10:43)
[2021-03-28] MEDS: CLOPIDOGREL BISULFATE 75 MG TABLET (FP) PO SCH (10:43)
[2021-03-28] MEDS: ASPIRIN 81 MG CHEWABLE TABLETS PO SCH (10:43)
[2021-03-28] MEDS: LOSARTAN POTASSIUM 50 MG TABLET PO SCH (10:43)
[2021-03-28] MEDS: NICOTINE 14 MG/24 HOURS TOPICAL PATCH TD SCH (10:44)
[2021-03-28] MEDS: CILOSTAZOL 50 MG TABLET PO SCH ×2 (10:44→22:08)
[2021-03-28] MEDS: PRENATAL VITAMINS W/ FOLIC ACID TABLET (FP) PO SCH (10:45)
[2021-03-28] MEDS: MELATONIN 5 MG TABLETS PO SCH (22:06)
[2021-03-28] MEDS: THIAMINE HCL 100 MG TABLET (FP) PO SCH (22:06)
[2021-03-28] MEDS: ATORVASTATIN CA 40 MG TABLET (FP) PO SCH (22:06)
[2021-03-29] MEDS ORDERED: LORazepam 0.5 MG TABLET PO PRN
[2021-03-29] MEDS: LORazepam 0.5 MG TABLET PO SCH ×4 (06:07→22:19)
[2021-03-29] MEDS: hydrOXYzine PAMOATE 25 MG CAPSULE (FP) PO SCH ×5 (06:08→22:18)
[2021-03-29] MEDS: INSULIN SLIDING SCALE (NOVOLOG) 1 VIAL SQ SCH ×4 (06:11→22:43)
[2021-03-29] MEDS: amLODIPine BESYLATE 10 MG TABLET (FP) PO SCH (10:27)
[2021-03-29] MEDS: PRENATAL VITAMINS W/ FOLIC ACID TABLET (FP) PO SCH (10:27)
[2021-03-29] MEDS: ASPIRIN 81 MG CHEWABLE TABLETS PO SCH (10:27)
[2021-03-29] MEDS: NICOTINE 14 MG/24 HOURS TOPICAL PATCH TD SCH (10:28)
[2021-03-29] MEDS: CILOSTAZOL 50 MG TABLET PO SCH ×2 (10:28→22:19)
[2021-03-29] MEDS: LOSARTAN POTASSIUM 50 MG TABLET PO SCH (10:28)
[2021-03-29] MEDS: CLOPIDOGREL BISULFATE 75 MG TABLET (FP) PO SCH (10:28)
[2021-03-29] MEDS: CALCIUM CARBONATE 650 MG TABLET PO SCH (22:18)
[2021-03-29] MEDS: ATORVASTATIN CA 40 MG TABLET (FP) PO SCH (22:18)
[2021-03-29] MEDS: THIAMINE HCL 100 MG TABLET (FP) PO SCH (22:18)
[2021-03-29] MEDS: MELATONIN 5 MG TABLETS PO SCH (22:18)
[2021-03-30] MEDS ORDERED: LORazepam 0.5 MG TABLET PO ONE (05:00)
[2021-03-30] MEDS: hydrOXYzine PAMOATE 25 MG CAPSULE (FP) PO SCH ×2 (05:54→09:44)
[2021-03-30] MEDS: INSULIN SLIDING SCALE (NOVOLOG) 1 VIAL SQ SCH (06:00)
[2021-03-30 09:39] VITALS: BP 128/83; PULSE 95; TEMP 96.9
[2021-03-30] MEDS: ASPIRIN 81 MG CHEWABLE TABLETS PO SCH (09:43)
[2021-03-30] MEDS: CALCIUM CARBONATE 650 MG TABLET PO SCH (09:43)
[2021-03-30] MEDS: NICOTINE 14 MG/24 HOURS TOPICAL PATCH TD SCH (09:44)
[2021-03-30] MEDS: LOSARTAN POTASSIUM 50 MG TABLET PO SCH (09:44)
[2021-03-30] MEDS: CILOSTAZOL 50 MG TABLET PO SCH (09:44)
[2021-03-30] MEDS: PRENATAL VITAMINS W/ FOLIC ACID TABLET (FP) PO SCH (09:44)
[2021-03-30] MEDS: CLOPIDOGREL BISULFATE 75 MG TABLET (FP) PO SCH (09:44)
[2021-03-30] MEDS: amLODIPine BESYLATE 10 MG TABLET (FP) PO SCH (09:44)
== END 2021-03-30 09:28 | disposition home or self-care (01) | DRG 775 ==
LOC: YASAS 10:21 → Y3N 11:36
PROVIDERS: ADMIT Allergy & Immunology; ATTEND Allergy & Immunology
PROC: HZ2ZZZZ Detoxification Services for Substance Abuse Treatment (ICD-10-PCS; principal; 2021-03-26)
DX: F10.230 Alcohol dependence with withdrawal, uncomplicated (principal); F17.210 Nicotine dependence, cigarettes, uncomplicated; F32.9 Major depressive disorder, single episode, unspecified; F41.9 Anxiety disorder, unspecified; K21.9 Gastro-esophageal reflux disease without esophagitis; E78.5 Hyperlipidemia, unspecified; E11.65 Type 2 diabetes mellitus with hyperglycemia; E83.51 Hypocalcemia; E87.1 Hypo-osmolality and hyponatremia; E11.22 Type 2 diabetes mellitus with diabetic chronic kidney disease; I12.9 Hypertensive chronic kidney disease with stage 1 through stage 4 chronic kidney disease, or unspecified chronic kidney disease; N18.9 Chronic kidney disease, unspecified
CPT/HCPCS: 36415; 80053; 82962; 85027; 86780; 87389; C9803; U0003; U0005

== ENCOUNTER 2021-12-07 08:35 | Inpatient (IN) | payer OTHER ==
[2021-12-07] MEDS ORDERED: BISMUTH SUBSALICYLATE 524 MG/30 ML PO PRN (09:02)
[2021-12-07] MEDS ORDERED: MENTHOL/PHENOL 1 EACH UD MM PRN (09:02)
[2021-12-07] MEDS ORDERED: ACETAMINOPHEN 325 MG TABLET (FP) PO PRN (09:02)
[2021-12-07] MEDS ORDERED: LOPERAMIDE HCL 2 MG CAPSULE PO PRN (09:02)
[2021-12-07] MEDS ORDERED: MAGNESIUM CITRATE 300 ML BOTTLE PO PRN (09:02)
[2021-12-07] MEDS ORDERED: ONDANSETRON *ODT* 4 MG TABLET SL PRN (09:02)
[2021-12-07] MEDS ORDERED: IBUPROFEN 400 MG TABLET (FP) PO PRN (09:02)
[2021-12-07] MEDS ORDERED: MAG HYDROX/AL HYDROX/SIMETH 30 ML UNIT-DOSE CUP PO PRN (09:02)
[2021-12-07] MEDS ORDERED: MAGNESIUM HYDROX 2400MG/30ML ORAL SUSPENSION 30 ML CUP PO PRN (09:02)
[2021-12-07] MEDS ORDERED: LORazepam 2 MG TABLET PO ONE (09:02)
[2021-12-07] MEDS ORDERED: LORazepam 1 MG TABLET PO PRN (09:02)
[2021-12-07 09:05] VITALS: BMI 21.2
[2021-12-07] MEDS: hydrOXYzine PAMOATE 25 MG CAPSULE (FP) PO SCH ×4 (09:34→22:58)
[2021-12-07] MEDS ORDERED: INSULIN (NOVOLOG) ASPART 100 UNITS/ML 10ML VIAL ONE (09:54)
[2021-12-07] MEDS: NICOTINE 14 MG/24 HOURS TOPICAL PATCH TD SCH (10:38)
[2021-12-07] MEDS: LORazepam 2 MG TABLET PO SCH ×3 (10:40→22:57)
[2021-12-07] MEDS: PRENATAL VITAMINS W/ FOLIC ACID TABLET (FP) PO SCH (10:41)
[2021-12-07] MEDS: INSULIN SLIDING SCALE (NOVOLOG) 1 VIAL SQ SCH ×2 (10:42→16:42)
[2021-12-07 15:07] LABS: HEMATOCRIT 53.8 % (35.4-49); HEMOGLOBIN 18.3 GM/dL (11.7-16.9); MCH 30.8 pg (25.7-33.7); MEAN CELL VOLUME 90.7 fl (80-96); MEAN PLT VOLUME 8.1 fl (7.5-11.1); PLATELET COUNT 254 10^3/uL (134-434); RBC 5.93 M/mm3 (4.00-5.60); RDW 17.5 % (11.9-15.9); WHITE BLOOD COUNT 6.8 K/mm3 (4.0-10.0)
[2021-12-07] MEDS: GABAPENTIN 300 MG CAPSULE PO SCH ×2 (15:48→22:58)
[2021-12-07] MEDS: CILOSTAZOL 50 MG TABLET PO SCH (15:48)
[2021-12-07] MEDS: LOSARTAN POTASSIUM 50 MG TABLET PO SCH (15:48)
[2021-12-07] MEDS: CLOPIDOGREL BISULFATE 75 MG TABLET (FP) PO SCH (15:48)
[2021-12-07 16:00] LABS: CALCIUM 9.2 mg/dL (8.5-10.1); CREATININE 2.1 mg/dL (0.55-1.3)
[2021-12-07 16:01] LABS: BLOOD UREA NITROGEN 26.2 mg/dL (7-18)
[2021-12-07 16:02] LABS: TOT PROT 7.4 g/dl (6.4-8.2)
[2021-12-07 16:07] LABS: BILIRUBIN,TOTAL 1.1 mg/dL (0.2-1)
[2021-12-07] MEDS ORDERED: INSULIN SLIDING SCALE (NOVOLOG) 1 VIAL SQ ONE (16:36)
[2021-12-07] MEDS: MELATONIN 5 MG TABLETS PO SCH (22:57)
[2021-12-07] MEDS: THIAMINE HCL 100 MG TABLET (FP) PO SCH (22:58)
[2021-12-08] MEDS: LORazepam 2 MG TABLET PO SCH ×4 (06:43→22:38)
[2021-12-08] MEDS: hydrOXYzine PAMOATE 25 MG CAPSULE (FP) PO SCH ×5 (06:43→22:38)
[2021-12-08] MEDS: GABAPENTIN 300 MG CAPSULE PO SCH ×3 (06:43→22:38)
[2021-12-08] MEDS: INSULIN SLIDING SCALE (NOVOLOG) 1 VIAL SQ SCH ×3 (07:06→17:55)
[2021-12-08] MEDS ORDERED: INSULIN SLIDING SCALE (NOVOLOG) 1 VIAL SQ ONE ×2 (07:24→12:09)
[2021-12-08] MEDS: TAMSULOSIN HCL 0.4 MG CAP PO SCH (07:32)
[2021-12-08] MEDS: CLOPIDOGREL BISULFATE 75 MG TABLET (FP) PO SCH (10:48)
[2021-12-08] MEDS: NICOTINE 14 MG/24 HOURS TOPICAL PATCH TD SCH (10:48)
[2021-12-08] MEDS: LOSARTAN POTASSIUM 50 MG TABLET PO SCH (10:48)
[2021-12-08] MEDS: CILOSTAZOL 50 MG TABLET PO SCH (10:49)
[2021-12-08] MEDS: PRENATAL VITAMINS W/ FOLIC ACID TABLET (FP) PO SCH (10:49)
[2021-12-08] MEDS: ESCITALOPRAM OXALATE 20 MG TABLET PO SCH (10:51)
[2021-12-08] MEDS: METHOCARBAMOL 500 MG TABLET PO PRN (17:56)
[2021-12-08] MEDS: THIAMINE HCL 100 MG TABLET (FP) PO SCH (22:38)
[2021-12-08] MEDS: MELATONIN 5 MG TABLETS PO SCH (22:38)
[2021-12-08] MEDS: ACETAMINOPHEN 325 MG TABLET (FP) PO PRN (22:40)
[2021-12-09] MEDS: GABAPENTIN 300 MG CAPSULE PO SCH ×3 (06:10→22:12)
[2021-12-09] MEDS: hydrOXYzine PAMOATE 25 MG CAPSULE (FP) PO SCH ×5 (06:10→22:12)
[2021-12-09] MEDS: LORazepam 1 MG TABLET PO SCH ×4 (06:15→22:12)
[2021-12-09] MEDS: INSULIN SLIDING SCALE (NOVOLOG) 1 VIAL SQ SCH ×3 (06:15→18:16)
[2021-12-09] MEDS: ESCITALOPRAM OXALATE 20 MG TABLET PO SCH (10:46)
[2021-12-09] MEDS: LOSARTAN POTASSIUM 50 MG TABLET PO SCH (10:46)
[2021-12-09] MEDS: CLOPIDOGREL BISULFATE 75 MG TABLET (FP) PO SCH (10:46)
[2021-12-09] MEDS: TAMSULOSIN HCL 0.4 MG CAP PO SCH (10:47)
[2021-12-09] MEDS: CILOSTAZOL 50 MG TABLET PO SCH (10:47)
[2021-12-09] MEDS: PRENATAL VITAMINS W/ FOLIC ACID TABLET (FP) PO SCH (10:47)
[2021-12-09] MEDS: NICOTINE 14 MG/24 HOURS TOPICAL PATCH TD SCH (10:47)
[2021-12-09] MEDS ORDERED: INSULIN SLIDING SCALE (NOVOLOG) 1 VIAL SQ ONE ×2 (12:16→17:24)
[2021-12-09] MEDS: METHOCARBAMOL 500 MG TABLET PO PRN (18:15)
[2021-12-09] MEDS: NICOTINE 10 MG CARTRIDGE (INHALER) IH PRN ×2 (18:48→22:58)
[2021-12-09] MEDS: MELATONIN 5 MG TABLETS PO SCH (22:12)
[2021-12-09] MEDS: THIAMINE HCL 100 MG TABLET (FP) PO SCH (22:12)
[2021-12-10] MEDS ORDERED: LORazepam 0.5 MG TABLET PO PRN
[2021-12-10] MEDS: GABAPENTIN 300 MG CAPSULE PO SCH ×3 (05:45→21:16)
[2021-12-10] MEDS: LORazepam 0.5 MG TABLET PO SCH ×4 (05:45→22:16)
[2021-12-10] MEDS: hydrOXYzine PAMOATE 25 MG CAPSULE (FP) PO SCH ×5 (05:45→21:14)
[2021-12-10] MEDS: INSULIN SLIDING SCALE (NOVOLOG) 1 VIAL SQ SCH ×3 (06:59→17:42)
[2021-12-10] MEDS: LOSARTAN POTASSIUM 50 MG TABLET PO SCH (10:19)
[2021-12-10] MEDS: TAMSULOSIN HCL 0.4 MG CAP PO SCH (10:19)
[2021-12-10] MEDS: ESCITALOPRAM OXALATE 20 MG TABLET PO SCH (10:19)
[2021-12-10] MEDS: NICOTINE 14 MG/24 HOURS TOPICAL PATCH TD SCH (10:20)
[2021-12-10] MEDS: CLOPIDOGREL BISULFATE 75 MG TABLET (FP) PO SCH (10:20)
[2021-12-10] MEDS: CILOSTAZOL 50 MG TABLET PO SCH (10:20)
[2021-12-10] MEDS: PRENATAL VITAMINS W/ FOLIC ACID TABLET (FP) PO SCH (10:21)
[2021-12-10] MEDS: NICOTINE 10 MG CARTRIDGE (INHALER) IH PRN (11:03)
[2021-12-10] MEDS ORDERED: INSULIN SLIDING SCALE (NOVOLOG) 1 VIAL SQ ONE (11:42)
[2021-12-10] MEDS: METHOCARBAMOL 500 MG TABLET PO PRN (17:39)
[2021-12-10] MEDS: ACETAMINOPHEN 325 MG TABLET (FP) PO PRN (17:40)
[2021-12-10] MEDS: THIAMINE HCL 100 MG TABLET (FP) PO SCH (21:15)
[2021-12-10] MEDS: MELATONIN 5 MG TABLETS PO SCH (21:15)
[2021-12-11] MEDS ORDERED: LORazepam 0.5 MG TABLET PO ONE (05:00)
[2021-12-11] MEDS: INSULIN SLIDING SCALE (NOVOLOG) 1 VIAL SQ SCH (06:37)
[2021-12-11] MEDS: GABAPENTIN 300 MG CAPSULE PO SCH (06:38)
[2021-12-11] MEDS: hydrOXYzine PAMOATE 25 MG CAPSULE (FP) PO SCH (06:38)
[2021-12-11 08:39] VITALS: BP 140/77; PULSE 82; TEMP 98.1
== END 2021-12-11 08:44 | disposition home or self-care (01) | DRG 775 ==
LOC: YASAS 08:35 → Y3N 09:15
PROVIDERS: ADMIT Allergy & Immunology; ATTEND Allergy & Immunology
PROC: HZ2ZZZZ Detoxification Services for Substance Abuse Treatment (ICD-10-PCS; principal; 2021-12-07)
DX: F10.230 Alcohol dependence with withdrawal, uncomplicated (principal); F17.210 Nicotine dependence, cigarettes, uncomplicated; F10.280 Alcohol dependence with alcohol-induced anxiety disorder; I25.10 Atherosclerotic heart disease of native coronary artery without angina pectoris; I10 Essential (primary) hypertension; E78.5 Hyperlipidemia, unspecified; E11.42 Type 2 diabetes mellitus with diabetic polyneuropathy; I73.9 Peripheral vascular disease, unspecified; Z79.4 Long term (current) use of insulin; K21.9 Gastro-esophageal reflux disease without esophagitis; M54.50 Low back pain, unspecified; G89.29 Other chronic pain; N40.0 Benign prostatic hyperplasia without lower urinary tract symptoms; Z95.1 Presence of aortocoronary bypass graft; Z95.5 Presence of coronary angioplasty implant and graft; Z95.820 Peripheral vascular angioplasty status with implants and grafts; Z87.19 Personal history of other diseases of the digestive system; Z88.8 Allergy status to other drugs, medicaments and biological substances
CPT/HCPCS: 36415; 80053; 82962; 85027; 86780; 87811; C9803; U0003; U0005

== ENCOUNTER 2023-05-16 11:09 | Inpatient (IN) | payer OTHER ==
[2023-05-16 11:35] VITALS: BMI 20.2
[2023-05-16] MEDS ORDERED: ACETAMINOPHEN 325 MG TABLET (FP) PO PRN (12:12)
[2023-05-16] MEDS ORDERED: MAG HYDROX/AL HYDROX/SIMETH 30 ML UNIT-DOSE CUP PO PRN (12:12)
[2023-05-16] MEDS ORDERED: COLLOIDAL OATMEAL 1 BAR EACH TP PRN (12:12)
[2023-05-16] MEDS ORDERED: NALOXONE HCL (KLOXXADO) 8 MG SPRAY NS PRN (12:12)
[2023-05-16] MEDS ORDERED: AMMONIUM LACTATE 12% LOTION 225 GM BOTTLE TP PRN (12:12)
[2023-05-16] MEDS ORDERED: BENZONATATE 200 MG CAPSULE PO PRN (12:12)
[2023-05-16] MEDS ORDERED: BENZOCAINE/MENTHOL (CHLORASEPTIC ) LOZENGE MM PRN (12:12)
[2023-05-16] MEDS ORDERED: IBUPROFEN 600 MG TABLET (FP) PO PRN (12:12)
[2023-05-16] MEDS ORDERED: IBUPROFEN 400 MG TABLET (FP) PO PRN (12:12)
[2023-05-16] MEDS ORDERED: MAGNESIUM HYDROX 2400MG/30ML ORAL SUSPENSION 30 ML CUP PO PRN (12:12)
[2023-05-16] MEDS ORDERED: guaiFENesin 600 MG TABLET.ER (FP) PO PRN (12:12)
[2023-05-16] MEDS ORDERED: POLYETHYLENE GLYCOL (HEALTHYLAX) 3350 17 GM PACKET PO PRN (12:12)
[2023-05-16] MEDS ORDERED: NALOXONE HCL 0.4 MG/ML VIAL IM PRN (12:12)
[2023-05-16] MEDS ORDERED: PATIENT'S OWN MEDICATION (NON-FORMULARY) (Insulin Glargine,Hum.Rec.Anlog [Basaglar Kwikpen SQ SCH ×2 (12:30→14:30)
[2023-05-16] MEDS ORDERED: cloNIDine HCL 0.1 MG TABLET PO ONE (12:33)
[2023-05-16] MEDS: ASPIRIN 81 MG CHEWABLE TABLETS PO SCH (14:36)
[2023-05-16] MEDS ORDERED: INSULIN (NOVOLOG) ASPART 100 UNITS/ML 10ML VIAL SQ ONE ×2 (14:41→23:35)
[2023-05-16] MEDS ORDERED: INSULIN (NOVOLOG) ASPART 100 UNITS/ML 10ML VIAL ONE (14:49)
[2023-05-16] MEDS ORDERED: INSULIN SLIDING SCALE (NOVOLOG) 1 VIAL SQ SCH (16:30)
[2023-05-16] MEDS: INSULIN SLIDING SCALE (NOVOLOG) 1 VIAL SQ SCH (18:25)
[2023-05-16 18:41] LABS: HEMATOCRIT 56.4 % (35.4-49); HEMOGLOBIN 19.1 GM/dL (11.7-16.9); MCH 30.6 pg (25.7-33.7); MCHC 33.8 g/dl (32.0-35.9); MEAN CELL VOLUME 90.3 fl (80-96); PLATELET COUNT 175 10^3/uL (134-434); POTASSIUM 4.1 mmol/L (3.5-5.1); RBC 6.24 M/mm3 (4.00-5.60); RDW 13.6 % (11.9-15.9)
[2023-05-16 18:49] LABS: ALBUMIN 4.3 g/dl (3.4-5.0); BLOOD UREA NITROGEN 69.3 mg/dL (7-18); CALCIUM 9.8 mg/dL (8.5-10.1)
[2023-05-16 18:51] LABS: CREATININE 2.9 mg/dL (0.55-1.3)
[2023-05-16 18:52] LABS: TOT PROT 7.9 g/dl (6.4-8.2)
[2023-05-16 18:53] LABS: BILIRUBIN,TOTAL 0.4 mg/dL (0.2-1)
[2023-05-16] MEDS: ROSUVASTATIN CA 20 MG TABLET PO SCH (21:52)
[2023-05-16] MEDS: OMEGA-3 ACID ETHYL ESTERS (FATTY-ACIDS) 1 GM CAPSULE (FP) PO SCH (21:52)
[2023-05-16] MEDS: GABAPENTIN 300 MG CAPSULE PO SCH (21:52)
[2023-05-16] MEDS: MELATONIN 5 MG TABLETS PO SCH (21:52)
[2023-05-16] MEDS: THIAMINE HCL 100 MG TABLET (FP) PO SCH (21:53)
[2023-05-16] MEDS: CILOSTAZOL 50 MG TABLET PO SCH (21:54)
[2023-05-17] MEDS: GABAPENTIN 300 MG CAPSULE PO SCH ×3 (06:40→21:33)
[2023-05-17] MEDS ORDERED: INSULIN (NOVOLOG) ASPART 100 UNITS/ML 10ML VIAL ONE (08:04)
[2023-05-17] MEDS: TAMSULOSIN HCL 0.4 MG CAP PO SCH (09:37)
[2023-05-17] MEDS ORDERED: CLOPIDOGREL BISULFATE 75 MG TABLET (FP) PO SCH (10:00)
[2023-05-17] MEDS: NICOTINE 14 MG/24 HOURS TOPICAL PATCH TD SCH (10:04)
[2023-05-17] MEDS: ASPIRIN 81 MG CHEWABLE TABLETS PO SCH (10:04)
[2023-05-17] MEDS: PANTOPRAZOLE 40 MG TABLET PO SCH (10:04)
[2023-05-17] MEDS: PRENATAL VITAMINS W/ FOLIC ACID TABLET (FP) PO SCH (10:04)
[2023-05-17] MEDS: CILOSTAZOL 50 MG TABLET PO SCH ×2 (10:05→21:34)
[2023-05-17] MEDS: EZETIMIBE 10 MG TABLET (FP) PO SCH (11:59)
[2023-05-17] MEDS: OMEGA-3 ACID ETHYL ESTERS (FATTY-ACIDS) 1 GM CAPSULE (FP) PO SCH ×2 (11:59→21:33)
[2023-05-17] MEDS: ESCITALOPRAM OXALATE 20 MG TABLET PO SCH (12:00)
[2023-05-17] MEDS: INSULIN SLIDING SCALE (NOVOLOG) 1 VIAL SQ SCH ×4 (12:16→16:49)
[2023-05-17] MEDS: DAPAGLIFLOZIN PROPANEDIOL 10 MG TABLET PO SCH (13:17)
[2023-05-17] MEDS: PATIENT'S OWN MEDICATION (NON-FORMULARY) (Dulaglutide [Trulicity] 1.5 MG/0.5 ML Pen.Injctr SQ SCH (13:18)
[2023-05-17] MEDS: PATIENT'S OWN MEDICATION (NON-FORMULARY) (Insulin Glargine,Hum.Rec.Anlog [Basaglar Kwikpen SQ SCH ×2 (14:46→21:33)
[2023-05-17] MEDS: NICOTINE POLACRILEX 2 MG GUM BUC PRN (14:47)
[2023-05-17] MEDS: CHOLECALCIFEROL (VIT D3) 1,000 UNIT (25 MCG) TABLET PO SCH (16:56)
[2023-05-17 17:36] LABS: EPI CELLS 5 /uL (0-25.1); HYALINE CASTS 0 /uL (0-3.1); PH,URINE 5.5 (5.0-8.0); URINE APPEARANCE CLEAR; URINE BACTERIA 7 /uL (0-1359); URINE BILIRUBIN NEGATIVE (NEGATIVE); URINE COLOR YELLOW; URINE GLUCOSE (UA) 3+ (NEGATIVE); URINE KETONE NEGATIVE (NEGATIVE); URINE LEUK ESTERASE NEGATIVE (NEGATIVE); URINE NITRITE NEGATIVE (NEGATIVE); URINE PROTEIN 2+ (NEGATIVE); URINE RBC 1 /uL (0-23.9); URINE UROBILINOGEN 0.2 mg/dL (0.2-1.0); URINE WBC 2 /uL (0-25.8)
[2023-05-17] MEDS: MELATONIN 5 MG TABLETS PO SCH (21:33)
[2023-05-17] MEDS: ROSUVASTATIN CA 20 MG TABLET PO SCH (21:33)
[2023-05-17] MEDS: THIAMINE HCL 100 MG TABLET (FP) PO SCH (21:33)
[2023-05-18] MEDS: GABAPENTIN 300 MG CAPSULE PO SCH ×3 (06:16→21:34)
[2023-05-18] MEDS ORDERED: INSULIN (NOVOLOG) ASPART 100 UNITS/ML 10ML VIAL ONE ×2 (06:16→10:27)
[2023-05-18] MEDS: INSULIN SLIDING SCALE (NOVOLOG) 1 VIAL SQ SCH ×3 (06:17→16:55)
[2023-05-18] MEDS: TAMSULOSIN HCL 0.4 MG CAP PO SCH (07:30)
[2023-05-18] MEDS: PRENATAL VITAMINS W/ FOLIC ACID TABLET (FP) PO SCH (10:04)
[2023-05-18] MEDS: ASPIRIN 81 MG CHEWABLE TABLETS PO SCH (10:04)
[2023-05-18] MEDS: OMEGA-3 ACID ETHYL ESTERS (FATTY-ACIDS) 1 GM CAPSULE (FP) PO SCH ×2 (10:05→21:33)
[2023-05-18] MEDS: EZETIMIBE 10 MG TABLET (FP) PO SCH (10:05)
[2023-05-18] MEDS: DAPAGLIFLOZIN PROPANEDIOL 10 MG TABLET PO SCH (10:05)
[2023-05-18] MEDS: CHOLECALCIFEROL (VIT D3) 1,000 UNIT (25 MCG) TABLET PO SCH (10:06)
[2023-05-18] MEDS: PANTOPRAZOLE 40 MG TABLET PO SCH (10:06)
[2023-05-18] MEDS: ESCITALOPRAM OXALATE 20 MG TABLET PO SCH (10:06)
[2023-05-18] MEDS: CILOSTAZOL 50 MG TABLET PO SCH ×2 (10:07→21:34)
[2023-05-18] MEDS: NICOTINE 14 MG/24 HOURS TOPICAL PATCH TD SCH (10:07)
[2023-05-18] MEDS: PATIENT'S OWN MEDICATION (NON-FORMULARY) (Insulin Glargine,Hum.Rec.Anlog [Basaglar Kwikpen SQ SCH ×2 (10:12→21:37)
[2023-05-18] MEDS: INSULIN (NOVOLOG) ASPART 100 UNITS/ML 10ML VIAL SQ SCH (16:55)
[2023-05-18] MEDS: cloNIDine HCL 0.1 MG TABLET PO PRN (18:21)
[2023-05-18] MEDS: NICOTINE POLACRILEX 2 MG GUM BUC PRN (19:08)
[2023-05-18] MEDS: THIAMINE HCL 100 MG TABLET (FP) PO SCH (21:34)
[2023-05-18] MEDS: ROSUVASTATIN CA 10 MG TABLET PO SCH (21:36)
[2023-05-18] MEDS: MELATONIN 5 MG TABLETS PO SCH (21:39)
[2023-05-19] MEDS: LOPERAMIDE HCL 2 MG CAPSULE PO PRN (02:46)
[2023-05-19] MEDS: GABAPENTIN 300 MG CAPSULE PO SCH ×3 (06:16→21:18)
[2023-05-19] MEDS: INSULIN (NOVOLOG) ASPART 100 UNITS/ML 10ML VIAL SQ SCH ×3 (07:42→16:50)
[2023-05-19] MEDS: INSULIN SLIDING SCALE (NOVOLOG) 1 VIAL SQ SCH ×3 (07:44→16:50)
[2023-05-19] MEDS: TAMSULOSIN HCL 0.4 MG CAP PO SCH (10:21)
[2023-05-19] MEDS: ASPIRIN 81 MG CHEWABLE TABLETS PO SCH (10:21)
[2023-05-19] MEDS: ESCITALOPRAM OXALATE 20 MG TABLET PO SCH (10:21)
[2023-05-19] MEDS: PANTOPRAZOLE 40 MG TABLET PO SCH (10:21)
[2023-05-19] MEDS: CILOSTAZOL 50 MG TABLET PO SCH ×2 (10:22→21:19)
[2023-05-19] MEDS: DAPAGLIFLOZIN PROPANEDIOL 10 MG TABLET PO SCH (10:23)
[2023-05-19] MEDS: PATIENT'S OWN MEDICATION (NON-FORMULARY) (Insulin Glargine,Hum.Rec.Anlog [Basaglar Kwikpen SQ SCH ×2 (10:24→21:19)
[2023-05-19] MEDS: OMEGA-3 ACID ETHYL ESTERS (FATTY-ACIDS) 1 GM CAPSULE (FP) PO SCH ×2 (10:28→21:18)
[2023-05-19] MEDS: CHOLECALCIFEROL (VIT D3) 1,000 UNIT (25 MCG) TABLET PO SCH (10:28)
[2023-05-19] MEDS: EZETIMIBE 10 MG TABLET (FP) PO SCH (10:28)
[2023-05-19] MEDS: NICOTINE 14 MG/24 HOURS TOPICAL PATCH TD SCH (10:29)
[2023-05-19] MEDS: NICOTINE POLACRILEX 2 MG GUM BUC PRN (12:26)
[2023-05-19] MEDS: LIDOCAINE 5% TOPICAL PATCH TP SCH (14:37)
[2023-05-19] MEDS: MELATONIN 5 MG TABLETS PO SCH (21:18)
[2023-05-19] MEDS: THIAMINE HCL 100 MG TABLET (FP) PO SCH (21:18)
[2023-05-19] MEDS: ROSUVASTATIN CA 10 MG TABLET PO SCH (21:18)
[2023-05-19] MEDS: LIDOCAINE PATCH REMOVAL MC SCH (21:20)
[2023-05-20] MEDS: GABAPENTIN 300 MG CAPSULE PO SCH ×3 (06:30→21:21)
[2023-05-20] MEDS ORDERED: INSULIN (NOVOLOG) ASPART 100 UNITS/ML 10ML VIAL ONE ×3 (06:32→12:14)
[2023-05-20] MEDS: INSULIN SLIDING SCALE (NOVOLOG) 1 VIAL SQ SCH ×3 (06:33→16:55)
[2023-05-20] MEDS: INSULIN (NOVOLOG) ASPART 100 UNITS/ML 10ML VIAL SQ SCH ×3 (07:51→16:54)
[2023-05-20] MEDS: ESCITALOPRAM OXALATE 20 MG TABLET PO SCH (10:29)
[2023-05-20] MEDS: ASPIRIN 81 MG CHEWABLE TABLETS PO SCH (10:29)
[2023-05-20] MEDS: TAMSULOSIN HCL 0.4 MG CAP PO SCH (10:29)
[2023-05-20] MEDS: PANTOPRAZOLE 40 MG TABLET PO SCH (10:29)
[2023-05-20] MEDS: LIDOCAINE 5% TOPICAL PATCH TP SCH (10:30)
[2023-05-20] MEDS: NICOTINE 14 MG/24 HOURS TOPICAL PATCH TD SCH (10:30)
[2023-05-20] MEDS: OMEGA-3 ACID ETHYL ESTERS (FATTY-ACIDS) 1 GM CAPSULE (FP) PO SCH ×2 (10:31→21:30)
[2023-05-20] MEDS: DAPAGLIFLOZIN PROPANEDIOL 10 MG TABLET PO SCH (10:32)
[2023-05-20] MEDS: CILOSTAZOL 50 MG TABLET PO SCH ×2 (10:33→21:32)
[2023-05-20] MEDS: CHOLECALCIFEROL (VIT D3) 1,000 UNIT (25 MCG) TABLET PO SCH (10:34)
[2023-05-20] MEDS: EZETIMIBE 10 MG TABLET (FP) PO SCH (10:34)
[2023-05-20] MEDS: PATIENT'S OWN MEDICATION (NON-FORMULARY) (Insulin Glargine,Hum.Rec.Anlog [Basaglar Kwikpen SQ SCH ×2 (10:42→21:29)
[2023-05-20] MEDS: NICOTINE POLACRILEX 2 MG GUM BUC PRN ×2 (13:27→18:44)
[2023-05-20] MEDS: ROSUVASTATIN CA 10 MG TABLET PO SCH (21:21)
[2023-05-20] MEDS: THIAMINE HCL 100 MG TABLET (FP) PO SCH (21:27)
[2023-05-20] MEDS: MELATONIN 5 MG TABLETS PO SCH (21:28)
[2023-05-20] MEDS: LIDOCAINE PATCH REMOVAL MC SCH (21:29)
[2023-05-21] MEDS: GABAPENTIN 300 MG CAPSULE PO SCH ×3 (06:33→21:07)
[2023-05-21] MEDS: INSULIN (NOVOLOG) ASPART 100 UNITS/ML 10ML VIAL SQ SCH ×3 (06:35→16:42)
[2023-05-21] MEDS ORDERED: INSULIN (NOVOLOG) ASPART 100 UNITS/ML 10ML VIAL ONE (08:13)
[2023-05-21] MEDS: INSULIN SLIDING SCALE (NOVOLOG) 1 VIAL SQ SCH ×3 (08:14→16:41)
[2023-05-21] MEDS: ESCITALOPRAM OXALATE 20 MG TABLET PO SCH (10:12)
[2023-05-21] MEDS: TAMSULOSIN HCL 0.4 MG CAP PO SCH (10:12)
[2023-05-21] MEDS: PANTOPRAZOLE 40 MG TABLET PO SCH (10:12)
[2023-05-21] MEDS: ASPIRIN 81 MG CHEWABLE TABLETS PO SCH (10:12)
[2023-05-21] MEDS: OMEGA-3 ACID ETHYL ESTERS (FATTY-ACIDS) 1 GM CAPSULE (FP) PO SCH ×2 (10:12→21:06)
[2023-05-21] MEDS: CHOLECALCIFEROL (VIT D3) 1,000 UNIT (25 MCG) TABLET PO SCH (10:12)
[2023-05-21] MEDS: LIDOCAINE 5% TOPICAL PATCH TP SCH (10:13)
[2023-05-21] MEDS: CILOSTAZOL 50 MG TABLET PO SCH ×2 (10:14→21:06)
[2023-05-21] MEDS: NICOTINE 14 MG/24 HOURS TOPICAL PATCH TD SCH (10:14)
[2023-05-21] MEDS: EZETIMIBE 10 MG TABLET (FP) PO SCH (10:15)
[2023-05-21] MEDS: DAPAGLIFLOZIN PROPANEDIOL 10 MG TABLET PO SCH (10:16)
[2023-05-21] MEDS: PATIENT'S OWN MEDICATION (NON-FORMULARY) (Insulin Glargine,Hum.Rec.Anlog [Basaglar Kwikpen SQ SCH ×2 (10:32→21:09)
[2023-05-21] MEDS: NICOTINE POLACRILEX 2 MG GUM BUC PRN ×2 (10:56→18:07)
[2023-05-21] MEDS: ROSUVASTATIN CA 10 MG TABLET PO SCH (21:06)
[2023-05-21] MEDS: THIAMINE HCL 100 MG TABLET (FP) PO SCH (21:07)
[2023-05-21] MEDS: MELATONIN 5 MG TABLETS PO SCH (21:07)
[2023-05-21] MEDS: LIDOCAINE PATCH REMOVAL MC SCH (22:01)
[2023-05-22] MEDS: GABAPENTIN 300 MG CAPSULE PO SCH ×3 (06:21→21:25)
[2023-05-22] MEDS ORDERED: INSULIN (NOVOLOG) ASPART 100 UNITS/ML 10ML VIAL ONE (07:30)
[2023-05-22] MEDS: INSULIN SLIDING SCALE (NOVOLOG) 1 VIAL SQ SCH ×3 (08:23→16:40)
[2023-05-22] MEDS: INSULIN (NOVOLOG) ASPART 100 UNITS/ML 10ML VIAL SQ SCH ×3 (08:23→16:40)
[2023-05-22] MEDS: PATIENT'S OWN MEDICATION (NON-FORMULARY) (Insulin Glargine,Hum.Rec.Anlog [Basaglar Kwikpen SQ SCH ×2 (10:06→21:29)
[2023-05-22] MEDS: ESCITALOPRAM OXALATE 20 MG TABLET PO SCH (10:08)
[2023-05-22] MEDS: OMEGA-3 ACID ETHYL ESTERS (FATTY-ACIDS) 1 GM CAPSULE (FP) PO SCH ×2 (10:08→21:26)
[2023-05-22] MEDS: LIDOCAINE 5% TOPICAL PATCH TP SCH (10:10)
[2023-05-22] MEDS: ASPIRIN 81 MG CHEWABLE TABLETS PO SCH (10:10)
[2023-05-22] MEDS: DAPAGLIFLOZIN PROPANEDIOL 10 MG TABLET PO SCH (10:10)
[2023-05-22] MEDS: EZETIMIBE 10 MG TABLET (FP) PO SCH (10:10)
[2023-05-22] MEDS: NICOTINE 14 MG/24 HOURS TOPICAL PATCH TD SCH (10:10)
[2023-05-22] MEDS: CHOLECALCIFEROL (VIT D3) 1,000 UNIT (25 MCG) TABLET PO SCH (10:11)
[2023-05-22] MEDS: CILOSTAZOL 50 MG TABLET PO SCH ×2 (10:11→21:26)
[2023-05-22] MEDS: PANTOPRAZOLE 40 MG TABLET PO SCH (10:11)
[2023-05-22] MEDS: TAMSULOSIN HCL 0.4 MG CAP PO SCH (10:12)
[2023-05-22] MEDS: NICOTINE POLACRILEX 2 MG GUM BUC PRN (18:30)
[2023-05-22] MEDS: MELATONIN 5 MG TABLETS PO SCH (21:25)
[2023-05-22] MEDS: ROSUVASTATIN CA 10 MG TABLET PO SCH (21:25)
[2023-05-22] MEDS: THIAMINE HCL 100 MG TABLET (FP) PO SCH (21:26)
[2023-05-22] MEDS: LIDOCAINE PATCH REMOVAL MC SCH (21:26)
[2023-05-23] MEDS: GABAPENTIN 300 MG CAPSULE PO SCH ×3 (06:56→21:36)
[2023-05-23] MEDS: INSULIN SLIDING SCALE (NOVOLOG) 1 VIAL SQ SCH ×3 (06:56→17:44)
[2023-05-23] MEDS: INSULIN (NOVOLOG) ASPART 100 UNITS/ML 10ML VIAL SQ SCH ×3 (06:58→17:40)
[2023-05-23] MEDS: ASPIRIN 81 MG CHEWABLE TABLETS PO SCH (09:48)
[2023-05-23] MEDS: PANTOPRAZOLE 40 MG TABLET PO SCH (09:49)
[2023-05-23] MEDS: ESCITALOPRAM OXALATE 20 MG TABLET PO SCH (09:49)
[2023-05-23] MEDS: TAMSULOSIN HCL 0.4 MG CAP PO SCH (09:49)
[2023-05-23] MEDS: CHOLECALCIFEROL (VIT D3) 1,000 UNIT (25 MCG) TABLET PO SCH (09:49)
[2023-05-23] MEDS: CILOSTAZOL 50 MG TABLET PO SCH ×2 (09:49→21:36)
[2023-05-23] MEDS: LIDOCAINE 5% TOPICAL PATCH TP SCH (09:50)
[2023-05-23] MEDS: DAPAGLIFLOZIN PROPANEDIOL 10 MG TABLET PO SCH (09:50)
[2023-05-23] MEDS: OMEGA-3 ACID ETHYL ESTERS (FATTY-ACIDS) 1 GM CAPSULE (FP) PO SCH ×2 (09:50→21:37)
[2023-05-23] MEDS: NICOTINE 14 MG/24 HOURS TOPICAL PATCH TD SCH (09:51)
[2023-05-23] MEDS: EZETIMIBE 10 MG TABLET (FP) PO SCH (09:51)
[2023-05-23] MEDS: PATIENT'S OWN MEDICATION (NON-FORMULARY) (Insulin Glargine,Hum.Rec.Anlog [Basaglar Kwikpen SQ SCH ×2 (09:58→21:40)
[2023-05-23] MEDS: LOPERAMIDE HCL 2 MG CAPSULE PO PRN (10:25)
[2023-05-23] MEDS ORDERED: INSULIN (NOVOLOG) ASPART 100 UNITS/ML 10ML VIAL ONE ×2 (17:47→22:16)
[2023-05-23] MEDS: THIAMINE HCL 100 MG TABLET (FP) PO SCH (21:35)
[2023-05-23] MEDS: MELATONIN 5 MG TABLETS PO SCH (21:35)
[2023-05-23] MEDS: ROSUVASTATIN CA 10 MG TABLET PO SCH (21:36)
[2023-05-23] MEDS: LIDOCAINE PATCH REMOVAL MC SCH (21:37)
[2023-05-24] MEDS: INSULIN (NOVOLOG) ASPART 100 UNITS/ML 10ML VIAL SQ SCH ×3 (06:24→16:33)
[2023-05-24] MEDS: GABAPENTIN 300 MG CAPSULE PO SCH ×3 (06:24→21:25)
[2023-05-24] MEDS: INSULIN SLIDING SCALE (NOVOLOG) 1 VIAL SQ SCH ×3 (07:41→16:32)
[2023-05-24] MEDS: ESCITALOPRAM OXALATE 20 MG TABLET PO SCH (09:57)
[2023-05-24] MEDS: SIMETHICONE 80 MG TAB.CHEW (FP) PO PRN ×3 (09:57→20:24)
[2023-05-24] MEDS: ASPIRIN 81 MG CHEWABLE TABLETS PO SCH (09:57)
[2023-05-24] MEDS: TAMSULOSIN HCL 0.4 MG CAP PO SCH (09:57)
[2023-05-24] MEDS: PANTOPRAZOLE 40 MG TABLET PO SCH (09:57)
[2023-05-24] MEDS: OMEGA-3 ACID ETHYL ESTERS (FATTY-ACIDS) 1 GM CAPSULE (FP) PO SCH ×2 (09:58→21:25)
[2023-05-24] MEDS: CILOSTAZOL 50 MG TABLET PO SCH ×2 (09:58→21:25)
[2023-05-24] MEDS: CHOLECALCIFEROL (VIT D3) 1,000 UNIT (25 MCG) TABLET PO SCH (09:58)
[2023-05-24] MEDS: EZETIMIBE 10 MG TABLET (FP) PO SCH (09:59)
[2023-05-24] MEDS: LIDOCAINE 5% TOPICAL PATCH TP SCH (09:59)
[2023-05-24] MEDS: DAPAGLIFLOZIN PROPANEDIOL 10 MG TABLET PO SCH (09:59)
[2023-05-24] MEDS: NICOTINE 14 MG/24 HOURS TOPICAL PATCH TD SCH (10:00)
[2023-05-24] MEDS: PATIENT'S OWN MEDICATION (NON-FORMULARY) (Dulaglutide [Trulicity] 1.5 MG/0.5 ML Pen.Injctr SQ SCH (10:04)
[2023-05-24] MEDS: PATIENT'S OWN MEDICATION (NON-FORMULARY) (Insulin Glargine,Hum.Rec.Anlog [Basaglar Kwikpen SQ SCH ×2 (10:07→21:29)
[2023-05-24] MEDS ORDERED: INSULIN (NOVOLOG) ASPART 100 UNITS/ML 10ML VIAL ONE (12:16)
[2023-05-24] MEDS: MELATONIN 5 MG TABLETS PO SCH (21:25)
[2023-05-24] MEDS: ROSUVASTATIN CA 10 MG TABLET PO SCH (21:25)
[2023-05-24] MEDS: THIAMINE HCL 100 MG TABLET (FP) PO SCH (21:25)
[2023-05-24] MEDS: cloNIDine HCL 0.1 MG TABLET PO PRN (21:25)
[2023-05-24] MEDS: LIDOCAINE PATCH REMOVAL MC SCH (21:29)
[2023-05-25] MEDS: LOPERAMIDE HCL 2 MG CAPSULE PO PRN ×2 (01:30→11:32)
[2023-05-25] MEDS: GABAPENTIN 300 MG CAPSULE PO SCH ×3 (06:30→21:39)
[2023-05-25] MEDS: INSULIN (NOVOLOG) ASPART 100 UNITS/ML 10ML VIAL SQ SCH ×3 (07:20→16:36)
[2023-05-25] MEDS: INSULIN SLIDING SCALE (NOVOLOG) 1 VIAL SQ SCH ×3 (07:22→16:36)
[2023-05-25] MEDS: ASPIRIN 81 MG CHEWABLE TABLETS PO SCH (10:00)
[2023-05-25] MEDS: TAMSULOSIN HCL 0.4 MG CAP PO SCH (10:00)
[2023-05-25] MEDS: OMEGA-3 ACID ETHYL ESTERS (FATTY-ACIDS) 1 GM CAPSULE (FP) PO SCH ×2 (10:00→21:39)
[2023-05-25] MEDS: CILOSTAZOL 50 MG TABLET PO SCH ×2 (10:00→21:39)
[2023-05-25] MEDS: PANTOPRAZOLE 40 MG TABLET PO SCH (10:00)
[2023-05-25] MEDS: ESCITALOPRAM OXALATE 20 MG TABLET PO SCH (10:00)
[2023-05-25] MEDS: CHOLECALCIFEROL (VIT D3) 1,000 UNIT (25 MCG) TABLET PO SCH (10:00)
[2023-05-25] MEDS: DAPAGLIFLOZIN PROPANEDIOL 10 MG TABLET PO SCH (10:01)
[2023-05-25] MEDS: LIDOCAINE 5% TOPICAL PATCH TP SCH (10:02)
[2023-05-25] MEDS: EZETIMIBE 10 MG TABLET (FP) PO SCH (10:02)
[2023-05-25] MEDS: NICOTINE 14 MG/24 HOURS TOPICAL PATCH TD SCH (10:02)
[2023-05-25] MEDS: PATIENT'S OWN MEDICATION (NON-FORMULARY) (Insulin Glargine,Hum.Rec.Anlog [Basaglar Kwikpen SQ SCH ×2 (10:04→21:41)
[2023-05-25] MEDS ORDERED: INSULIN (NOVOLOG) ASPART 100 UNITS/ML 10ML VIAL ONE (12:17)
[2023-05-25] MEDS: ROSUVASTATIN CA 10 MG TABLET PO SCH (21:39)
[2023-05-25] MEDS: THIAMINE HCL 100 MG TABLET (FP) PO SCH (21:39)
[2023-05-25] MEDS: MELATONIN 5 MG TABLETS PO SCH (21:39)
[2023-05-25] MEDS: LIDOCAINE PATCH REMOVAL MC SCH (21:41)
[2023-05-25] MEDS: SIMETHICONE 80 MG TAB.CHEW (FP) PO PRN (21:44)
[2023-05-26] MEDS: GABAPENTIN 300 MG CAPSULE PO SCH ×3 (06:28→21:24)
[2023-05-26] MEDS ORDERED: INSULIN (NOVOLOG) ASPART 100 UNITS/ML 10ML VIAL ONE (07:15)
[2023-05-26] MEDS: INSULIN (NOVOLOG) ASPART 100 UNITS/ML 10ML VIAL SQ SCH ×3 (07:46→16:59)
[2023-05-26] MEDS: INSULIN SLIDING SCALE (NOVOLOG) 1 VIAL SQ SCH ×3 (07:47→16:59)
[2023-05-26] MEDS: ASPIRIN 81 MG CHEWABLE TABLETS PO SCH (10:19)
[2023-05-26] MEDS: TAMSULOSIN HCL 0.4 MG CAP PO SCH (10:19)
[2023-05-26] MEDS: CILOSTAZOL 50 MG TABLET PO SCH ×2 (10:20→21:23)
[2023-05-26] MEDS: CHOLECALCIFEROL (VIT D3) 1,000 UNIT (25 MCG) TABLET PO SCH (10:20)
[2023-05-26] MEDS: PANTOPRAZOLE 40 MG TABLET PO SCH (10:20)
[2023-05-26] MEDS: ESCITALOPRAM OXALATE 20 MG TABLET PO SCH (10:20)
[2023-05-26] MEDS: OMEGA-3 ACID ETHYL ESTERS (FATTY-ACIDS) 1 GM CAPSULE (FP) PO SCH ×2 (10:20→21:24)
[2023-05-26] MEDS: NICOTINE 14 MG/24 HOURS TOPICAL PATCH TD SCH (10:21)
[2023-05-26] MEDS: LIDOCAINE 5% TOPICAL PATCH TP SCH (10:21)
[2023-05-26] MEDS: EZETIMIBE 10 MG TABLET (FP) PO SCH (10:46)
[2023-05-26] MEDS: PATIENT'S OWN MEDICATION (NON-FORMULARY) (Insulin Glargine,Hum.Rec.Anlog [Basaglar Kwikpen SQ SCH ×2 (10:46→21:23)
[2023-05-26] MEDS: DAPAGLIFLOZIN PROPANEDIOL 10 MG TABLET PO SCH (10:46)
[2023-05-26 10:48] LABS: INR 0.96 (0.83-1.09); PROTHROMBIN TIME (PATIENT) 11.1 SEC (9.7-13.0)
[2023-05-26 10:50] LABS: POTASSIUM 3.9 mmol/L (3.5-5.1)
[2023-05-26 10:52] LABS: BASO % 0.3 % (0-2.0); EOS % 1.4 % (0-4.5); HEMATOCRIT 54.8 % (35.4-49); HEMOGLOBIN 17.8 GM/dL (11.7-16.9); LYMPH % 14.6 % (8-40); MCHC 32.5 g/dl (32.0-35.9); MEAN CELL VOLUME 92.4 fl (80-96); MEAN PLT VOLUME 9.8 fl (7.5-11.1); MONO % 4.7 % (3.8-10.2); PLATELET COUNT 165 10^3/uL (134-434); RBC 5.93 M/mm3 (4.00-5.60); RDW 13.4 % (11.9-15.9); WHITE BLOOD COUNT 9.1 K/mm3 (4.0-10.0)
[2023-05-26 10:54] LABS: CALCIUM 8.9 mg/dL (8.5-10.1)
[2023-05-26 10:55] LABS: ALBUMIN 3.7 g/dl (3.4-5.0)
[2023-05-26 10:58] LABS: CREATININE 2.3 mg/dL (0.55-1.3)
[2023-05-26 10:59] LABS: TOT PROT 6.7 g/dl (6.4-8.2)
[2023-05-26 11:00] LABS: BILIRUBIN,TOTAL 0.6 mg/dL (0.2-1)
[2023-05-26] MEDS: THIAMINE HCL 100 MG TABLET (FP) PO SCH (21:23)
[2023-05-26] MEDS: ROSUVASTATIN CA 10 MG TABLET PO SCH (21:24)
[2023-05-26] MEDS: SIMETHICONE 80 MG TAB.CHEW (FP) PO PRN (21:25)
[2023-05-26] MEDS: LIDOCAINE PATCH REMOVAL MC SCH (21:26)
[2023-05-26] MEDS: MELATONIN 5 MG TABLETS PO SCH (21:53)
[2023-05-27] MEDS: cloNIDine HCL 0.1 MG TABLET PO PRN (06:28)
[2023-05-27] MEDS: GABAPENTIN 300 MG CAPSULE PO SCH ×3 (06:28→21:35)
[2023-05-27] MEDS ORDERED: INSULIN (NOVOLOG) ASPART 100 UNITS/ML 10ML VIAL ONE ×2 (07:22→21:45)
[2023-05-27] MEDS: INSULIN (NOVOLOG) ASPART 100 UNITS/ML 10ML VIAL SQ SCH ×3 (08:14→16:42)
[2023-05-27] MEDS: INSULIN SLIDING SCALE (NOVOLOG) 1 VIAL SQ SCH ×3 (08:14→16:40)
[2023-05-27] MEDS: PANTOPRAZOLE 40 MG TABLET PO SCH (09:53)
[2023-05-27] MEDS: CHOLECALCIFEROL (VIT D3) 1,000 UNIT (25 MCG) TABLET PO SCH (09:53)
[2023-05-27] MEDS: ASPIRIN 81 MG CHEWABLE TABLETS PO SCH (09:53)
[2023-05-27] MEDS: ESCITALOPRAM OXALATE 20 MG TABLET PO SCH (09:53)
[2023-05-27] MEDS: OMEGA-3 ACID ETHYL ESTERS (FATTY-ACIDS) 1 GM CAPSULE (FP) PO SCH ×2 (09:53→21:35)
[2023-05-27] MEDS: TAMSULOSIN HCL 0.4 MG CAP PO SCH (09:53)
[2023-05-27] MEDS: LIDOCAINE 5% TOPICAL PATCH TP SCH (09:56)
[2023-05-27] MEDS: DAPAGLIFLOZIN PROPANEDIOL 10 MG TABLET PO SCH (09:56)
[2023-05-27] MEDS: NICOTINE 14 MG/24 HOURS TOPICAL PATCH TD SCH (09:56)
[2023-05-27] MEDS: EZETIMIBE 10 MG TABLET (FP) PO SCH (09:58)
[2023-05-27] MEDS: CILOSTAZOL 50 MG TABLET PO SCH ×2 (09:59→21:36)
[2023-05-27] MEDS: PATIENT'S OWN MEDICATION (NON-FORMULARY) (Insulin Glargine,Hum.Rec.Anlog [Basaglar Kwikpen SQ SCH ×2 (10:06→21:42)
[2023-05-27] MEDS: NICOTINE POLACRILEX 2 MG GUM BUC PRN (12:34)
[2023-05-27] MEDS: ROSUVASTATIN CA 10 MG TABLET PO SCH (21:35)
[2023-05-27] MEDS: THIAMINE HCL 100 MG TABLET (FP) PO SCH (21:36)
[2023-05-27] MEDS: LIDOCAINE PATCH REMOVAL MC SCH (21:39)
[2023-05-27] MEDS: MELATONIN 5 MG TABLETS PO SCH (21:45)
[2023-05-28] MEDS: GABAPENTIN 300 MG CAPSULE PO SCH ×3 (06:30→21:21)
[2023-05-28] MEDS: INSULIN (NOVOLOG) ASPART 100 UNITS/ML 10ML VIAL SQ SCH ×3 (07:11→16:33)
[2023-05-28] MEDS: INSULIN SLIDING SCALE (NOVOLOG) 1 VIAL SQ SCH ×3 (07:12→16:33)
[2023-05-28] MEDS: ESCITALOPRAM OXALATE 20 MG TABLET PO SCH (10:03)
[2023-05-28] MEDS: LIDOCAINE 5% TOPICAL PATCH TP SCH (10:03)
[2023-05-28] MEDS: DAPAGLIFLOZIN PROPANEDIOL 10 MG TABLET PO SCH (10:03)
[2023-05-28] MEDS: CHOLECALCIFEROL (VIT D3) 1,000 UNIT (25 MCG) TABLET PO SCH (10:03)
[2023-05-28] MEDS: PANTOPRAZOLE 40 MG TABLET PO SCH (10:03)
[2023-05-28] MEDS: OMEGA-3 ACID ETHYL ESTERS (FATTY-ACIDS) 1 GM CAPSULE (FP) PO SCH ×2 (10:04→21:21)
[2023-05-28] MEDS: EZETIMIBE 10 MG TABLET (FP) PO SCH (10:04)
[2023-05-28] MEDS: CILOSTAZOL 50 MG TABLET PO SCH ×2 (10:04→21:21)
[2023-05-28] MEDS: PATIENT'S OWN MEDICATION (NON-FORMULARY) (Insulin Glargine,Hum.Rec.Anlog [Basaglar Kwikpen SQ SCH ×2 (10:05→21:22)
[2023-05-28] MEDS: ASPIRIN 81 MG CHEWABLE TABLETS PO SCH (10:05)
[2023-05-28] MEDS: NICOTINE 14 MG/24 HOURS TOPICAL PATCH TD SCH (10:06)
[2023-05-28] MEDS: TAMSULOSIN HCL 0.4 MG CAP PO SCH (10:06)
[2023-05-28] MEDS: ROSUVASTATIN CA 10 MG TABLET PO SCH (21:21)
[2023-05-28] MEDS: LIDOCAINE PATCH REMOVAL MC SCH (21:21)
[2023-05-28] MEDS: MELATONIN 5 MG TABLETS PO SCH (21:21)
[2023-05-28] MEDS: THIAMINE HCL 100 MG TABLET (FP) PO SCH (21:21)
[2023-05-29] MEDS: LOPERAMIDE HCL 2 MG CAPSULE PO PRN (06:53)
[2023-05-29] MEDS: GABAPENTIN 300 MG CAPSULE PO SCH ×3 (06:53→21:32)
[2023-05-29] MEDS: INSULIN (NOVOLOG) ASPART 100 UNITS/ML 10ML VIAL SQ SCH ×3 (07:52→16:29)
[2023-05-29] MEDS: INSULIN SLIDING SCALE (NOVOLOG) 1 VIAL SQ SCH ×3 (07:53→16:29)
[2023-05-29] MEDS: DAPAGLIFLOZIN PROPANEDIOL 10 MG TABLET PO SCH (10:03)
[2023-05-29] MEDS: PANTOPRAZOLE 40 MG TABLET PO SCH (10:03)
[2023-05-29] MEDS: TAMSULOSIN HCL 0.4 MG CAP PO SCH (10:03)
[2023-05-29] MEDS: ESCITALOPRAM OXALATE 20 MG TABLET PO SCH (10:03)
[2023-05-29] MEDS: CHOLECALCIFEROL (VIT D3) 1,000 UNIT (25 MCG) TABLET PO SCH (10:03)
[2023-05-29] MEDS: CILOSTAZOL 50 MG TABLET PO SCH ×2 (10:03→21:35)
[2023-05-29] MEDS: OMEGA-3 ACID ETHYL ESTERS (FATTY-ACIDS) 1 GM CAPSULE (FP) PO SCH ×2 (10:03→21:32)
[2023-05-29] MEDS: ASPIRIN 81 MG CHEWABLE TABLETS PO SCH (10:03)
[2023-05-29] MEDS: EZETIMIBE 10 MG TABLET (FP) PO SCH (10:04)
[2023-05-29] MEDS: NICOTINE 14 MG/24 HOURS TOPICAL PATCH TD SCH (10:05)
[2023-05-29] MEDS: LIDOCAINE 5% TOPICAL PATCH TP SCH (10:06)
[2023-05-29] MEDS: PATIENT'S OWN MEDICATION (NON-FORMULARY) (Insulin Glargine,Hum.Rec.Anlog [Basaglar Kwikpen SQ SCH ×2 (10:08→21:35)
[2023-05-29] MEDS: ROSUVASTATIN CA 10 MG TABLET PO SCH (21:32)
[2023-05-29] MEDS: MELATONIN 5 MG TABLETS PO SCH (21:33)
[2023-05-29] MEDS: THIAMINE HCL 100 MG TABLET (FP) PO SCH (21:35)
[2023-05-29] MEDS: LIDOCAINE PATCH REMOVAL MC SCH (21:35)
[2023-05-30] MEDS: GABAPENTIN 300 MG CAPSULE PO SCH ×3 (05:45→21:26)
[2023-05-30] MEDS: cloNIDine HCL 0.1 MG TABLET PO PRN (05:46)
[2023-05-30] MEDS: INSULIN SLIDING SCALE (NOVOLOG) 1 VIAL SQ SCH ×4 (07:36→16:24)
[2023-05-30] MEDS: TAMSULOSIN HCL 0.4 MG CAP PO SCH (07:38)
[2023-05-30] MEDS: INSULIN (NOVOLOG) ASPART 100 UNITS/ML 10ML VIAL SQ SCH ×3 (07:38→16:24)
[2023-05-30] MEDS: CHOLECALCIFEROL (VIT D3) 1,000 UNIT (25 MCG) TABLET PO SCH (09:52)
[2023-05-30] MEDS: ASPIRIN 81 MG CHEWABLE TABLETS PO SCH (09:52)
[2023-05-30] MEDS: OMEGA-3 ACID ETHYL ESTERS (FATTY-ACIDS) 1 GM CAPSULE (FP) PO SCH ×2 (09:52→21:26)
[2023-05-30] MEDS: DAPAGLIFLOZIN PROPANEDIOL 10 MG TABLET PO SCH (09:52)
[2023-05-30] MEDS: CILOSTAZOL 50 MG TABLET PO SCH ×2 (09:52→21:27)
[2023-05-30] MEDS: ESCITALOPRAM OXALATE 20 MG TABLET PO SCH (09:52)
[2023-05-30] MEDS: PANTOPRAZOLE 40 MG TABLET PO SCH (09:52)
[2023-05-30] MEDS: EZETIMIBE 10 MG TABLET (FP) PO SCH (09:52)
[2023-05-30] MEDS: PATIENT'S OWN MEDICATION (NON-FORMULARY) (Insulin Glargine,Hum.Rec.Anlog [Basaglar Kwikpen SQ SCH ×2 (09:54→21:26)
[2023-05-30] MEDS: LIDOCAINE 5% TOPICAL PATCH TP SCH (09:54)
[2023-05-30] MEDS: NICOTINE 14 MG/24 HOURS TOPICAL PATCH TD SCH (09:54)
[2023-05-30] MEDS: LOPERAMIDE HCL 2 MG CAPSULE PO PRN (20:44)
[2023-05-30] MEDS: THIAMINE HCL 100 MG TABLET (FP) PO SCH (21:25)
[2023-05-30] MEDS: MELATONIN 5 MG TABLETS PO SCH (21:25)
[2023-05-30] MEDS: ROSUVASTATIN CA 10 MG TABLET PO SCH (21:26)
[2023-05-30] MEDS: LIDOCAINE PATCH REMOVAL MC SCH (21:26)
[2023-05-30] MEDS: SIMETHICONE 80 MG TAB.CHEW (FP) PO PRN (23:27)
[2023-05-31] MEDS: GABAPENTIN 300 MG CAPSULE PO SCH ×3 (06:47→21:29)
[2023-05-31] MEDS: INSULIN (NOVOLOG) ASPART 100 UNITS/ML 10ML VIAL SQ SCH ×3 (06:47→16:37)
[2023-05-31] MEDS: INSULIN SLIDING SCALE (NOVOLOG) 1 VIAL SQ SCH ×3 (06:47→16:34)
[2023-05-31] MEDS ORDERED: INSULIN (NOVOLOG) ASPART 100 UNITS/ML 10ML VIAL ONE ×2 (06:51→06:52)
[2023-05-31] MEDS: DAPAGLIFLOZIN PROPANEDIOL 10 MG TABLET PO SCH (10:05)
[2023-05-31] MEDS: CHOLECALCIFEROL (VIT D3) 1,000 UNIT (25 MCG) TABLET PO SCH (10:05)
[2023-05-31] MEDS: EZETIMIBE 10 MG TABLET (FP) PO SCH (10:05)
[2023-05-31] MEDS: CILOSTAZOL 50 MG TABLET PO SCH ×2 (10:05→21:39)
[2023-05-31] MEDS: ESCITALOPRAM OXALATE 20 MG TABLET PO SCH (10:05)
[2023-05-31] MEDS: PANTOPRAZOLE 40 MG TABLET PO SCH (10:05)
[2023-05-31] MEDS: OMEGA-3 ACID ETHYL ESTERS (FATTY-ACIDS) 1 GM CAPSULE (FP) PO SCH ×2 (10:05→21:29)
[2023-05-31] MEDS: TAMSULOSIN HCL 0.4 MG CAP PO SCH (10:08)
[2023-05-31] MEDS: ASPIRIN 81 MG CHEWABLE TABLETS PO SCH (10:08)
[2023-05-31] MEDS: PATIENT'S OWN MEDICATION (NON-FORMULARY) (Insulin Glargine,Hum.Rec.Anlog [Basaglar Kwikpen SQ SCH ×4 (10:09→21:37)
[2023-05-31] MEDS: PATIENT'S OWN MEDICATION (NON-FORMULARY) (Dulaglutide [Trulicity] 1.5 MG/0.5 ML Pen.Injctr SQ SCH (10:09)
[2023-05-31] MEDS: LIDOCAINE 5% TOPICAL PATCH TP SCH (10:20)
[2023-05-31] MEDS: NICOTINE 14 MG/24 HOURS TOPICAL PATCH TD SCH (10:21)
[2023-05-31] MEDS ORDERED: PATIENT'S OWN MEDICATION (NON-FORMULARY) (Insulin Glargine,Hum.Rec.Anlog [Basaglar Kwikpen SQ SCH (10:45)
[2023-05-31] MEDS: MELATONIN 5 MG TABLETS PO SCH (21:29)
[2023-05-31] MEDS: SIMETHICONE 80 MG TAB.CHEW (FP) PO PRN (21:29)
[2023-05-31] MEDS: THIAMINE HCL 100 MG TABLET (FP) PO SCH (21:29)
[2023-05-31] MEDS: ROSUVASTATIN CA 10 MG TABLET PO SCH (21:29)
[2023-05-31] MEDS: LIDOCAINE PATCH REMOVAL MC SCH (22:59)
[2023-06-01] MEDS: GABAPENTIN 300 MG CAPSULE PO SCH ×3 (06:23→21:01)
[2023-06-01] MEDS: INSULIN SLIDING SCALE (NOVOLOG) 1 VIAL SQ SCH ×3 (07:35→16:53)
[2023-06-01] MEDS: INSULIN (NOVOLOG) ASPART 100 UNITS/ML 10ML VIAL SQ SCH ×3 (07:36→16:53)
[2023-06-01] MEDS: TAMSULOSIN HCL 0.4 MG CAP PO SCH (09:55)
[2023-06-01] MEDS: CHOLECALCIFEROL (VIT D3) 1,000 UNIT (25 MCG) TABLET PO SCH (09:56)
[2023-06-01] MEDS: PANTOPRAZOLE 40 MG TABLET PO SCH (09:56)
[2023-06-01] MEDS: ASPIRIN 81 MG CHEWABLE TABLETS PO SCH (09:56)
[2023-06-01] MEDS: ESCITALOPRAM OXALATE 20 MG TABLET PO SCH (09:56)
[2023-06-01] MEDS: OMEGA-3 ACID ETHYL ESTERS (FATTY-ACIDS) 1 GM CAPSULE (FP) PO SCH ×2 (09:56→21:01)
[2023-06-01] MEDS: DAPAGLIFLOZIN PROPANEDIOL 10 MG TABLET PO SCH (09:57)
[2023-06-01] MEDS: CILOSTAZOL 50 MG TABLET PO SCH ×2 (09:58→21:05)
[2023-06-01] MEDS: LIDOCAINE 5% TOPICAL PATCH TP SCH (09:58)
[2023-06-01] MEDS: NICOTINE 14 MG/24 HOURS TOPICAL PATCH TD SCH (09:58)
[2023-06-01] MEDS: EZETIMIBE 10 MG TABLET (FP) PO SCH (09:59)
[2023-06-01] MEDS: PATIENT'S OWN MEDICATION (NON-FORMULARY) (Insulin Glargine,Hum.Rec.Anlog [Basaglar Kwikpen SQ SCH ×2 (10:35→21:06)
[2023-06-01] MEDS: SIMETHICONE 80 MG TAB.CHEW (FP) PO PRN (20:06)
[2023-06-01] MEDS: LIDOCAINE PATCH REMOVAL MC SCH (21:01)
[2023-06-01] MEDS: ROSUVASTATIN CA 10 MG TABLET PO SCH (21:01)
[2023-06-01] MEDS: THIAMINE HCL 100 MG TABLET (FP) PO SCH (21:01)
[2023-06-01] MEDS: MELATONIN 5 MG TABLETS PO SCH (21:04)
[2023-06-01] MEDS: cloNIDine HCL 0.1 MG TABLET PO PRN (22:00)
[2023-06-02] MEDS: GABAPENTIN 300 MG CAPSULE PO SCH ×3 (06:17→21:16)
[2023-06-02] MEDS: INSULIN (NOVOLOG) ASPART 100 UNITS/ML 10ML VIAL SQ SCH ×3 (07:18→16:46)
[2023-06-02] MEDS: INSULIN SLIDING SCALE (NOVOLOG) 1 VIAL SQ SCH ×3 (07:19→16:46)
[2023-06-02] MEDS: CHOLECALCIFEROL (VIT D3) 1,000 UNIT (25 MCG) TABLET PO SCH (09:43)
[2023-06-02] MEDS: OMEGA-3 ACID ETHYL ESTERS (FATTY-ACIDS) 1 GM CAPSULE (FP) PO SCH ×2 (09:44→21:15)
[2023-06-02] MEDS: ESCITALOPRAM OXALATE 20 MG TABLET PO SCH (09:44)
[2023-06-02] MEDS: TAMSULOSIN HCL 0.4 MG CAP PO SCH (09:44)
[2023-06-02] MEDS: PANTOPRAZOLE 40 MG TABLET PO SCH (09:44)
[2023-06-02] MEDS: ASPIRIN 81 MG CHEWABLE TABLETS PO SCH (09:44)
[2023-06-02] MEDS: DAPAGLIFLOZIN PROPANEDIOL 10 MG TABLET PO SCH (09:45)
[2023-06-02] MEDS: CILOSTAZOL 50 MG TABLET PO SCH ×2 (09:46→21:16)
[2023-06-02] MEDS: NICOTINE 14 MG/24 HOURS TOPICAL PATCH TD SCH (09:46)
[2023-06-02] MEDS: LIDOCAINE 5% TOPICAL PATCH TP SCH (09:46)
[2023-06-02] MEDS: EZETIMIBE 10 MG TABLET (FP) PO SCH (09:48)
[2023-06-02] MEDS: PATIENT'S OWN MEDICATION (NON-FORMULARY) (Insulin Glargine,Hum.Rec.Anlog [Basaglar Kwikpen SQ SCH ×2 (10:32→21:22)
[2023-06-02] MEDS ORDERED: INSULIN (NOVOLOG) ASPART 100 UNITS/ML 10ML VIAL ONE (11:57)
[2023-06-02] MEDS: ROSUVASTATIN CA 10 MG TABLET PO SCH (21:16)
[2023-06-02] MEDS: LIDOCAINE PATCH REMOVAL MC SCH (21:16)
[2023-06-02] MEDS: MELATONIN 5 MG TABLETS PO SCH (21:16)
[2023-06-02] MEDS: THIAMINE HCL 100 MG TABLET (FP) PO SCH (21:17)
[2023-06-03] MEDS: GABAPENTIN 300 MG CAPSULE PO SCH ×3 (06:15→21:08)
[2023-06-03] MEDS: INSULIN (NOVOLOG) ASPART 100 UNITS/ML 10ML VIAL SQ SCH ×3 (06:16→16:44)
[2023-06-03] MEDS: INSULIN SLIDING SCALE (NOVOLOG) 1 VIAL SQ SCH ×3 (07:06→16:45)
[2023-06-03] MEDS: OMEGA-3 ACID ETHYL ESTERS (FATTY-ACIDS) 1 GM CAPSULE (FP) PO SCH ×2 (10:26→21:08)
[2023-06-03] MEDS: CHOLECALCIFEROL (VIT D3) 1,000 UNIT (25 MCG) TABLET PO SCH (10:26)
[2023-06-03] MEDS: PANTOPRAZOLE 40 MG TABLET PO SCH (10:26)
[2023-06-03] MEDS: ESCITALOPRAM OXALATE 20 MG TABLET PO SCH (10:26)
[2023-06-03] MEDS: ASPIRIN 81 MG CHEWABLE TABLETS PO SCH (10:26)
[2023-06-03] MEDS: TAMSULOSIN HCL 0.4 MG CAP PO SCH (10:26)
[2023-06-03] MEDS: EZETIMIBE 10 MG TABLET (FP) PO SCH (10:27)
[2023-06-03] MEDS: NICOTINE 14 MG/24 HOURS TOPICAL PATCH TD SCH (10:27)
[2023-06-03] MEDS: LIDOCAINE 5% TOPICAL PATCH TP SCH (10:27)
[2023-06-03] MEDS: CILOSTAZOL 50 MG TABLET PO SCH ×2 (10:27→21:09)
[2023-06-03] MEDS: DAPAGLIFLOZIN PROPANEDIOL 10 MG TABLET PO SCH (10:28)
[2023-06-03] MEDS: PATIENT'S OWN MEDICATION (NON-FORMULARY) (Insulin Glargine,Hum.Rec.Anlog [Basaglar Kwikpen SQ SCH ×2 (10:33→21:14)
[2023-06-03] MEDS ORDERED: METHYL SALICYLATE/MENTHOL OINT 30 GM TUBE TP PRN (10:37)
[2023-06-03] MEDS: cloNIDine HCL 0.1 MG TABLET PO PRN (11:43)
[2023-06-03] MEDS: ARTIFICIAL TEARS (POLYVINYL ALCOHOL) OPTH DROPS OU PRN ×2 (11:45→21:46)
[2023-06-03] MEDS: NICOTINE POLACRILEX 2 MG GUM BUC PRN (17:38)
[2023-06-03] MEDS: LIDOCAINE PATCH REMOVAL MC SCH (21:08)
[2023-06-03] MEDS: MELATONIN 5 MG TABLETS PO SCH (21:08)
[2023-06-03] MEDS: THIAMINE HCL 100 MG TABLET (FP) PO SCH (21:08)
[2023-06-03] MEDS: ROSUVASTATIN CA 10 MG TABLET PO SCH (21:08)
[2023-06-04] MEDS: GABAPENTIN 300 MG CAPSULE PO SCH ×3 (06:19→21:14)
[2023-06-04] MEDS: INSULIN (NOVOLOG) ASPART 100 UNITS/ML 10ML VIAL SQ SCH ×3 (07:58→16:59)
[2023-06-04] MEDS: INSULIN SLIDING SCALE (NOVOLOG) 1 VIAL SQ SCH ×3 (07:59→16:57)
[2023-06-04] MEDS ORDERED: INSULIN (NOVOLOG) ASPART 100 UNITS/ML 10ML VIAL ONE (08:03)
[2023-06-04] MEDS: ASPIRIN 81 MG CHEWABLE TABLETS PO SCH (09:47)
[2023-06-04] MEDS: CHOLECALCIFEROL (VIT D3) 1,000 UNIT (25 MCG) TABLET PO SCH (09:48)
[2023-06-04] MEDS: PANTOPRAZOLE 40 MG TABLET PO SCH (09:48)
[2023-06-04] MEDS: OMEGA-3 ACID ETHYL ESTERS (FATTY-ACIDS) 1 GM CAPSULE (FP) PO SCH ×2 (09:48→21:13)
[2023-06-04] MEDS: ESCITALOPRAM OXALATE 20 MG TABLET PO SCH (09:48)
[2023-06-04] MEDS: TAMSULOSIN HCL 0.4 MG CAP PO SCH (09:48)
[2023-06-04] MEDS: DAPAGLIFLOZIN PROPANEDIOL 10 MG TABLET PO SCH (09:49)
[2023-06-04] MEDS: EZETIMIBE 10 MG TABLET (FP) PO SCH (09:50)
[2023-06-04] MEDS: CILOSTAZOL 50 MG TABLET PO SCH ×2 (09:51→21:14)
[2023-06-04] MEDS: LIDOCAINE 5% TOPICAL PATCH TP SCH (09:52)
[2023-06-04] MEDS: NICOTINE 14 MG/24 HOURS TOPICAL PATCH TD SCH (09:52)
[2023-06-04] MEDS: ARTIFICIAL TEARS (POLYVINYL ALCOHOL) OPTH DROPS OU PRN ×2 (09:54→21:55)
[2023-06-04] MEDS: LOPERAMIDE HCL 2 MG CAPSULE PO PRN (09:55)
[2023-06-04] MEDS: PATIENT'S OWN MEDICATION (NON-FORMULARY) (Insulin Glargine,Hum.Rec.Anlog [Basaglar Kwikpen SQ SCH ×2 (10:30→21:12)
[2023-06-04] MEDS: LIDOCAINE PATCH REMOVAL MC SCH (21:13)
[2023-06-04] MEDS: THIAMINE HCL 100 MG TABLET (FP) PO SCH (21:14)
[2023-06-04] MEDS: MELATONIN 5 MG TABLETS PO SCH (21:14)
[2023-06-04] MEDS: ROSUVASTATIN CA 10 MG TABLET PO SCH (21:16)
[2023-06-05] MEDS: GABAPENTIN 300 MG CAPSULE PO SCH ×3 (07:04→21:01)
[2023-06-05] MEDS: INSULIN (NOVOLOG) ASPART 100 UNITS/ML 10ML VIAL SQ SCH ×3 (07:06→16:52)
[2023-06-05] MEDS: INSULIN SLIDING SCALE (NOVOLOG) 1 VIAL SQ SCH ×3 (07:06→16:54)
[2023-06-05] MEDS: LOPERAMIDE HCL 2 MG CAPSULE PO PRN (07:08)
[2023-06-05] MEDS: TAMSULOSIN HCL 0.4 MG CAP PO SCH (09:36)
[2023-06-05] MEDS: PANTOPRAZOLE 40 MG TABLET PO SCH (09:36)
[2023-06-05] MEDS: OMEGA-3 ACID ETHYL ESTERS (FATTY-ACIDS) 1 GM CAPSULE (FP) PO SCH ×2 (09:36→21:01)
[2023-06-05] MEDS: ASPIRIN 81 MG CHEWABLE TABLETS PO SCH (09:36)
[2023-06-05] MEDS: CHOLECALCIFEROL (VIT D3) 1,000 UNIT (25 MCG) TABLET PO SCH (09:36)
[2023-06-05] MEDS: ESCITALOPRAM OXALATE 20 MG TABLET PO SCH (09:36)
[2023-06-05] MEDS: DAPAGLIFLOZIN PROPANEDIOL 10 MG TABLET PO SCH (09:37)
[2023-06-05] MEDS: LIDOCAINE 5% TOPICAL PATCH TP SCH (09:38)
[2023-06-05] MEDS: CILOSTAZOL 50 MG TABLET PO SCH ×2 (09:38→21:01)
[2023-06-05] MEDS: EZETIMIBE 10 MG TABLET (FP) PO SCH (09:38)
[2023-06-05] MEDS: NICOTINE 14 MG/24 HOURS TOPICAL PATCH TD SCH (09:39)
[2023-06-05] MEDS: PATIENT'S OWN MEDICATION (NON-FORMULARY) (Insulin Glargine,Hum.Rec.Anlog [Basaglar Kwikpen SQ SCH ×2 (10:07→21:05)
[2023-06-05] MEDS ORDERED: INSULIN (NOVOLOG) ASPART 100 UNITS/ML 10ML VIAL ONE (11:56)
[2023-06-05] MEDS: cloNIDine HCL 0.1 MG TABLET PO PRN (16:51)
[2023-06-05] MEDS: SIMETHICONE 80 MG TAB.CHEW (FP) PO PRN (21:01)
[2023-06-05] MEDS: THIAMINE HCL 100 MG TABLET (FP) PO SCH (21:01)
[2023-06-05] MEDS: ROSUVASTATIN CA 10 MG TABLET PO SCH (21:01)
[2023-06-05] MEDS: MELATONIN 5 MG TABLETS PO SCH (21:01)
[2023-06-05] MEDS: LIDOCAINE PATCH REMOVAL MC SCH (21:02)
[2023-06-06] MEDS: GABAPENTIN 300 MG CAPSULE PO SCH ×3 (06:29→21:16)
[2023-06-06] MEDS: INSULIN SLIDING SCALE (NOVOLOG) 1 VIAL SQ SCH ×3 (06:30→16:54)
[2023-06-06] MEDS: INSULIN (NOVOLOG) ASPART 100 UNITS/ML 10ML VIAL SQ SCH ×3 (08:06→16:54)
[2023-06-06] MEDS: LIDOCAINE 5% TOPICAL PATCH TP SCH (10:16)
[2023-06-06] MEDS: CHOLECALCIFEROL (VIT D3) 1,000 UNIT (25 MCG) TABLET PO SCH (10:16)
[2023-06-06] MEDS: OMEGA-3 ACID ETHYL ESTERS (FATTY-ACIDS) 1 GM CAPSULE (FP) PO SCH ×2 (10:16→21:16)
[2023-06-06] MEDS: ESCITALOPRAM OXALATE 20 MG TABLET PO SCH (10:16)
[2023-06-06] MEDS: ASPIRIN 81 MG CHEWABLE TABLETS PO SCH (10:16)
[2023-06-06] MEDS: PANTOPRAZOLE 40 MG TABLET PO SCH (10:16)
[2023-06-06] MEDS: TAMSULOSIN HCL 0.4 MG CAP PO SCH (10:16)
[2023-06-06] MEDS: CILOSTAZOL 50 MG TABLET PO SCH ×2 (10:17→21:16)
[2023-06-06] MEDS: NICOTINE 14 MG/24 HOURS TOPICAL PATCH TD SCH (10:17)
[2023-06-06] MEDS: DAPAGLIFLOZIN PROPANEDIOL 10 MG TABLET PO SCH (10:17)
[2023-06-06] MEDS: EZETIMIBE 10 MG TABLET (FP) PO SCH (10:17)
[2023-06-06] MEDS: ARTIFICIAL TEARS (POLYVINYL ALCOHOL) OPTH DROPS OU PRN (10:20)
[2023-06-06] MEDS: PATIENT'S OWN MEDICATION (NON-FORMULARY) (Insulin Glargine,Hum.Rec.Anlog [Basaglar Kwikpen SQ SCH ×2 (10:24→21:21)
[2023-06-06] MEDS: THIAMINE HCL 100 MG TABLET (FP) PO SCH (21:16)
[2023-06-06] MEDS: ROSUVASTATIN CA 10 MG TABLET PO SCH (21:16)
[2023-06-06] MEDS: MELATONIN 5 MG TABLETS PO SCH (21:16)
[2023-06-06] MEDS ORDERED: TUBERCULIN PPD 5 TU/0.1ML VIAL ID ONE (21:20)
[2023-06-06] MEDS: LIDOCAINE PATCH REMOVAL MC SCH (21:20)
[2023-06-07] MEDS: GABAPENTIN 300 MG CAPSULE PO SCH ×3 (06:20→21:18)
[2023-06-07] MEDS: INSULIN (NOVOLOG) ASPART 100 UNITS/ML 10ML VIAL SQ SCH ×3 (08:02→16:59)
[2023-06-07] MEDS: INSULIN SLIDING SCALE (NOVOLOG) 1 VIAL SQ SCH ×3 (08:03→17:00)
[2023-06-07] MEDS: ARTIFICIAL TEARS (POLYVINYL ALCOHOL) OPTH DROPS OU PRN (08:58)
[2023-06-07] MEDS: ESCITALOPRAM OXALATE 20 MG TABLET PO SCH (09:35)
[2023-06-07] MEDS: OMEGA-3 ACID ETHYL ESTERS (FATTY-ACIDS) 1 GM CAPSULE (FP) PO SCH ×2 (09:35→21:18)
[2023-06-07] MEDS: ASPIRIN 81 MG CHEWABLE TABLETS PO SCH (09:35)
[2023-06-07] MEDS: NICOTINE 14 MG/24 HOURS TOPICAL PATCH TD SCH (09:35)
[2023-06-07] MEDS: LIDOCAINE 5% TOPICAL PATCH TP SCH (09:35)
[2023-06-07] MEDS: CHOLECALCIFEROL (VIT D3) 1,000 UNIT (25 MCG) TABLET PO SCH (09:35)
[2023-06-07] MEDS: TAMSULOSIN HCL 0.4 MG CAP PO SCH (09:35)
[2023-06-07] MEDS: PANTOPRAZOLE 40 MG TABLET PO SCH (09:35)
[2023-06-07] MEDS: CILOSTAZOL 50 MG TABLET PO SCH ×2 (09:36→21:29)
[2023-06-07] MEDS: EZETIMIBE 10 MG TABLET (FP) PO SCH (09:36)
[2023-06-07] MEDS: DAPAGLIFLOZIN PROPANEDIOL 10 MG TABLET PO SCH (09:36)
[2023-06-07] MEDS: PATIENT'S OWN MEDICATION (NON-FORMULARY) (Insulin Glargine,Hum.Rec.Anlog [Basaglar Kwikpen SQ SCH ×2 (09:41→21:21)
[2023-06-07] MEDS: PATIENT'S OWN MEDICATION (NON-FORMULARY) (Dulaglutide [Trulicity] 1.5 MG/0.5 ML Pen.Injctr SQ SCH (11:00)
[2023-06-07] MEDS: ROSUVASTATIN CA 10 MG TABLET PO SCH (21:18)
[2023-06-07] MEDS: THIAMINE HCL 100 MG TABLET (FP) PO SCH (21:18)
[2023-06-07] MEDS: MELATONIN 5 MG TABLETS PO SCH (21:18)
[2023-06-07] MEDS: LIDOCAINE PATCH REMOVAL MC SCH (21:21)
[2023-06-08] MEDS: INSULIN SLIDING SCALE (NOVOLOG) 1 VIAL SQ SCH ×3 (06:59→17:14)
[2023-06-08] MEDS: GABAPENTIN 300 MG CAPSULE PO SCH ×3 (06:59→21:25)
[2023-06-08] MEDS: INSULIN (NOVOLOG) ASPART 100 UNITS/ML 10ML VIAL SQ SCH ×3 (07:01→17:15)
[2023-06-08] MEDS: TAMSULOSIN HCL 0.4 MG CAP PO SCH (09:16)
[2023-06-08] MEDS: ASPIRIN 81 MG CHEWABLE TABLETS PO SCH (09:47)
[2023-06-08] MEDS: CHOLECALCIFEROL (VIT D3) 1,000 UNIT (25 MCG) TABLET PO SCH (09:47)
[2023-06-08] MEDS: NICOTINE 14 MG/24 HOURS TOPICAL PATCH TD SCH (09:47)
[2023-06-08] MEDS: PANTOPRAZOLE 40 MG TABLET PO SCH (09:47)
[2023-06-08] MEDS: ESCITALOPRAM OXALATE 20 MG TABLET PO SCH (09:47)
[2023-06-08] MEDS: OMEGA-3 ACID ETHYL ESTERS (FATTY-ACIDS) 1 GM CAPSULE (FP) PO SCH ×2 (09:47→21:24)
[2023-06-08] MEDS: LIDOCAINE 5% TOPICAL PATCH TP SCH (09:48)
[2023-06-08] MEDS: EZETIMIBE 10 MG TABLET (FP) PO SCH (09:49)
[2023-06-08] MEDS: DAPAGLIFLOZIN PROPANEDIOL 10 MG TABLET PO SCH (09:49)
[2023-06-08] MEDS: CILOSTAZOL 50 MG TABLET PO SCH ×2 (09:49→21:25)
[2023-06-08] MEDS: PATIENT'S OWN MEDICATION (NON-FORMULARY) (Insulin Glargine,Hum.Rec.Anlog [Basaglar Kwikpen SQ SCH ×2 (10:35→21:26)
[2023-06-08] MEDS: ARTIFICIAL TEARS (POLYVINYL ALCOHOL) OPTH DROPS OU PRN ×2 (15:50→21:55)
[2023-06-08] MEDS: MELATONIN 5 MG TABLETS PO SCH (21:22)
[2023-06-08] MEDS: THIAMINE HCL 100 MG TABLET (FP) PO SCH (21:23)
[2023-06-08] MEDS: SIMETHICONE 80 MG TAB.CHEW (FP) PO PRN (21:23)
[2023-06-08] MEDS: ROSUVASTATIN CA 10 MG TABLET PO SCH (21:23)
[2023-06-08] MEDS: LIDOCAINE PATCH REMOVAL MC SCH (21:25)
[2023-06-09] MEDS: LOPERAMIDE HCL 2 MG CAPSULE PO PRN ×2 (00:55→07:18)
[2023-06-09] MEDS: GABAPENTIN 300 MG CAPSULE PO SCH ×3 (06:14→21:08)
[2023-06-09] MEDS: INSULIN SLIDING SCALE (NOVOLOG) 1 VIAL SQ SCH ×3 (07:19→17:14)
[2023-06-09] MEDS: INSULIN (NOVOLOG) ASPART 100 UNITS/ML 10ML VIAL SQ SCH ×3 (07:22→17:14)
[2023-06-09] MEDS: OMEGA-3 ACID ETHYL ESTERS (FATTY-ACIDS) 1 GM CAPSULE (FP) PO SCH ×2 (09:50→21:08)
[2023-06-09] MEDS: TAMSULOSIN HCL 0.4 MG CAP PO SCH (09:50)
[2023-06-09] MEDS: ASPIRIN 81 MG CHEWABLE TABLETS PO SCH (09:51)
[2023-06-09] MEDS: CHOLECALCIFEROL (VIT D3) 1,000 UNIT (25 MCG) TABLET PO SCH (09:51)
[2023-06-09] MEDS: PANTOPRAZOLE 40 MG TABLET PO SCH (09:51)
[2023-06-09] MEDS: ESCITALOPRAM OXALATE 20 MG TABLET PO SCH (09:51)
[2023-06-09] MEDS: DAPAGLIFLOZIN PROPANEDIOL 10 MG TABLET PO SCH (09:52)
[2023-06-09] MEDS: EZETIMIBE 10 MG TABLET (FP) PO SCH (09:52)
[2023-06-09] MEDS: CILOSTAZOL 50 MG TABLET PO SCH ×2 (09:52→21:10)
[2023-06-09] MEDS: LIDOCAINE 5% TOPICAL PATCH TP SCH (09:53)
[2023-06-09] MEDS: NICOTINE 14 MG/24 HOURS TOPICAL PATCH TD SCH (09:53)
[2023-06-09] MEDS: PATIENT'S OWN MEDICATION (NON-FORMULARY) (Insulin Glargine,Hum.Rec.Anlog [Basaglar Kwikpen SQ SCH ×2 (10:27→21:11)
[2023-06-09] MEDS: ARTIFICIAL TEARS (POLYVINYL ALCOHOL) OPTH DROPS OU PRN (21:07)
[2023-06-09] MEDS: ROSUVASTATIN CA 10 MG TABLET PO SCH (21:08)
[2023-06-09] MEDS: THIAMINE HCL 100 MG TABLET (FP) PO SCH (21:08)
[2023-06-09] MEDS: SIMETHICONE 80 MG TAB.CHEW (FP) PO PRN (21:08)
[2023-06-09] MEDS: MELATONIN 5 MG TABLETS PO SCH (21:09)
[2023-06-09] MEDS: LIDOCAINE PATCH REMOVAL MC SCH (21:12)
[2023-06-09 22:08] VITALS: RESP 18
[2023-06-10] MEDS: GABAPENTIN 300 MG CAPSULE PO SCH ×3 (06:53→21:25)
[2023-06-10] MEDS: INSULIN (NOVOLOG) ASPART 100 UNITS/ML 10ML VIAL SQ SCH ×3 (06:55→16:34)
[2023-06-10] MEDS: INSULIN SLIDING SCALE (NOVOLOG) 1 VIAL SQ SCH ×3 (06:58→16:32)
[2023-06-10] MEDS: ESCITALOPRAM OXALATE 20 MG TABLET PO SCH (10:03)
[2023-06-10] MEDS: TAMSULOSIN HCL 0.4 MG CAP PO SCH (10:03)
[2023-06-10] MEDS: CHOLECALCIFEROL (VIT D3) 1,000 UNIT (25 MCG) TABLET PO SCH (10:03)
[2023-06-10] MEDS: ASPIRIN 81 MG CHEWABLE TABLETS PO SCH (10:03)
[2023-06-10] MEDS: PANTOPRAZOLE 40 MG TABLET PO SCH (10:03)
[2023-06-10] MEDS: OMEGA-3 ACID ETHYL ESTERS (FATTY-ACIDS) 1 GM CAPSULE (FP) PO SCH ×2 (10:03→21:25)
[2023-06-10] MEDS: CILOSTAZOL 50 MG TABLET PO SCH ×2 (10:04→21:25)
[2023-06-10] MEDS: NICOTINE 14 MG/24 HOURS TOPICAL PATCH TD SCH (10:05)
[2023-06-10] MEDS: LIDOCAINE 5% TOPICAL PATCH TP SCH (10:06)
[2023-06-10] MEDS: DAPAGLIFLOZIN PROPANEDIOL 10 MG TABLET PO SCH (10:06)
[2023-06-10] MEDS: EZETIMIBE 10 MG TABLET (FP) PO SCH (10:07)
[2023-06-10] MEDS: PATIENT'S OWN MEDICATION (NON-FORMULARY) (Insulin Glargine,Hum.Rec.Anlog [Basaglar Kwikpen SQ SCH ×2 (10:23→21:26)
[2023-06-10] MEDS: ARTIFICIAL TEARS (POLYVINYL ALCOHOL) OPTH DROPS OU PRN (18:44)
[2023-06-10] MEDS: ROSUVASTATIN CA 10 MG TABLET PO SCH (21:25)
[2023-06-10] MEDS: MELATONIN 5 MG TABLETS PO SCH (21:25)
[2023-06-10] MEDS: THIAMINE HCL 100 MG TABLET (FP) PO SCH (21:26)
[2023-06-10] MEDS: LIDOCAINE PATCH REMOVAL MC SCH (21:37)
[2023-06-11] MEDS: cloNIDine HCL 0.1 MG TABLET PO PRN (06:30)
[2023-06-11] MEDS: GABAPENTIN 300 MG CAPSULE PO SCH ×3 (06:30→21:20)
[2023-06-11] MEDS: INSULIN SLIDING SCALE (NOVOLOG) 1 VIAL SQ SCH ×3 (06:37→16:31)
[2023-06-11] MEDS: INSULIN (NOVOLOG) ASPART 100 UNITS/ML 10ML VIAL SQ SCH ×3 (08:23→16:31)
[2023-06-11] MEDS: CHOLECALCIFEROL (VIT D3) 1,000 UNIT (25 MCG) TABLET PO SCH (10:05)
[2023-06-11] MEDS: NICOTINE 14 MG/24 HOURS TOPICAL PATCH TD SCH (10:05)
[2023-06-11] MEDS: TAMSULOSIN HCL 0.4 MG CAP PO SCH (10:05)
[2023-06-11] MEDS: LIDOCAINE 5% TOPICAL PATCH TP SCH (10:05)
[2023-06-11] MEDS: ASPIRIN 81 MG CHEWABLE TABLETS PO SCH (10:05)
[2023-06-11] MEDS: OMEGA-3 ACID ETHYL ESTERS (FATTY-ACIDS) 1 GM CAPSULE (FP) PO SCH ×2 (10:05→21:20)
[2023-06-11] MEDS: ESCITALOPRAM OXALATE 20 MG TABLET PO SCH (10:05)
[2023-06-11] MEDS: PANTOPRAZOLE 40 MG TABLET PO SCH (10:05)
[2023-06-11] MEDS: DAPAGLIFLOZIN PROPANEDIOL 10 MG TABLET PO SCH (10:06)
[2023-06-11] MEDS: CILOSTAZOL 50 MG TABLET PO SCH ×2 (10:06→21:20)
[2023-06-11] MEDS: EZETIMIBE 10 MG TABLET (FP) PO SCH (10:06)
[2023-06-11] MEDS: PATIENT'S OWN MEDICATION (NON-FORMULARY) (Insulin Glargine,Hum.Rec.Anlog [Basaglar Kwikpen SQ SCH ×2 (10:12→21:21)
[2023-06-11] MEDS: MELATONIN 5 MG TABLETS PO SCH (21:20)
[2023-06-11] MEDS: ROSUVASTATIN CA 10 MG TABLET PO SCH (21:20)
[2023-06-11] MEDS: THIAMINE HCL 100 MG TABLET (FP) PO SCH (21:20)
[2023-06-11] MEDS: ARTIFICIAL TEARS (POLYVINYL ALCOHOL) OPTH DROPS OU PRN (21:21)
[2023-06-11] MEDS: LIDOCAINE PATCH REMOVAL MC SCH (22:01)
[2023-06-12] MEDS: INSULIN SLIDING SCALE (NOVOLOG) 1 VIAL SQ SCH ×3 (06:44→17:00)
[2023-06-12] MEDS: GABAPENTIN 300 MG CAPSULE PO SCH ×3 (06:44→21:14)
[2023-06-12] MEDS: INSULIN (NOVOLOG) ASPART 100 UNITS/ML 10ML VIAL SQ SCH ×3 (07:55→17:01)
[2023-06-12] MEDS: ARTIFICIAL TEARS (POLYVINYL ALCOHOL) OPTH DROPS OU PRN (08:36)
[2023-06-12] MEDS: ESCITALOPRAM OXALATE 20 MG TABLET PO SCH (09:42)
[2023-06-12] MEDS: PANTOPRAZOLE 40 MG TABLET PO SCH (09:42)
[2023-06-12] MEDS: OMEGA-3 ACID ETHYL ESTERS (FATTY-ACIDS) 1 GM CAPSULE (FP) PO SCH ×2 (09:42→21:14)
[2023-06-12] MEDS: ASPIRIN 81 MG CHEWABLE TABLETS PO SCH (09:42)
[2023-06-12] MEDS: CHOLECALCIFEROL (VIT D3) 1,000 UNIT (25 MCG) TABLET PO SCH (09:42)
[2023-06-12] MEDS: CILOSTAZOL 50 MG TABLET PO SCH ×2 (09:42→21:14)
[2023-06-12] MEDS: TAMSULOSIN HCL 0.4 MG CAP PO SCH (09:42)
[2023-06-12] MEDS: EZETIMIBE 10 MG TABLET (FP) PO SCH (09:43)
[2023-06-12] MEDS: DAPAGLIFLOZIN PROPANEDIOL 10 MG TABLET PO SCH (09:43)
[2023-06-12] MEDS: NICOTINE 14 MG/24 HOURS TOPICAL PATCH TD SCH (09:44)
[2023-06-12] MEDS: LIDOCAINE 5% TOPICAL PATCH TP SCH (09:44)
[2023-06-12] MEDS: PATIENT'S OWN MEDICATION (NON-FORMULARY) (Insulin Glargine,Hum.Rec.Anlog [Basaglar Kwikpen SQ SCH ×2 (09:48→21:12)
[2023-06-12] MEDS: LIDOCAINE PATCH REMOVAL MC SCH (21:13)
[2023-06-12] MEDS: THIAMINE HCL 100 MG TABLET (FP) PO SCH (21:14)
[2023-06-12] MEDS: ROSUVASTATIN CA 10 MG TABLET PO SCH (21:14)
[2023-06-12] MEDS: MELATONIN 5 MG TABLETS PO SCH (21:14)
[2023-06-13] MEDS: GABAPENTIN 300 MG CAPSULE PO SCH (06:19)
[2023-06-13] MEDS: INSULIN SLIDING SCALE (NOVOLOG) 1 VIAL SQ SCH (06:25)
[2023-06-13 07:02] VITALS: TEMP 97.7
[2023-06-13] MEDS: cloNIDine HCL 0.1 MG TABLET PO PRN (07:02)
[2023-06-13] MEDS: INSULIN (NOVOLOG) ASPART 100 UNITS/ML 10ML VIAL SQ SCH (07:49)
[2023-06-13] MEDS: PANTOPRAZOLE 40 MG TABLET PO SCH (09:37)
[2023-06-13] MEDS: ASPIRIN 81 MG CHEWABLE TABLETS PO SCH (09:37)
[2023-06-13] MEDS: TAMSULOSIN HCL 0.4 MG CAP PO SCH (09:37)
[2023-06-13] MEDS: OMEGA-3 ACID ETHYL ESTERS (FATTY-ACIDS) 1 GM CAPSULE (FP) PO SCH (09:37)
[2023-06-13] MEDS: CHOLECALCIFEROL (VIT D3) 1,000 UNIT (25 MCG) TABLET PO SCH (09:37)
[2023-06-13] MEDS: ESCITALOPRAM OXALATE 20 MG TABLET PO SCH (09:37)
[2023-06-13 09:39] VITALS: BP 108/62; PULSE 81
[2023-06-13] MEDS: DAPAGLIFLOZIN PROPANEDIOL 10 MG TABLET PO SCH (09:39)
[2023-06-13] MEDS: CILOSTAZOL 50 MG TABLET PO SCH (09:39)
[2023-06-13] MEDS: EZETIMIBE 10 MG TABLET (FP) PO SCH (09:39)
[2023-06-13] MEDS: LIDOCAINE 5% TOPICAL PATCH TP SCH (09:41)
[2023-06-13] MEDS: NICOTINE 14 MG/24 HOURS TOPICAL PATCH TD SCH (09:41)
[2023-06-13] MEDS: PATIENT'S OWN MEDICATION (NON-FORMULARY) (Insulin Glargine,Hum.Rec.Anlog [Basaglar Kwikpen SQ SCH (10:42)
== END 2023-06-13 09:55 | disposition home or self-care (01) | DRG 772 ==
LOC: YASAS 11:09 → Y6N 13:12 → Y5N 13:30
PROVIDERS: ADMIT Allergy & Immunology; ATTEND Psychiatry & Neurology Pain Medicine
PROC: HZ42ZZZ Group Counseling for Substance Abuse Treatment, Cognitive-Behavioral (ICD-10-PCS; principal; 2023-05-16)
DX: F10.20 Alcohol dependence, uncomplicated (principal); F17.210 Nicotine dependence, cigarettes, uncomplicated; F10.280 Alcohol dependence with alcohol-induced anxiety disorder; E78.1 Pure hyperglyceridemia; I25.10 Atherosclerotic heart disease of native coronary artery without angina pectoris; I10 Essential (primary) hypertension; Z95.1 Presence of aortocoronary bypass graft; Z95.5 Presence of coronary angioplasty implant and graft; K21.9 Gastro-esophageal reflux disease without esophagitis; E11.59 Type 2 diabetes mellitus with other circulatory complications; E11.65 Type 2 diabetes mellitus with hyperglycemia; Z79.4 Long term (current) use of insulin; H04.123 Dry eye syndrome of bilateral lacrimal glands; N40.0 Benign prostatic hyperplasia without lower urinary tract symptoms; Z95.828 Presence of other vascular implants and grafts; Z87.19 Personal history of other diseases of the digestive system; Z86.59 Personal history of other mental and behavioral disorders
CPT/HCPCS: 36415; 80053; 80305; 81003; 82140; 82962; 85025; 85027; 85610; 86780; 87635; 87811; 93005; 93010

== ENCOUNTER 2024-01-09 11:52 | Inpatient (IN) | payer OTHER ==
[2024-01-09 12:15] VITALS: BMI 20.9
[2024-01-09] MEDS ORDERED: BENZOCAINE/MENTHOL (CHLORASEPTIC ) LOZENGE MM PRN (12:46)
[2024-01-09] MEDS ORDERED: hydrOXYzine PAMOATE 25 MG CAPSULE (FP) PO PRN (12:46)
[2024-01-09] MEDS ORDERED: BENZONATATE 200 MG CAPSULE PO PRN (12:46)
[2024-01-09] MEDS ORDERED: IBUPROFEN 400 MG TABLET (FP) PO PRN (12:46)
[2024-01-09] MEDS ORDERED: DICYCLOMINE HCL 10 MG CAPSULE PO PRN (12:46)
[2024-01-09] MEDS ORDERED: MAG HYDROX/AL HYDROX/SIMETH 30 ML UNIT-DOSE CUP PO PRN (12:46)
[2024-01-09] MEDS ORDERED: IBUPROFEN 600 MG TABLET (FP) PO PRN (12:46)
[2024-01-09] MEDS ORDERED: LORazepam 1 MG TABLET PO PRN (12:46)
[2024-01-09] MEDS ORDERED: ACETAMINOPHEN 325 MG TABLET (FP) PO PRN (12:46)
[2024-01-09] MEDS ORDERED: LOPERAMIDE HCL 2 MG CAPSULE PO PRN (12:46)
[2024-01-09] MEDS ORDERED: NALOXONE HCL 0.4 MG/ML VIAL IM PRN (12:46)
[2024-01-09] MEDS ORDERED: NALOXONE HCL (KLOXXADO) 8 MG SPRAY NS PRN (12:46)
[2024-01-09] MEDS ORDERED: MAGNESIUM HYDROX 2400MG/30ML ORAL SUSPENSION 30 ML CUP PO PRN (12:46)
[2024-01-09] MEDS ORDERED: POLYETHYLENE GLYCOL (HEALTHYLAX) 3350 17 GM PACKET PO PRN (12:46)
[2024-01-09] MEDS ORDERED: guaiFENesin 600 MG TABLET.ER (FP) PO PRN (12:46)
[2024-01-09] MEDS ORDERED: ONDANSETRON *ODT* 4 MG TABLET SL PRN (12:46)
[2024-01-09] MEDS ORDERED: BISMUTH SUBSALICYLATE 262 MG/15 ML BTL PO PRN (12:46)
[2024-01-09] MEDS: LORazepam 2 MG TABLET PO ONE (13:55)
[2024-01-09] MEDS: PRENATAL VITAMINS W/ FOLIC ACID TABLET (FP) PO SCH (13:55)
[2024-01-09] MEDS: LORazepam 1 MG TABLET PO ONE (13:55)
[2024-01-09] MEDS: NICOTINE 14 MG/24 HOURS TOPICAL PATCH TD SCH (13:55)
[2024-01-09] MEDS ORDERED: INSULIN (NOVOLOG) ASPART 100 UNITS/ML 10ML VIAL ONE (15:19)
[2024-01-09] MEDS: INSULIN (NOVOLOG) ASPART 100 UNITS/ML 10ML VIAL SQ ONE (15:27)
[2024-01-09] MEDS: LORazepam 2 MG TABLET PO SCH (16:59)
[2024-01-09] MEDS: INSULIN ASPART SLIDING SCALE (NOVOLOG) 1 VIAL SQ SCH ×2 (17:03→20:10)
[2024-01-09] MEDS: ROSUVASTATIN CA 20 MG TABLET PO SCH (22:45)
[2024-01-09] MEDS: MELATONIN 5 MG TABLETS PO SCH (22:45)
[2024-01-09] MEDS: GABAPENTIN 300 MG CAPSULE PO SCH (22:45)
[2024-01-09] MEDS: THIAMINE HCL 100 MG TABLET (FP) PO SCH (22:45)
[2024-01-10] MEDS: TAMSULOSIN HCL 0.4 MG CAP PO SCH (08:50)
[2024-01-10] MEDS ORDERED: CILOSTAZOL 50 MG TABLET PO SCH (10:00)
[2024-01-10] MEDS ORDERED: LIRAGLUTIDE 0.6 MG/0.1 ML PEN.INJCTR SQ SCH (10:00)
[2024-01-10] MEDS: LOSARTAN POTASSIUM 50 MG TABLET PO SCH (10:27)
[2024-01-10] MEDS: amLODIPine BESYLATE 5 MG TABLET (FP) PO SCH (10:27)
[2024-01-10] MEDS: PANTOPRAZOLE 40 MG TABLET PO SCH (10:27)
[2024-01-10] MEDS: EZETIMIBE 10 MG TABLET (FP) PO SCH (10:27)
[2024-01-10] MEDS: CLOPIDOGREL BISULFATE 75 MG TABLET (FP) PO SCH (10:27)
[2024-01-10] MEDS: CILOSTAZOL 50 MG TABLET PO SCH (10:28)
[2024-01-10] MEDS ORDERED: INSULIN (NOVOLOG) ASPART 100 UNITS/ML 10ML VIAL ONE (11:47)
[2024-01-10 14:38] LABS: HEMATOCRIT 48.9 % (35.4-49); HEMOGLOBIN 16.1 GM/dL (11.7-16.9); MCH 31.4 pg (25.7-33.7); MEAN CELL VOLUME 95.3 fl (80-96); MEAN PLT VOLUME 9.1 fl (7.5-11.1); PLATELET COUNT 149 10^3/uL (134-434); RBC 5.13 M/mm3 (4.00-5.60); RDW 13.4 % (11.9-15.9); WHITE BLOOD COUNT 4.2 K/mm3 (4.0-10.0)
[2024-01-10 14:57] LABS: POTASSIUM 4.7 mmol/L (3.5-5.1)
[2024-01-10 15:07] LABS: ALBUMIN 3.6 g/dl (3.4-5.0); BLOOD UREA NITROGEN 23.8 mg/dL (7-18); CALCIUM 9.2 mg/dL (8.5-10.1)
[2024-01-10 15:11] LABS: BILIRUBIN,TOTAL 0.4 mg/dL (0.2-1); CREATININE 1.9 mg/dL (0.55-1.3); TOT PROT 6.7 g/dl (6.4-8.2)
[2024-01-10] MEDS: RIFAXIMIN 550 MG TABLET PO SCH (22:29)
[2024-01-11] MEDS: LORazepam 1 MG TABLET PO SCH (05:40)
[2024-01-11] MEDS ORDERED: INSULIN (NOVOLOG) ASPART 100 UNITS/ML 10ML VIAL ONE ×3 (06:22→17:14)
[2024-01-11] MEDS: INSULIN ASPART SLIDING SCALE (NOVOLOG) 1 VIAL SQ SCH (06:23)
[2024-01-11] MEDS: LACTULOSE 20 GM/30 ML UDC (FOR ORAL USE ONLY) PO SCH (17:40)
[2024-01-12] MEDS ORDERED: LORazepam 0.5 MG TABLET PO PRN
[2024-01-12] MEDS: LORazepam 0.5 MG TABLET PO SCH (05:23)
[2024-01-12] MEDS ORDERED: INSULIN (NOVOLOG) ASPART 100 UNITS/ML 10ML VIAL ONE (05:27)
[2024-01-12 12:46] LABS: POTASSIUM 3.8 mmol/L (3.5-5.1)
[2024-01-12 13:04] LABS: CALCIUM 9.6 mg/dL (8.5-10.1)
[2024-01-12 13:05] LABS: ALBUMIN 3.3 g/dl (3.4-5.0); BLOOD UREA NITROGEN 31.7 mg/dL (7-18)
[2024-01-12 13:08] LABS: CREATININE 1.8 mg/dL (0.55-1.3); PHOSPHOROUS 3.6 mg/dL (2.5-4.9)
[2024-01-12 17:31] VITALS: RESP 16
[2024-01-13] MEDS: LORazepam 0.5 MG TABLET PO ONE (06:00)
[2024-01-13 07:02] VITALS: BP 123/70; PULSE 96; TEMP 98.4
== END 2024-01-13 09:08 | disposition home or self-care (01) | DRG 775 ==
LOC: YASAS 11:52 → Y6N 15:05
PROVIDERS: ADMIT Allergy & Immunology; ATTEND Surgery
PROC: HZ2ZZZZ Detoxification Services for Substance Abuse Treatment (ICD-10-PCS; principal; 2024-01-09)
DX: F10.230 Alcohol dependence with withdrawal, uncomplicated (principal); F17.210 Nicotine dependence, cigarettes, uncomplicated; F10.282 Alcohol dependence with alcohol-induced sleep disorder; F10.24 Alcohol dependence with alcohol-induced mood disorder; I25.810 Atherosclerosis of coronary artery bypass graft(s) without angina pectoris; Z95.1 Presence of aortocoronary bypass graft; E78.5 Hyperlipidemia, unspecified; E11.59 Type 2 diabetes mellitus with other circulatory complications; Z79.4 Long term (current) use of insulin; Z79.85 Long-term (current) use of injectable non-insulin antidiabetic drugs; N40.0 Benign prostatic hyperplasia without lower urinary tract symptoms; R79.89 Other specified abnormal findings of blood chemistry; Z95.828 Presence of other vascular implants and grafts; Z88.8 Allergy status to other drugs, medicaments and biological substances
CPT/HCPCS: 36415; 80053; 80069; 80307; 82140; 82962; 83036; 85027; 86780; 93005; 93010

== ENCOUNTER 2024-01-27 11:02 | Inpatient (IN) | payer OTHER ==
[2024-01-27 12:04] VITALS: BMI 20.6
[2024-01-27] MEDS ORDERED: ONDANSETRON *ODT* 4 MG TABLET SL PRN (12:13)
[2024-01-27] MEDS ORDERED: hydrOXYzine PAMOATE 25 MG CAPSULE (FP) PO PRN (12:13)
[2024-01-27] MEDS ORDERED: POLYETHYLENE GLYCOL (HEALTHYLAX) 3350 17 GM PACKET PO PRN (12:13)
[2024-01-27] MEDS ORDERED: MAGNESIUM HYDROX 2400MG/30ML ORAL SUSPENSION 30 ML CUP PO PRN (12:13)
[2024-01-27] MEDS ORDERED: BISMUTH SUBSALICYLATE 524 MG/30 ML PO PRN (12:13)
[2024-01-27] MEDS ORDERED: BENZOCAINE/MENTHOL (CHLORASEPTIC ) LOZENGE MM PRN (12:13)
[2024-01-27] MEDS ORDERED: NICOTINE POLACRILEX 2 MG LOZENGE BC PRN (12:13)
[2024-01-27] MEDS ORDERED: BENZONATATE 200 MG CAPSULE PO PRN (12:13)
[2024-01-27] MEDS ORDERED: MAG HYDROX/AL HYDROX/SIMETH 30 ML UNIT-DOSE CUP PO PRN (12:13)
[2024-01-27] MEDS ORDERED: LOPERAMIDE HCL 2 MG CAPSULE PO PRN (12:13)
[2024-01-27] MEDS ORDERED: IBUPROFEN 600 MG TABLET (FP) PO PRN (12:13)
[2024-01-27] MEDS ORDERED: ACETAMINOPHEN 325 MG TABLET (FP) PO PRN (12:13)
[2024-01-27] MEDS ORDERED: IBUPROFEN 400 MG TABLET (FP) PO PRN (12:13)
[2024-01-27] MEDS ORDERED: guaiFENesin 600 MG TABLET.ER (FP) PO PRN (12:13)
[2024-01-27] MEDS ORDERED: NICOTINE POLACRILEX 2 MG GUM BUC PRN (12:13)
[2024-01-27] MEDS ORDERED: CLOPIDOGREL BISULFATE 75 MG TABLET (FP) PO SCH (12:30)
[2024-01-27] MEDS ORDERED: PANTOPRAZOLE 40 MG TABLET PO SCH ×2 (12:30→13:30)
[2024-01-27] MEDS ORDERED: TAMSULOSIN HCL 0.4 MG CAP PO SCH ×2 (12:30→13:30)
[2024-01-27] MEDS: diazePAM 5 MG TABLET PO ONE ×2 (13:50→13:52)
[2024-01-27] MEDS: amLODIPine BESYLATE 5 MG TABLET (FP) PO SCH ×2 (13:51→13:54)
[2024-01-27] MEDS: INSULIN ASPART SLIDING SCALE (NOVOLOG) 1 VIAL SQ SCH (14:29)
[2024-01-27] MEDS ORDERED: INSULIN (NOVOLOG) ASPART 100 UNITS/ML 10ML VIAL ONE ×2 (14:34→17:05)
[2024-01-27] MEDS: GABAPENTIN 300 MG CAPSULE PO SCH (14:55)
[2024-01-27] MEDS: CLOPIDOGREL BISULFATE 75 MG TABLET (FP) PO SCH (15:25)
[2024-01-27] MEDS: PANTOPRAZOLE 40 MG TABLET PO SCH (15:43)
[2024-01-27] MEDS: TAMSULOSIN HCL 0.4 MG CAP PO SCH (15:43)
[2024-01-27] MEDS ORDERED: PATIENT'S OWN MEDICATION (NON-FORMULARY) (Dulaglutide [Trulicity] 3 MG/0.5 ML Pen.Injctr) SQ SCH (15:45)
[2024-01-27] MEDS: diazePAM 5 MG TABLET PO SCH (17:15)
[2024-01-27] MEDS ORDERED: ROSUVASTATIN CA 10 MG TABLET ONE (21:37)
[2024-01-27] MEDS: ROSUVASTATIN CA 20 MG TABLET PO SCH (22:28)
[2024-01-27] MEDS: THIAMINE 100 MG TABLET PO SCH (22:29)
[2024-01-27] MEDS: MELATONIN 5 MG TABLETS PO SCH (22:29)
[2024-01-28] MEDS: diazePAM 5 MG TABLET PO SCH (05:42)
[2024-01-28] MEDS: PRENATAL VITAMINS W/ FOLIC ACID TABLET (FP) PO SCH (09:51)
[2024-01-28] MEDS: FOLIC ACID 1 MG TABLET (FP) PO SCH (09:52)
[2024-01-28] MEDS: EZETIMIBE 10 MG TABLET (FP) PO SCH (10:51)
[2024-01-28] MEDS: ESCITALOPRAM OXALATE 20 MG TABLET PO SCH (11:21)
[2024-01-28] MEDS ORDERED: INSULIN (NOVOLOG) ASPART 100 UNITS/ML 10ML VIAL ONE ×2 (16:57→22:15)
[2024-01-29] MEDS: DICYCLOMINE HCL 10 MG CAPSULE PO PRN (01:43)
[2024-01-29] MEDS: diazePAM 5 MG TABLET PO SCH (05:28)
[2024-01-29] MEDS ORDERED: INSULIN ASPART SLIDING SCALE (NOVOLOG) 1 VIAL SQ ONE (06:45)
[2024-01-29] MEDS: ESCITALOPRAM OXALATE 10 MG TABLET PO SCH (09:42)
[2024-01-29] MEDS ORDERED: INSULIN (NOVOLOG) ASPART 100 UNITS/ML 10ML VIAL ONE ×2 (17:07→22:21)
[2024-01-29] MEDS ORDERED: amLODIPine BESYLATE 5 MG TABLET (FP) PO SCH (17:53)
[2024-01-29] MEDS: diazePAM 5 MG TABLET PO PRN (22:24)
[2024-01-30] MEDS: diazePAM 5 MG TABLET PO ONE (06:00)
[2024-01-30 08:56] VITALS: BP 138/77; PULSE 76; RESP 16; TEMP 97.1
[2024-01-30] MEDS: amLODIPine BESYLATE 10 MG TABLET (FP) PO SCH (09:51)
[2024-01-31] MEDS ORDERED: DULAGLUTIDE 3 MG SQ SCH (10:00)
[2024-01-31] MEDS ORDERED: PATIENT'S OWN MEDICATION (NON-FORMULARY) (Dulaglutide [Trulicity] 1.5 MG/0.5 ML Pen.Injctr SQ SCH (10:00)
== END 2024-01-30 12:35 | disposition home or self-care (01) | DRG 775 ==
LOC: YASAS 11:02 → Y6N 12:46
PROVIDERS: ADMIT Allergy & Immunology; ATTEND Surgery
PROC: HZ2ZZZZ Detoxification Services for Substance Abuse Treatment (ICD-10-PCS; principal; 2024-01-27)
DX: F10.230 Alcohol dependence with withdrawal, uncomplicated (principal); F17.210 Nicotine dependence, cigarettes, uncomplicated; F10.280 Alcohol dependence with alcohol-induced anxiety disorder; F32.A Depression, unspecified; I25.10 Atherosclerotic heart disease of native coronary artery without angina pectoris; I10 Essential (primary) hypertension; Z95.1 Presence of aortocoronary bypass graft; E78.5 Hyperlipidemia, unspecified; K21.9 Gastro-esophageal reflux disease without esophagitis; N40.0 Benign prostatic hyperplasia without lower urinary tract symptoms; E10.49 Type 1 diabetes mellitus with other diabetic neurological complication; Z79.85 Long-term (current) use of injectable non-insulin antidiabetic drugs; Z79.4 Long term (current) use of insulin
CPT/HCPCS: 80305; 80307; 82962; 93005; 93010

== ENCOUNTER 2024-04-05 12:59 | Inpatient (IN) | payer OTHER ==
[2024-04-05 13:44] VITALS: BMI 19.3
[2024-04-05] MEDS ORDERED: guaiFENesin 600 MG TABLET.ER (FP) PO PRN (14:03)
[2024-04-05] MEDS ORDERED: BISMUTH SUBSALICYLATE 524 MG/30 ML PO PRN (14:03)
[2024-04-05] MEDS ORDERED: LOPERAMIDE HCL 2 MG CAPSULE PO PRN (14:03)
[2024-04-05] MEDS ORDERED: IBUPROFEN 400 MG TABLET (FP) PO PRN (14:03)
[2024-04-05] MEDS ORDERED: NICOTINE POLACRILEX 4 MG GUM BUC PRN (14:03)
[2024-04-05] MEDS ORDERED: IBUPROFEN 600 MG TABLET (FP) PO PRN (14:03)
[2024-04-05] MEDS ORDERED: NALOXONE HCL 0.4 MG/ML VIAL IM PRN (14:03)
[2024-04-05] MEDS ORDERED: BENZOCAINE/MENTHOL (CHLORASEPTIC ) LOZENGE MM PRN (14:03)
[2024-04-05] MEDS ORDERED: POLYETHYLENE GLYCOL (HEALTHYLAX) 3350 17 GM PACKET PO PRN (14:03)
[2024-04-05] MEDS ORDERED: ACETAMINOPHEN 325 MG TABLET (FP) PO PRN (14:03)
[2024-04-05] MEDS ORDERED: MAGNESIUM HYDROX 2400MG/30ML ORAL SUSPENSION 30 ML CUP PO PRN (14:03)
[2024-04-05] MEDS ORDERED: MAG HYDROX/AL HYDROX/SIMETH 30 ML UNIT-DOSE CUP PO PRN (14:03)
[2024-04-05] MEDS ORDERED: BENZONATATE 200 MG CAPSULE PO PRN (14:03)
[2024-04-05] MEDS ORDERED: NALOXONE (NARCAN) HCL 4 MG/0.1 ML SPRAY NS PRN (14:03)
[2024-04-05] MEDS ORDERED: DICYCLOMINE HCL 10 MG CAPSULE PO PRN (14:03)
[2024-04-05] MEDS ORDERED: PATIENT'S OWN MEDICATION (NON-FORMULARY) (Dulaglutide [Trulicity] 3 MG/0.5 ML Pen.Injctr) SQ SCH (14:15)
[2024-04-05] MEDS ORDERED: chlordiazePOXIDE HCL 25 MG CAPSULE ONE (15:13)
[2024-04-05] MEDS ORDERED: hydrOXYzine PAMOATE 25 MG CAPSULE (FP) PO ONE (15:14)
[2024-04-05] MEDS: chlordiazePOXIDE HCL 25 MG CAPSULE PO PRN (15:16)
[2024-04-05] MEDS: hydrOXYzine PAMOATE 25 MG CAPSULE (FP) PO PRN (15:18)
[2024-04-05] MEDS: PRENATAL VITAMINS W/ FOLIC ACID TABLET (FP) PO SCH (16:00)
[2024-04-05] MEDS: ACAMPROSATE CALCIUM 333 MG TABLET.DR PO SCH (17:22)
[2024-04-05] MEDS: chlordiazePOXIDE HCL 25 MG CAPSULE PO SCH (17:23)
[2024-04-05] MEDS: INSULIN ASPART SLIDING SCALE (NOVOLOG) 1 VIAL SQ SCH (18:06)
[2024-04-05] MEDS: INSULIN (NOVOLOG) ASPART 100 UNITS/ML 10ML VIAL SQ SCH (19:21)
[2024-04-05] MEDS: ONDANSETRON *ODT* 4 MG TABLET SL PRN (19:59)
[2024-04-05] MEDS: MELATONIN 5 MG TABLETS PO SCH (22:34)
[2024-04-05] MEDS: FAMOTIDINE 20 MG TABLET PO SCH (22:35)
[2024-04-05] MEDS: THIAMINE 100 MG TABLET PO SCH (22:35)
[2024-04-05] MEDS: METHOCARBAMOL 500 MG TABLET PO PRN (22:35)
[2024-04-06] MEDS: amLODIPine BESYLATE 5 MG TABLET (FP) PO SCH (09:32)
[2024-04-06] MEDS: CLOPIDOGREL BISULFATE 75 MG TABLET (FP) PO SCH (09:32)
[2024-04-06] MEDS: TAMSULOSIN HCL 0.4 MG CAP PO SCH (09:32)
[2024-04-06] MEDS: LOSARTAN POTASSIUM 50 MG TABLET PO SCH (09:32)
[2024-04-06] MEDS: EZETIMIBE 10 MG TABLET (FP) PO SCH (10:07)
[2024-04-06] MEDS: ESCITALOPRAM OXALATE 20 MG TABLET PO SCH (11:00)
[2024-04-06 11:59] LABS: POTASSIUM 4.3 mmol/L (3.5-5.1)
[2024-04-06 12:03] LABS: CALCIUM 8.9 mg/dL (8.5-10.1)
[2024-04-06 12:04] LABS: ALBUMIN 3.6 g/dl (3.4-5.0); BLOOD UREA NITROGEN 36.4 mg/dL (7-18)
[2024-04-06 12:06] LABS: CREATININE 1.8 mg/dL (0.55-1.3); HEMATOCRIT 43.7 % (35.4-49); HEMOGLOBIN 14.6 GM/dL (11.7-16.9); MCH 30.8 pg (25.7-33.7); MCHC 33.3 g/dl (32.0-35.9); MEAN CELL VOLUME 92.6 fl (80-96); MEAN PLT VOLUME 8.3 fl (7.5-11.1); PLATELET COUNT 157 10^3/uL (134-434); RBC 4.72 M/mm3 (4.00-5.60); RDW 14.8 % (11.9-15.9); WHITE BLOOD COUNT 4.3 K/mm3 (4.0-10.0)
[2024-04-06 12:08] LABS: BILIRUBIN,TOTAL 1.1 mg/dL (0.2-1); TOT PROT 6.2 g/dl (6.4-8.2)
[2024-04-06] MEDS ORDERED: INSULIN ASPART SLIDING SCALE (NOVOLOG) 1 VIAL SQ ONE (17:33)
[2024-04-06] MEDS: ROSUVASTATIN CA 20 MG TABLET PO SCH (22:39)
[2024-04-07] MEDS: chlordiazePOXIDE HCL 25 MG CAPSULE PO SCH (05:57)
[2024-04-07] MEDS ORDERED: INSULIN ASPART SLIDING SCALE (NOVOLOG) 1 VIAL SQ ONE (07:59)
[2024-04-08] MEDS ORDERED: chlordiazePOXIDE HCL 10 MG CAPSULE PO PRN
[2024-04-08] MEDS: chlordiazePOXIDE HCL 10 MG CAPSULE PO SCH (05:40)
[2024-04-09] MEDS: chlordiazePOXIDE HCL 10 MG CAPSULE PO SCH (06:07)
[2024-04-09] MEDS ORDERED: GABAPENTIN 300 MG CAPSULE PO PRN (13:51)
[2024-04-10] MEDS: chlordiazePOXIDE HCL 10 MG CAPSULE PO ONE (05:38)
[2024-04-10 06:33] VITALS: RESP 16
[2024-04-10 08:52] VITALS: BP 102/64; PULSE 83; TEMP 97.7
== END 2024-04-10 09:59 | disposition home or self-care (01) | DRG 775 ==
LOC: YASAS 12:59 → Y3N 14:46
PROVIDERS: ADMIT Allergy & Immunology; ATTEND Surgery
PROC: HZ2ZZZZ Detoxification Services for Substance Abuse Treatment (ICD-10-PCS; principal; 2024-04-05)
DX: F10.230 Alcohol dependence with withdrawal, uncomplicated (principal); F10.280 Alcohol dependence with alcohol-induced anxiety disorder; F32.A Depression, unspecified; F41.9 Anxiety disorder, unspecified; E78.5 Hyperlipidemia, unspecified; I25.810 Atherosclerosis of coronary artery bypass graft(s) without angina pectoris; I10 Essential (primary) hypertension; I13.10 Hypertensive heart and chronic kidney disease without heart failure, with stage 1 through stage 4 chronic kidney disease, or unspecified chronic kidney disease; E11.41 Type 2 diabetes mellitus with diabetic mononeuropathy; E10.22 Type 1 diabetes mellitus with diabetic chronic kidney disease; N18.9 Chronic kidney disease, unspecified; Z79.4 Long term (current) use of insulin; K21.9 Gastro-esophageal reflux disease without esophagitis; N40.0 Benign prostatic hyperplasia without lower urinary tract symptoms; Z95.1 Presence of aortocoronary bypass graft
CPT/HCPCS: 36415; 80053; 80305; 80307; 82140; 82962; 85027; 86780; 93005; 93010; Q0162

== ENCOUNTER 2024-09-20 09:56 | Inpatient (IN) | payer OTHER ==
[2024-09-20 10:22] VITALS: BMI 19.9
[2024-09-20] MEDS ORDERED: BENZOCAINE/MENTHOL (CHLORASEPTIC ) LOZENGE MM PRN (12:15)
[2024-09-20] MEDS ORDERED: IBUPROFEN 400 MG TABLET (FP) PO PRN (12:15)
[2024-09-20] MEDS ORDERED: ACETAMINOPHEN 325 MG TABLET (FP) PO PRN (12:15)
[2024-09-20] MEDS ORDERED: IBUPROFEN 600 MG TABLET (FP) PO PRN (12:15)
[2024-09-20] MEDS ORDERED: NICOTINE POLACRILEX 2 MG GUM BUC PRN (12:15)
[2024-09-20] MEDS ORDERED: NALOXONE (NARCAN) HCL 4 MG/0.1 ML SPRAY NS PRN (12:15)
[2024-09-20] MEDS ORDERED: LOPERAMIDE HCL 2 MG CAPSULE PO PRN (12:15)
[2024-09-20] MEDS ORDERED: BISMUTH SUBSALICYLATE 262 MG/15 ML BTL PO PRN (12:15)
[2024-09-20] MEDS ORDERED: POLYETHYLENE GLYCOL (HEALTHYLAX) 3350 17 GM PACKET PO PRN (12:15)
[2024-09-20] MEDS ORDERED: guaiFENesin 600 MG TABLET.ER (FP) PO PRN (12:15)
[2024-09-20] MEDS ORDERED: MAG HYDROX/AL HYDROX/SIMETH 30 ML UNIT-DOSE CUP PO PRN (12:15)
[2024-09-20] MEDS ORDERED: MAGNESIUM HYDROX 2400MG/30ML ORAL SUSPENSION 30 ML CUP PO PRN (12:15)
[2024-09-20] MEDS ORDERED: BENZONATATE 200 MG CAPSULE PO PRN (12:15)
[2024-09-20] MEDS ORDERED: LORazepam 1 MG TABLET ONE (13:04)
[2024-09-20] MEDS: LORazepam 1 MG TABLET PO PRN (13:08)
[2024-09-20] MEDS ORDERED: INSULIN (NOVOLOG) ASPART 100 UNITS/ML 10ML VIAL ONE (13:13)
[2024-09-20] MEDS: INSULIN ASPART SLIDING SCALE (NOVOLOG) 1 VIAL SQ ONE (13:48)
[2024-09-20] MEDS: ONDANSETRON *ODT* 4 MG TABLET SL PRN (14:53)
[2024-09-20] MEDS: LORazepam 2 MG TABLET PO SCH (17:23)
[2024-09-20] MEDS: INSULIN ASPART SLIDING SCALE (NOVOLOG) 1 VIAL SQ SCH (17:25)
[2024-09-20] MEDS: THIAMINE 100 MG TABLET PO SCH (22:40)
[2024-09-20] MEDS: MELATONIN 5 MG TABLETS PO SCH (22:40)
[2024-09-20] MEDS: ROSUVASTATIN CA 20 MG TABLET PO SCH (22:40)
[2024-09-20] MEDS: CLOPIDOGREL BISULFATE 75 MG TABLET (FP) PO SCH (22:40)
[2024-09-20] MEDS: INSULIN (NOVOLOG) ASPART 100 UNITS/ML 10ML VIAL SQ SCH (22:41)
[2024-09-21] MEDS: TAMSULOSIN HCL 0.4 MG CAP PO SCH (08:39)
[2024-09-21] MEDS: amLODIPine BESYLATE 2.5 MG TABLET (FP) PO SCH (10:06)
[2024-09-21] MEDS: THIAMINE 100 MG TABLET PO SCH (10:07)
[2024-09-21] MEDS: PRENATAL VITAMINS W/ FOLIC ACID TABLET (FP) PO SCH (10:07)
[2024-09-21] MEDS: NICOTINE 14 MG/24 HOURS TOPICAL PATCH TD SCH (10:07)
[2024-09-21] MEDS: PANTOPRAZOLE 40 MG TABLET PO SCH (10:07)
[2024-09-21 14:03] LABS: HEMATOCRIT 42.9 % (35.4-49); MCH 30.4 pg (25.7-33.7); MCHC 32.5 g/dl (32.0-35.9); MEAN CELL VOLUME 93.5 fl (80-96); PLATELET COUNT 201 10^3/uL (134-434); RBC 4.59 M/mm3 (4.00-5.60); RDW 15.2 % (11.9-15.9); WHITE BLOOD COUNT 5.6 K/mm3 (4.0-10.0)
[2024-09-21 14:20] LABS: CHLORIDE 104 mmol/L (98-107); POTASSIUM 4.5 mmol/L (3.5-5.1); SODIUM 139 mmol/L (136-145)
[2024-09-21 14:22] LABS: ALBUMIN 3.6 g/dl (3.4-5.0); ANION GAP 7 mmol/L (4-13); CALCIUM 9.1 mg/dL (8.5-10.1); CO2 28 mmol/L (21-32)
[2024-09-21 14:23] LABS: BLOOD UREA NITROGEN 33.2 mg/dL (7-18); GLUCOSE,RANDOM 205 mg/dL (74-106)
[2024-09-21 14:25] LABS: SGPT/ALT 65 U/L (13-61)
[2024-09-21 14:26] LABS: CREATININE 1.9 mg/dL (0.55-1.3); SGOT/AST 43 U/L (15-37)
[2024-09-21 14:27] LABS: BILIRUBIN,TOTAL 0.7 mg/dL (0.2-1)
[2024-09-21 14:28] LABS: ALK PHOS 79 U/L (45-117)
[2024-09-21 14:30] LABS: TOT PROT 6.3 g/dl (6.4-8.2)
[2024-09-21] MEDS ORDERED: INSULIN (NOVOLOG) ASPART 100 UNITS/ML 10ML VIAL ONE (16:50)
[2024-09-22] MEDS: LORazepam 1 MG TABLET PO SCH (05:41)
[2024-09-22] MEDS: ESCITALOPRAM OXALATE 10 MG TABLET PO SCH (11:00)
[2024-09-22 16:50] VITALS: BP 124/69; PULSE 85; RESP 16; TEMP 98.7
[2024-09-23] MEDS ORDERED: LORazepam 0.5 MG TABLET PO PRN
[2024-09-23] MEDS ORDERED: LORazepam 0.5 MG TABLET PO SCH (05:00)
[2024-09-24] MEDS ORDERED: LORazepam 0.5 MG TABLET PO ONE (05:00)
== END 2024-09-22 19:47 | disposition left against medical advice (07) | DRG 770 ==
LOC: YASAS 09:56 → Y6N 12:27
PROVIDERS: ADMIT Allergy & Immunology; ATTEND Surgery
PROC: HZ2ZZZZ Detoxification Services for Substance Abuse Treatment (ICD-10-PCS; principal; 2024-09-20)
DX: F10.230 Alcohol dependence with withdrawal, uncomplicated (principal); F17.210 Nicotine dependence, cigarettes, uncomplicated; F10.280 Alcohol dependence with alcohol-induced anxiety disorder; F41.9 Anxiety disorder, unspecified; F32.A Depression, unspecified; I25.810 Atherosclerosis of coronary artery bypass graft(s) without angina pectoris; I13.10 Hypertensive heart and chronic kidney disease without heart failure, with stage 1 through stage 4 chronic kidney disease, or unspecified chronic kidney disease; E11.22 Type 2 diabetes mellitus with diabetic chronic kidney disease; N18.9 Chronic kidney disease, unspecified; Z79.4 Long term (current) use of insulin; Z95.1 Presence of aortocoronary bypass graft; N40.0 Benign prostatic hyperplasia without lower urinary tract symptoms
CPT/HCPCS: 36415; 80053; 80305; 80307; 82962; 85027; 86780; 93005; 93010; Q0162